=== PATIENT | male | born 1955 | race Caucasian/White ===

== ENCOUNTER 2022-03-08 10:31 | Outpatient (CLI) | payer OTHER, SELFPAY ==
--- OUTSIDE RECORDS SUMMARY | 2022-03-08 08:15 | XMS_ITS | Encounter Summary ---
:1955 Author Organization [facility] Address [address] [place] [id number] Care Team Providers Name Role Phone Unavailable Primary Care Provider Unavailable Reason for Visit Reason Comments Antibiotics Encounter Details Date Type Department Care Team Description 12/30/2021 Clinical Communication Division of Colon and Mathew Handley, Antibiotics Rectal Surgery in .[place], [place] [address] [facility] [address] [place] [id number] [phone] Social History Tobacco Use Types Packs/Day Years Used Date Smoking Tobacco: Every Day Cigarettes 0.3 10 Cigars Smokeless Tobacco: Never Alcohol Use Standard Drinks/Week Comments Yes 8 (1 standard drink = 0.6 oz pure alcoho l) Sex Assigned at Date Recorded Not on file documented as of this encounter Miscellaneous Notes Telephone Encounter - Criselda Burks, RGodwinN. - 12/30/2021 8:50 AM CDT 66 yr old male recently hospitalized for diverticulitis with abscess. He underwent CT aspiration (12/22/2021) of of a loosely organized pericolonic fluid pocket. Cultures/susceptibilities were pending at the time of discharge. He discharged to home on 12/23/2021 on a course of Augmentin. Dr Handley had reviewed the finalized culture information and if the patient was not improved on the current antibiotic (Augmentin), then the antibiotic was to be changed to Bactrim. When we contacted the patient on 12/28 he felt that he was improved and feeling well so the Augmentin was continued. The patient is calling today to report that his pain is better than when hospitalized but he feels that he is not improving as expected. He denies fever. He has some abdominal discomfort he gets up at night to the bathroom. Although the pain is overall less, he is asking about the antibiotic change wediscussed ASSESSMENT PLAN Bactrim was prescribed for 10 days. He is to call tomorrow, before the weekend, to update his status. Over the weekend, if he develops fever, increasing pain, or other worrisome symptoms, then he go for evaluation in the local ER/urgent care for repeat CT imaging to assess for worsening diverticulitis. Disposition/Recommendation: self-care is appropriate at this time, patient encouraged to call back with questions and recommended continue engagement in self-management activities. Information/Education: patient/caller able to teach back. Caller agreeable to plan of care: yes. The following references were used: nursing clinical judgement. Dr Handley is in agreement with this plan. Telephone Encounter - Lyric Schreiber - 12/30/2021 8:05 AM CDT - Communication preference (portal or call): Phone Summary of Call: Patient was told to call in about antibiotics. He is not doing much better and thinks that he needs to be on the antibiotics. [phone] documented in this encounter Plan of Treatment Not on filedocumented as of this encounter Visit Diagnoses Not on filedocumented in this encounter
--- OUTSIDE RECORDS SUMMARY | 2022-03-08 08:15 | XMS_ITS | Clinical Summary ---
:1955 Author Organization [facility] Address [address] [place] [address] Care Team Providers Name Role Phone Unavailable Primary Care Provider Unavailable Source Comments Patient records contain information from all sites at [facility]. For routine questions regarding patient records, call [phone] during business hours, M-F 8:00 AM - 5:00 PM Central Time. Record requests for emergency care only can be directed to [phone] at any time.[facility] Allergies No known active allergies Medications Medication Sig Dispensed Refills Start Date End Date Status lisinopriL Take 1 tablet by 0 09/13/2021 A ctive (PRINIVIL,ZESTRIL) mouth daily. 20 mg tablet aspirin [address] Take 81 mg by mouth 0 04/25/2011 Active tablet daily. clopidogreL Take 75 mg by mouth 0 09/13/2021 Active (PLAVIX) 75 mg daily. tablet ibuprofen Take 400 mg by mouth 0 Active (ADVIL,MOTRIN) 200 every 6 (six) hours mg tablet as needed for pain. UNABLE TO FIND Take 1 each by mouth 0 Active at bedtime as needed (sleep). Med Name: Sleep aid (patient uncertain of active ingredient) atenoloL (TENORMIN) Take 1 tablet (25 mg 0 2 Active 25 mg tablet total) by mouth daily. Please follow up with your PCP. Your heart rate was in the mid 40's-50's during hospitalization and was held for a heart rate <50. Determine with PCP if atenolol should be resumed, discontinued, or dose adjusted. acetaminophen Take 2 tablets (1,000 0 12/23/2021 Active (TYLENOL) 500 mg mg total) by mouth tablet every 6 (six) hours as needed for pain. oxyCODONE Take 1 tablet (5 mg 6 tablet 0 12/23/2021 Active (ROXICODONE) 5 mg total) by mouth every immediate release 4 (four) hours as tabletIndications: needed for moderate Acute Pain pain or score 4-6 of 10 (Take if pain is not relieved with Tylenol. Try to wean off over the next 3 days) Indication: Acute Pain. sulfamethoxazole-tr Take 1 tablet by 20 tablet 0 12/30/2021 Active imethoprim (BACTRIM mouth 2 (two) times a DS) 800-160 mg per day. tablet Active Problems Problem Noted Date Diverticulitis With Abscess 12/21/2021 Hypertensive Heart Disease Without Heart Failure 12/21 Hyperlipidemia 12/21/2021 Other Cerebral Infarction Due To Occlusion Or Stenosis Of Small Artery 12/21/2021 Overview: Formatting of this note might be differe nt from the original. 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 12/30/2021 Clinical Colon and Rectal Mary Handley Antibioti cs Communication Ochoa Ochoa M.D. 12/28/2021 Clinical Colon and Rectal Mary Handley Communication Surgery Jeri Ochoa 12/21/2021 - Hospital Encounter Mary Handley Diverti culitis With 12/23/2021 Jeri Ochoa Abscess (Primar y Dx) from Last 3 Months Immunizations Name Administration Dates Next Due Influenza Split 04/12/2011 Social History Tobacco Use Types Packs/Day Years Used Date Smoking Tobacco: Every Day Cigarettes 0.3 10 Cigars Smokeless Tobacco: Never Alcohol Use Standard Drinks/Week Comments Yes 8 (1 standard drink = 0.6 oz pure alcoho l) Sex Assigned at Date Recorded Not on file Last Filed Vital Signs Vital Sign Reading Time Taken Comments Blood Pressure 176/91 12/23/2021 2:40 PM CDT Pulse 50 12/23/2021 2:40 PM CDT Temperature 36.6 ??C (97.9 ??F) 12/23/2021 2:40 PM CDT Respiratory Rate 15 12/23/2021 2:40 PM CDT Oxygen Saturation 95% 12/23/2021 2:40 PM CDT Inhaled Oxygen Concentration - - Weight 68.2 kg (150 lb 5.7 oz) 12/21/2021 9:15 PM CDT Height 165 cm (5' 4.96) 12/22/2021 11:50 AM CDT Body Mass Index 25.05 12/21/2021 9:15 PM CDT Plan of Treatment Health Maintenance Due Date Last Done Comments CT Colonography 1955 Cologuard 1955 FIT 1955 HIV Screening 1955 Hepatitis C Screening 1955 Tobacco Cessation counseling 1955 Pneumococcal vaccine (65+ years) 1962 (1 - PCV) Lipid (Cholesterol) Screening 07/18/2012 07/18/2011 Colonoscopy 07/14/2013 07/14/2003 (Performed elsewhere), 06/04/2003 Colorectal Cancer Screening 07/14/2013 Depression Screening (Annual 06/12/2021 PHQ-2) COVID-19 Vaccine (4 - Booster for 07/19/2021 05/24/2021, , Pfizer series) 09/26/2020 Influenza Vaccine (#1) 2022 03/30/2021, 04/27/2020, 04/27/2020, Additional history exists Office Visit for Blood Pressure 03/23/2022 12/21/2021 Check / Re-check Creatinine Level 12/21/2022 12/21/2021, 05/25/2018, 09/14/2011, Additional history exists Potassium Level 12/21/2022 12/21/2021, 05/25/2018, 09/14/2011, Additional history exists Sodium Level 12/21/2022 12/21/2021, 05/25/2018, 09/14/2011, Additional history exists Fasting Glucose for Diabetes 12/21/2024 12/21/2021, 018, Screening 08/13/2011, Additional history exists DTaP,Tdap,and Td Vaccines (3 - Td 02/10/2030 02/11/2020, or Tdap) Zoster Vaccines Completed 08/31/2021, 04/14/2021 Abdominal Aortic Aneurysm (AAA) Completed 12/21/2021, 12/10 Screen Fall Risk Screen (Annual) Completed 12/22/2021 Medical Devices Implanted Type Area Implementation Manager Device Shelf Model / Identifier Expiration Serial / Date Lot Band-Annuloplasty Flex-25mm X 63mm - Winter [id number] Cardiac Valve Other/Legacy - Medtronic Implanted: Qty: 1 on 08/10/2011 Prosthesis See Implant Description Description: Device Implementation Manager - Proxama Body Location - Other. Mitral. Device Status Text - [id number]. Procedures Procedure Name Priority Date/Time Associated Comments Diagnosis CT ABSCESS OR RAD - Routine 12/22/2021 3:19 Results fo r this HEMATOMA OR CYST (most inpatients PM CDT procedu re are in ASPIRATION and all the results outpatients) section. BACTERIAL CULTURE, Timed 12/22/2021 2:42 Result s for this ANAEROBIC + SUSC PM CDT procedure a re in the results section. FUNGAL SMEAR Timed 12/22/2021 2:42 Results for this PM CDT procedure are i n the results section. FUNGAL CULTURE, Timed 12/22/2021 2:42 Results f or this ROUTINE PM CDT procedure are i n the results section. GRAM STAIN Timed 12/22/2021 2:42 Results for this PM CDT procedure are i n the results section. BACTERIAL CULTURE, Timed 12/22/2021 2:42 Result s for this AEROBIC + SUSC PM CDT procedure are in the results section. ADULT OXYGEN Routine 12/22/2021 2:40 THERAPY PM CDT CBC WITH Routine 12/21/2021 11:37 Results for this DIFFERENTIAL, B PM CDT procedure ar e in the results section. BASIC METABOLIC Routine 12/21/2021 11:37 Results for this PANEL, S/P PM CDT procedure are i n the results section. OUTSIDE CT BODY Routine 12/21/2021 1:35 Results f or this PM CDT procedure are i n the results section. from Last [address] Abscess or Hematoma or Cyst Aspiration (12/22/2021 3:19 PM CDT) Anatomical Region Laterality Modality Abdominal RST LOS, Vascular N/A Computed Rlof ography, Computed Interventional ARZ LOS, Procedural, Andi graphy Procedure FLA LOS Specimen (Source) Anatomical Collection Method Collection Time Re ceived Time Location / / Volume Laterality 12/22/2021 3:27 PM CDT Impressions 12/22/2021 3:[address]-guided aspiration of a loosely organized pericolonic fluid pocket. NR Narrative 12/22/2021 3:31 PM CDT EXAM: CT ABSCESS OR HEMATOMA OR CYST ASPIRATION PRE-PROCEDURE: Patient seen, evaluated, history reviewed, and approved for sedation. Airway, heart, and lung exam satisfactory for sedation. Discussed risks, benefits, alternatives for procedure, and/or sedation. The roles and responsib ilities of care team members, residents, and fellows were discussed. Patient understands informati on and questions answered. Informed consent obtained from the patient. Immediately prior to starti ng the procedure, in the presence of the assisting personnel, a procedural pause was conduc vasu to verify correct patient identity and verification of procedure to be performed, and as applic able, correct side and site, correct patient position, availability of implants, special equipm ent, or special requirements, and all image and specimen identification data. INTRAPROCEDURE: Moderate sedation was ad ministered by sedation nurse under my supervision. The patient was continuously monitored with real time oxygen saturation, heart rate, ECG rhythm strip and blood pressure throughout administra tion of the sedation and performance of the procedure. The total intra-procedural sedation time was : 15 minutes. TECHNIQUE: Sterile;1% lidocaine for loca l anesthesia and CT Guidance. Supine position. Lateral approach. Initial attempt to place a 10 [place] ReSolve Mini drain into the loosely organized pericolonic fluid was unsuccessful due t o the small size of the collection. Therefore, a 17-gauge introducer was used to aspirate 3 mL of fluid, which was sent for analysis. This was discussed after the procedure with Criselda Burns APRN ([id number]). ?? TARGET LOCATION: Small amount of loosely organized pericolonic fluid as seen on CT abdomen/pelvis 12/21/2021 (series 2, image 87). NEEDLE SIZE: 17 gauge. VOLUME ASPIRATED: 3 mL. FLUID DESCRIPTION: Thick, opaque, brown. COMPLICATION: None. ? BLOOD LOSS: None. PATIENT INSTRUCTIONS: Patient may be dis missed from the radiology department when dismissal criteria met. POST-PROCEDURE DIAGNOSIS: Diverticulitis . Procedure Note Stevie Barrios M.D. - 12/22/2021Forma tting of this note might be different from the original. EXAM: CT ABSCESS OR HEMATOMA OR CYST ASP IRATION PRE-PROCEDURE: Patient seen, evaluated, history reviewed, and approved for sedation. Airway, heart, and lung exam satisfactory for sedation. Discussed risks, benefits, alternatives for procedure, and/or sedation. The roles and responsib ilities of care team members, residents, and fellows were discussed. Patient understands informati on and questions answered. Informed consent obtained from the patient. Immediately prior to starti ng the procedure, in the presence of the assisting personnel, a procedural pause was conduc vasu to verify correct patient identity and verification of procedure to be performed, and as applic able, correct side and site, correct patient position, availability of implants, special equipm ent, or special requirements, and all image and specimen identification data. INTRAPROCEDURE: Moderate sedation was ad ministered by sedation nurse under my supervision. The patient was continuously monitored with real time oxygen saturation, heart rate, ECG rhythm strip and blood pressure throughout administra tion of the sedation and performance of the procedure. The total intra-procedural sedation time was : 15 minutes. TECHNIQUE: Sterile;1% lidocaine for loca l anesthesia and CT Guidance. Supine position. Lateral approach. Initial attempt to place a 10 [place] ReSolve Mini drain into the loosely organized pericolonic fluid was unsuccessful due t o the small size of the collection. Therefore, a 17-gauge introducer was used to aspirate 3 mL of fluid, which was sent for analysis. This was discussed after the procedure with Criselda Burns APRN ([id number]). TARGET LOCATION: Small amount of loosely organized pericolonic fluid as seen on CT abdomen/pelvis 12/21/2021 (series 2, image 87). NEEDLE SIZE: 17 gauge. VOLUME ASPIRATED: 3 mL. FLUID DESCRIPTION: Thick, opaque, brown. COMPLICATION: None. BLOOD LOSS: None. PATIENT INSTRUCTIONS: Patient may be dis missed from the radiology department when dismissal criteria met. POST-PROCEDURE DIAGNOSIS: Diverticulitis . IMPRESSION: CT-guided aspiration of a loosely organi zed pericolonic fluid pocket. NR Shoaib Colmenares APRNNZaria., D.N.P. IMG CT PROCEDURES (ABNORMAL) Bacterial Culture, Aerobic + Susc (12/22/2021 2:42 PM CDT) [facility] Method Time Signature Bacterial ESCHERICHIA COLI 12/25/2021 DTL Culture, 4+ 2:45 PM CDT Aerobic + (A) Susc Comment: Semi-Urgent Result. Bacterial Culture, Aerobic STREPTOCOCCUS INTERMEDIUS 12/25/2021 2:45 PM CDT DTL + Susc 4+ (A) Comment: Susceptibilities not performed per laboratory criteria. Semi-Urgent This is a semi-urgent result [facility] - ([place] Specimen Anatomical Collection Method Collection Time Receive d Time (Source) Location / / Volume Laterality Fluid (Abdomen) 12/22/2021 2:42 PM 2021 6:20 CDT PM CDT Comment: Specimen Source Site: Fluid Organism Antibiotic Method Susceptibility Escherichia coli Ampicillin SUSCEPTIBILITY, >16 mcg/mL: Res istant OSVALDO (MCG/ML) Escherichia coli Ampicillin + Sulbactam SUSCEPTIBILITY, 16/8 mcg /mL: OSVALDO (MCG/ML) Intermediate Escherichia coli Meropenem SUSCEPTIBILITY, <=0.12 mcg/mL: OSVALDO (MCG/ML) Susceptible Escherichia coli Ertapenem SUSCEPTIBILITY, <=0.25 mcg/mL: OSVALDO (MCG/ML) Susceptible Escherichia coli Piperacillin + Tazobactam SUSCEPTIBILITY, <=8/4 mcg/mL: OSVALDO (MCG/ML) Susceptible Escherichia coli Ciprofloxacin SUSCEPTIBILITY, >2 mcg/mL: Resi stant OSVALDO (MCG/ML) Escherichia coli Levofloxacin SUSCEPTIBILITY, >4 mcg/mL: Resi stant OSVALDO (MCG/ML) Escherichia coli Cefazolin SUSCEPTIBILITY, 4 mcg/mL: Inter mediate OSVALDO (MCG/ML) Escherichia coli Ceftriaxone SUSCEPTIBILITY, <=1 mcg/mL: Idania ceptible OSVALDO (MCG/ML) Escherichia coli Ceftazidime SUSCEPTIBILITY, <=4 mcg/mL: Idania ceptible OSVALDO (MCG/ML) Escherichia coli Cefepime SUSCEPTIBILITY, <=2 mcg/mL: Idania ceptible OSVALDO (MCG/ML) Escherichia coli Cefdinir SUSCEPTIBILITY, <=1 mcg/mL: Idania ceptible OSVALDO (MCG/ML) Escherichia coli Amikacin SUSCEPTIBILITY, <=8 mcg/mL: Idania ceptible OSVALDO (MCG/ML) Escherichia coli Gentamicin SUSCEPTIBILITY, >8 mcg/mL: Resi stant OSVALDO (MCG/ML) Escherichia coli Tobramycin SUSCEPTIBILITY, >8 mcg/mL: Resi stant OSVALDO (MCG/ML) Escherichia coli Aztreonam SUSCEPTIBILITY, <=4 mcg/mL: Idania ceptible OSVALDO (MCG/ML) Escherichia coli Trimethoprim + SUSCEPTIBILITY, <=0.5/9.5 mcg/m L: Sulfamethoxazole OSVALDO (MCG/ML) Susceptible Alyse Luciano APRN, Gerard.N.P., D.N.P. LAB MICROBIOLOGY - GENERAL ORDERABLES Performing Organization Address City/[facility] Phon e Number [facility] - [id number] [place] [address] Fungal Smear (12/22/2021 2:42 PM CDT) P athologist Signature Fungal Smear Negative. 12/23/2021 DTL 8:49 AM CDT Specimen Anatomical Collection Method Collection Time Receive d Time (Source) Location / / Volume Laterality Fluid (Abdomen) 12/22/2021 2:42 PM 2021 6:20 CDT PM CDT Comment: Specimen Source Site: Fluid Shoaib Colmenares APRNN.P., D.N.P. LAB MICROBIOLOGY - GENERAL ORDERABLES Performing Organization Address City/[facility] Phon e Number [facility] - [address] (ABNORMAL) Gram Stain (12/22/2021 2:42 PM CDT) Analysis Performed At Patho logist Time Signature Gram Stain White blood 12/22/2021 DTL cells, Many. 10:36 PM CDT (A) Gram Stain GRAM POSITIVE COCCI 12/22/2021 DTL Many. 10:36 PM CDT (A) Comment: Semi-Urgent Result. Semi-Urgent This is a semi-urgent result [facility] - ([place] Specimen Anatomical Collection Method Collection Time Receive d Time (Source) Location / / Volume Laterality Fluid (Abdomen) 12/22/2021 2:42 PM 2021 6:20 CDT PM CDT Comment: Specimen Source Site: Fluid Gerard Colmenares APRN.N.P., D.N.P. LAB MICROBIOLOGY - GENERAL ORDERABLES Performing Organization Address City/[facility] Phon e Number [facility] - [address] [place] [address] Fungal Culture, Routine (12/22/2021 2:42 PM CDT) [facility] Method Time Signature Fungal No growth 01/16/2022 DTL Culture, after 24 1:02 AM CDT Routine days of incubation. Specimen Anatomical Collection Method Collection Time Receive d Time (Source) Location / / Volume Laterality Fluid (Abdomen) 12/22/2021 2:42 PM 2021 6:20 CDT PM CDT Comment: Specimen Source Site: Fluid Shoaib Colmenares APRNN.P., D.N.P. LAB MICROBIOLOGY - GENERAL ORDERABLES Performing Organization Address City/[facility]/ZIP Code Phon e Number [facility] - [address] Bacterial Culture, Anaerobic + Susc (12/22/2021 2:42 PM CDT) [facility] Method Time Signature Bacterial No growth 12/29/2021 DTL Culture, after 7 7:22 AM CDT Anaerobic + days of Susc incubation. Specimen Anatomical Collection Method Collection Time Receive d Time (Source) Location / / Volume Laterality Fluid (Abdomen) 12/22/2021 2:42 PM 2021 6:20 CDT PM CDT Comment: Specimen Source Site: Fluid Gerard Colmenares APRN.N.P., D.N.P. LAB MICROBIOLOGY - GENERAL ORDERABLES Performing Organization Address City/State/ZIP Code Phon e Number [facility] - [address] [place], [place] [address] [facility] [place] [place] [address] [facility] 200 [facility] (ABNORMAL) CBC with Differential, Blood (12/21/2021 11:37 PM CDT) [facility] Method Time Signature Hemoglobin 12.2 (L) 13.2 - 12/22/2021 DTL 16.6 g/dL 1:05 AM CDT Hematocrit 35.7 (L) 38.3 - 12/22/2021 DTL 48.6 % 1:05 AM CDT Erythrocytes 3.67 (L) 4.35 - 12/22/2021 DTL 5.65 1:05 AM CDT x10(12)/L MCV 97.3 78.2 - 12/22/2021 DTL 97.9 fL 1:05 AM CDT RBC Distrib Width 11.7 (L) 11.8 - 12/22/2021 DTL 14.5 % 1:05 AM CDT Platelet Count 246 135 - 317 12/22/2021 DTL x10(9)/L 1:05 AM CDT Leukocytes 10.2 (H) 3.4 - 9.6 12/22/2021 DTL x10(9)/L 1:05 AM CDT Neutrophils 7.62 (H) 1.56 - 12/22/2021 DTL 6.45 1:05 AM CDT x10(9)/L Lymphocytes 1.64 0.95 - 12/22/2021 DTL 3.07 1:05 AM CDT x10(9)/L Monocytes 0.83 (H) 0.26 - 12/22/2021 DTL 0.81 1:05 AM CDT x10(9)/L Eosinophils 0.09 0.03 - 12/22/2021 DTL 0.48 1:05 AM CDT x10(9)/L Basophils <0.03 0.01 - 12/22/2021 DTL 0.08 1:05 AM CDT x10(9)/L Specimen Anatomical Collection Method Collection Time Receive d Time (Source) Location / / Volume Laterality Blood (Blood, 12/21/2021 11:37 12/22/2021 Venous) PM CDT 12:59 AM CDT Shoaib Colmenares APRNNGodwinP., D.N.P. LAB BLOOD ADD-ON Performing Organization Address City/State/ZIP Code Phon e Number [facility] - [address] [place], [place] [address] [facility] [place] [place] [address] [facility] 200 [facility] (ABNORMAL) Basic Metabolic Panel (12/21/2021 11:37 PM CDT) P athologist Signature Potassium, S 3.9 3.6 - 5.2 12/22/2021 DTL mmol/L 1:25 AM CDT Sodium, S 135 135 - 145 12/22/2021 DTL mmol/L 1:25 AM CDT Chloride, S 101 98 - 107 12/22/2021 DTL mmol/L 1:25 AM CDT Bicarbonate, S 20 (L) 22 - 29 12/22/2021 DTL mmol/L 1:25 AM CDT Anion Gap 14 7 - 15 12/22/2021 DTL 1:25 AM CDT BUN (Blood Urea 14 8 - 24 12/22/2021 DTL Nitrogen), S mg/dL 1:25 AM CDT Creatinine 1.03 0.74 - 12/22/2021 DTL 1.35 mg/dL 1:25 AM CDT eGFR-Non 76 >=60 12/22/2021 DTL Black/ mL/min/BSA 1:25 AM CDT Vietnamese Comment: ----ADDITIONAL INFORMATION---- Estimated GFR calculated using the 2009 CKD_EPI creatinine equation. eGFR-Black/ 88 >=60 mL/min/BSA 2021 1:25 AM CDT DTL Comment: ----ADDITIONAL INFORMATION---- Estimated GFR calculated using the 2009 CKD_EPI creatinine equation. Calcium, Total, S 8.4 (L) 8.8 - 10.2 mg/dL 12/22/2021 1:25 AM CDT DTL Glucose, S 79 70 - 140 mg/dL 12/22/2021 1:25 AM CDT D TL Specimen Anatomical Collection Method Collection Time Receive d Time (Source) Location / / Volume Laterality Blood (Blood, 12/21/2021 11:37 12/22/2021 1:09 Venous) PM CDT AM CDT Alyse Luciano APRN, C.N.P., D.N.P. LAB BLOOD ADD-ON Performing Organization Address City/State/ZIP Code Phon e Number [facility] - [address] [place], [place] [address] [facility] [place] [place] [address] [facility] [address] ABDOMEN PELVIS W-Outside CT Body (12/21/2021 1:35 PM CDT) Specimen (Source) Anatomical Collection Method Collection Time Re ceived Time Location / / Volume Laterality 12/21/2021 1:31 PM CDT Narrative [facility] - 12/21/2021 5:19 PM CDT This order has been created and auto-finalized to support the import of outside images. If available, original i nterpretation can be found on the Media Tab in Chart Review, in Document V iewer, or as an image in QREADS. If a re-interpretation or overread is re quired please follow defined workflow. ?? Provider Not In System IMG CT PROCEDURES Performing Organization Address City/State/ZIP Code Phon e Number [facility] IIMS NA from Last 3 Months Insurance Payer Benefit Plan / Subscriber ID Effective Phone Address T ype Group Dates [facility] [id number] 2010-Pr OCC CLAIMS I ndemnity ADMINISTRATION es[employer] [place] [address] [place] [address]
--- OUTSIDE RECORDS SUMMARY | 2022-03-08 08:15 | XMS_ITS | Encounter Summary ---
:[address] [facility] Address [address] [place] [address] Care Team Providers Name Role Phone Unavailable Primary Care Provider Unavailable Reason for Visit Reason Comments Update on antibiotics Encounter Details Date Type Department Care Team Description 12/31/2021 Clinical Communication Division of Colon Hafsa Handley Update on and Rectal Surgery Jeri Ochoa antibiotics in [place], [address] [place] [address] [address] [facility] [address] [place], [place] [phone] (Work) [phone] Social History Tobacco Use Types Packs/Day Years Used Date Smoking Tobacco: Every Day Cigarettes 0.3 10 Cigars Smokeless Tobacco: Never Alcohol Use Standard Drinks/Week Comments Yes 8 (1 standard drink = 0.6 oz pure alcoho l) Sex Assigned at Date Recorded Not on file documented as of this encounter Miscellaneous Notes Telephone Encounter - Lyric Schreiber - 12/31/2021 10:45 AM CDT - Communication preference (portal or call): Phone - if necessary Summary of Call: Patient started new antibiotic on . He is doing better on his antibiotics -so he will stay the course. [facility] in [place]. [phone] if you need to talk with him. documented in this encounter Plan of Treatment Not on filedocumented as of this encounter Visit Diagnoses Not on filedocumented in this encounter
--- OUTSIDE RECORDS SUMMARY | 2022-03-08 08:15 | XMS_ITS | Encounter Summary ---
:1955 Author Organization [facility] Address [address] [place] [address] Care Team Providers Name Role Phone Unavailable Primary Care Provider Unavailable Encounter Details Date Type Department Care Team Description 12/28/2021 Clinical Communication Division of Colon and Mathew Handley, Rectal Surgery in .[place], [place] [address] [facility] [address] [place] [phone] Social History Tobacco Use Types Packs/Day Years Used Date Smoking Tobacco: Every Day Cigarettes 0.3 10 Cigars Smokeless Tobacco: Never Alcohol Use Standard Drinks/Week Comments Yes 8 (1 standard drink = 0.6 oz pure alcoho l) Sex Assigned at Date Recorded Not on file documented as of this encounter Miscellaneous Notes Telephone Encounter - Criselda Burks RGodwinN. - 12/28/2021 9:16 AM CDT 66 yr old male recently hospitalized for diverticulitis with abscess. He underwent CT aspiration (12/22/2021) of of a loosely organized pericolonic fluid pocket. Cultures/susceptibilities were pending at the time of discharge. He discharged to home on 12/23/2021 on a course of Augmentin. Dr Handley has reviewed the finalized culture information and has asked me to contact the patient to update his status. If he is not improved, the antibiotic can be changed to Bactrim. If he is improvedand feeling well, he can finish the course of Augmentin. Mr Mulligan states that he is feeling improved and feels he is on the right track with regard to his current management. He states he has some soreness over the aspiration site but in general he is feeling much better. I have asked him to call us on 12/31/2021 to update his status. He will call earlier if he isconcerned about any symptoms. If he is not feeling remarkably improved, we will consider changing the antibiotic to Bactrim. He has the phone number to call Dr Handley office. documented in this encounter Plan of Treatment Not on filedocumented as of this encounter Visit Diagnoses Not on filedocumented in this encounter
--- OUTSIDE RECORDS SUMMARY | 2022-03-08 08:15 | XMS_ITS | Encounter Summary ---
:1955 Author Organization [facility] Address [address] [place] [address] Care Team Providers Name Role Phone Unavailable Primary Care Provider Unavailable Encounter Details Date Type Department Care Team Description 12/30/2021 Orders Only Division of Colon and Criselda Burks , Rectal Surgery in [place], [place] [address] [place] [phone] Social History Tobacco Use Types Packs/Day Years Used Date Smoking Tobacco: Every Day Cigarettes 0.3 10 Cigars Smokeless Tobacco: Never Alcohol Use Standard Drinks/Week Comments Yes 8 (1 standard drink = 0.6 oz pure alcoho l) Sex Assigned at Date Recorded Not on file documented as of this encounter Plan of Treatment Not on filedocumented as of this encounter Visit Diagnoses Not on filedocumented in this encounter
--- OUTSIDE RECORDS SUMMARY | 2022-03-08 08:15 | XMS_ITS | Clinical Summary ---
:1955 Author Organization [facility] [place] [address] Care Team Providers Name Role Phone Clinic, [facility] Primary Care Provider [phone] Allergies No known active allergies Medications Medication Sig Dispensed Refills Start Date End Date Status aspirin enteric coated Take 1 tablet by 0 04/25/2011 Active 81 mg tablet mouth once daily with a meal. lisinopriL (PRINIVIL; Take 1 Tablet (20 30 Tablet 0 09/13/2021 Active ZESTRIL) 20 mg mg) by mouth once tabletIndications: daily. Essential hypertension atenoloL (TENORMIN) 25 Take 1 Tablet (25 30 Tablet 0 2 Active mg tabletIndications: mg) by mouth once Essential hypertension daily. clopidogreL (PLAVIX) 75 Take 1 Tablet (75 90 Tablet 1 09/14/19 22 Active mg tabletIndications: mg) by mouth once Lt facial numbness, daily. Vertebral artery stenosis, left trimethoprim-sulfametho Take 1 tablet by 20 Tablet 0 2 Active xazole, 160-800 mg, mouth 2 (two) (BACTRIM DS, SEPTRA DS) times a day. tab Active Problems Problem Noted Date Encounter for immunization 12/21/2021 Hyperlipidemia 12/21/2021 Lacunar infarction 12/21/2021 Overview: Sep 01, 2020 Entered By: BAUDILIO RENE Comment: 2019 Other specified postprocedural states 12/21/2021 Vertebral artery stenosis 12/21/2021 Personal history of colonic polyps 10/19/2015 HTN (hypertension) 04/25/2011 Resolved Problems Problem Noted Date Resolved Date Mitral valve disorders 08/18/2011 09/24/2011 Encounters Date Type Specialty Care Team Description 12/21/2021 Emergency Osman Burns Diverticulit is of large MD Ja intestine with abscess, unspecified ble eding status (Primary Dx) 12/21/2021 Hospital Encounter Alma Lezama Lef t lower quadrant WHEEL AND [employer]INION INSPECTOR abdominal pain 12/21/2021 Office Visit Alma Lezama Abdominal Pain WHEEL AND PINION INSPECTOR 12/21/2021 Travel from Last 3 Months Immunizations Name Administration Dates Next Due Amb Influenza, Inact (Intradermal)(age 18-64 Yrs)(Flu 2014 Clinic Only) Influenza Virus, Unspecified 04/12/2011 Tdap 03/07/2008 Family History Medical History Relation Name Comments Dementia Mother Hypertension Mother Relation Name Status Comments Father (Age 79) old age Mother Alive good health Social History Tobacco Use Types Packs/Day Years Used Date Current Some Day Smoker Cigars Quit : 02/23/2011 Smokeless Tobacco: Never Used Tobacco Cessation: Ready to Quit: Yes; C ounseling Given: Yes Alcohol Use Standard Drinks/Week Comments Yes 12 (1 standard drink = 0.6 oz pure alcoh ol) social Alcohol Habits Answer Date Recorded How often do you have a drink containing alcohol? Not asked How many drinks containing alcohol do you have on a typical Not asked day when you are drinking? How often do you have six or more drinks on one occasion? No t asked Comment: social 10/05/2009 Sex Assigned at Date Recorded Not on file Obstetrics History Last Filed Vital Signs Vital Sign Reading Time Taken Comments Blood Pressure 156/103 12/21/2021 6:00 PM CDT Pulse 62 12/21/2021 6:00 PM CDT Temperature 36.8 ??C (98.3 ??F) 12/21/2021 4:07 PM CDT Respiratory Rate 16 12/21/2021 6:00 PM CDT Oxygen Saturation 95% 12/21/2021 6:00 PM CDT Inhaled Oxygen Concentration - - Weight 68 kg (150 lb) 12/21/2021 4:07 PM CDT Height 165.1 cm (5' 5) 12/21/2021 4:07 PM CDT Body Mass Index 24.96 12/21/2021 4:07 PM CDT Plan of Treatment Health Maintenance Due Date Last Done Comments Hepatitis C screening for age 0611[birth year]28/1974 18-79 Zoster (shingles) series for age 0611/28/2006 50+ (1 of 2) Tetanus booster 03/07/2018 03/07/2008 Lipids for age 45-75 03/17/2019 03/17/2014, 12/05/2011, 10/11/2011, Additional history exists Colonoscopy through age 75 10/18/2020 10/19/2015, 6, 05/15/2003 BMI (ht and wt on same day) for 01/27/2021 01/28/2020, 09/2018, age 18+ 02/26/2019, Additional history exists Depression screening for age 12+ 01/27/2021 01/28/2020, 09/2018, 01/08/2019, Additional history exists COVID-19 vaccine series (2 - 06/21/2021 05/24/2021 Moderna series) Pneumococcal series for age 65+ (1 2021 - PCV) Influenza for age 65+ 02/10/2022 04/12/2011 Tdap Completed 03/07/2008 AAA screening age 55-77 Completed 12/21/2021 Procedures Procedure Name Priority Date/Time Associated Comments Diagnosis COVID 19 STAT 12/21/2021 4:17 PM Results f or this CDT procedure are i n the results section. COVID 19 COLLECTION STAT 12/21/2021 4:17 PM Re sults for this CDT procedure are i n the results section. BLOOD CULTURE STAT 12/21/2021 4:12 PM Results for this CDT procedure are i n the results section. BLOOD CULTURE STAT 12/21/2021 4:05 PM Results for this CDT procedure are i n the results section. CT ABDOMEN PELVIS W STAT 12/21/2021 1:35 PM Left lower quad rant Results for this CDT abdominal pain procedure are in the results section. CBC WITH AUTO STAT 12/21/2021 12:57 Left lower quadrant Res ults for this DIFFERENTIAL PM CDT abdominal pain procedure are in the results section. C-REACTIVE PROTEIN STAT 12/21/2021 12:57 Left lower quadran t Results for this PM CDT abdominal pain procedure are in the results section. CBC WITH AUTO STAT 12/21/2021 12:57 Left lower quadrant Res ults for this DIFFERENTIAL PM CDT abdominal pain procedure are in the results section. COMP METABOLIC PANEL STAT 12/21/2021 12:57 Left lower quadr ant Results for this PM CDT abdominal pain procedure are in the results section. URINALYSIS STAT 12/21/2021 12:43 Left lower quadrant Resu lts for this MICROSCOPIC PM CDT abdominal pain procedure are in the results section. UA W/ SEDIMENT EXAM STAT 12/21/2021 12:43 Left lower quadra nt Results for this REFLEXED PER CRITERIA PM CDT abdominal pain proc edure are in the results section. from Last 3 Months Results COVID 19 (12/21/2021 4:17 PM CDT) [facility] Method Time Signature COVID 19 Not detected Not detected 12/21/2021 [facility] 4:46 PM CDT [facility] Specimen Anatomical Location / Collection Method Collection Pro e Received Time (Source) Laterality / Volume Other SPECIMEN FROM Non-Blood / 12/21/2021 4:17 12/21/2021 4:24 NASOPHARYNGEAL Unknown PM CDT PM CDT STRUCTURE / Unknown Narrative [facility] - 4:46 PM CDT This test has been authorized by FDA und er an Emergency Use Authorization (EUA). This test is only authorized for the duration of time the declaration that circumstances exist justifying the authorization of th e emergency use of in vitro diagnostic tests for detection of SARS-CoV-2 virus and/or diagnosis of COVID-19 infection under section 564(b)(1) of the Act, 21 U.S.C. 360bbb-3(b) (1), unless the authorization is terminated or revoked sooner. Osman Burns MD MICROBIOLOGY Performing Organization Address City/State/ZIP Code Phon e Number [facility] [address] [place] [address] COVID 19 COLLECTION (12/21/2021 4:17 PM CDT) Patholo gist Method Time Signature TESTING [facility] 12/21/2021 [place] [facility] 4:[address] [facility] Comment: Specimen submitted to [facility] for testing. Specimen Anatomical Location / Collection Method Collection Pro e Received Time (Source) Laterality / Volume Other SPECIMEN FROM Non-Blood / 12/21/2021 4:17 12/21/2021 4:24 NASOPHARYNGEAL Unknown PM CDT PM CDT STRUCTURE / Unknown Osman Burns MD SEND OUTS Performing Organization Address City/[facility]/ZIP [facility] Phon e Number [facility] [address] [place] [address] BLOOD CULTURE (12/21/2021 4:12 PM CDT)Only the most recent of2 resultswithin the time period is included. athologist Signature CULTURE No growth 12/26/2021 [place] to date. 10:[address] [facility] Specimen Anatomical Collection Method Collection Time Receive d Time (Source) Location / / Volume Laterality Blood BLOOD SPECIMEN / Butterfly / 12/21/2021 4:12 PM 12/21 4:16 Unknown Unknown CDT PM CDT Osman Burns MD MICROBIOLOGY Performing Organization Address [facility] Phon e Number [facility] [address] [place] [address] CT ABDOMEN PELVIS W (12/21/2021 1:35 PM CDT) Anatomical Region Laterality Modality Abdomen, Pelvis, AORTA, LIVER, SPLEEN Co mputed Tomography Specimen (Source) Anatomical Collection Method Collection Time Re ceived Time Location / / Volume Laterality 12/21/2021 2:40 PM CDT Addenda Addendum by Fausto Arias MD on 12/21/2021 2:52 PM CDT Indication: Left lower quadrant abdominal pain Technique: Volumetric multidetector CT images of abdomen and pelvis were obtained after the administration of intravenous contrast. 100 cc Visipaque 320 low osmolar intrave nous contrast Comparison: None available. Findings: The lung bases are clear. The liver is mildly enlarged with minima l hepatic steatosis. The portal vein is patent. The gallbladder is unremarkable without evidence of radiopaque calculus. There is no significant common biliary d uctal dilatation or abrupt cut off. The spleen is normal in enhancement and size. There is mild thickening of the gastric antrum commensurate with chronic gastritis changes. There is mild mucosal hyperemia. The pancreas is normal in enhancement wi thout significant atrophy. The adrenal glands are unremarkable. The kidneys demonstrate preserved cortic omedullary differentiation without evidence of obstructive uropathy. There is marked sigmoid diverticulosis w ith extensive focal thickening and pericolonic inflammation of the mid sigm oid colon. There is demonstration of a rim enhancing fluid collection andrew g the anti mesenteric surface with additional thickening and secondary infl ammation of an adjacent small bowel loop. Fluid collection measures 3. 7 centimeters in greatest dimension. The appendix is unremarkable. There is no significant mesenteric, retr operitoneal, or pelvic sidewall lymph nodes. The aorta is nonaneurysmal. ??There is n o significant atherosclerotic disease appreciated. There is mild thickening of the bladder which is non distended. There is no free fluid or free air. There is a small fat containing umbilica l hernia. Lumbar vertebral body heights are grossl y maintained with [id number] multilevel degenerative disc disease. Th ere is moderate facet arthrosis. Impression: Marked sigmoid diverticulosis with focal thickening and pericolonic inflammation of the mid sigmoid colon ca ncer with diverticulitis with demonstration of a contained abscess pepper ng the anti mesenteric border measuring 3.7 centimeters. There is seco ndary focal inflammatory change of an adjacent loop of small bowel. No evidence of intra-abdominal free air or free fluid. Please note that all CT scans at this [facility] use dose modulation, iterative reconstruction, and/or weight- based dosing when appropriate to reduce radiation dose to as low as reaso nably achievable. Dictated by Fausto rAias MD @ 2 2:40:43 PM ----- ADDENDUM ----- The impression of the report should stat e that there is focal segmental thickening of the mid sigmoid colon cons istent with diverticulitis with a contained abscess along the anti mesente kavin border measuring 3.7 centimeters. No definite evidence of colon cancer is appreciated. Findings were discussed with Alma christianson at 2:50 p.m. ?? December 21, 2021 Dictated by Fausto Arias MD @ Dec 21 2 022 ??2:50PM (Electronically Signed) Narrative 12/21/2021 2:40 PM CDT For Patients: ??As a result of the Century Cures Act, medical imaging exams and procedure report s are released immediately into your [facility] medical record. ??You may view this report before your referring provider. ??If you have questions, please contact your health care provider. Indication: Left lower quadrant abdominal pain Technique: Volumetric multidetector CT images of th e abdomen and pelvis were obtained after the administration of intravenous contrast. 100 cc Visipaque 320 low osmolar intrave nous contrast Comparison: None available. Findings: The lung bases are clear. The liver is mildly enlarged with minima l hepatic steatosis. The portal vein is patent. The gallbladder is unremarkable without evidence of radiopaque calculus. There is no significant common biliary d uctal dilatation or abrupt cut off. The spleen is normal in enhancement and size. There is mild thickening of the gastric antrum commensurate with chronic gastritis changes. There is mild mucosal hyperemia. The pancreas is normal in enhancement wi thout significant atrophy. The adrenal glands are unremarkable. The kidneys demonstrate preserved cortic omedullary differentiation without evidence of obstructive uropathy. There is marked sigmoid diverticulosis w ith extensive focal thickening and pericolonic inflammation of the mid sigmoid colon. There is demonstration of a rim enhancing fluid collection along the anti me senteric surface with additional thicken ing and secondary inflammation of an adjacent small bowel loop. Fluid collection measures 3.7 centimeters in greatest dimension. The appendix is unremarkable. There is no significant mesenteric, retr operitoneal, or pelvic sidewall lymph nodes. The aorta is nonaneurysmal. ??There is n o significant atherosclerotic disease appreciated. There is mild thickening of the bladder which is non distended. There is no free fluid or free air. There is a small fat containing umbilica l hernia. Lumbar vertebral body heights are grossl y maintained with [id number] multilevel degenerative disc disease. There is moderate facet arthrosis. Impression: Marked sigmoid diverticulosis with focal thickening and pericolonic inflammation of the mid sigmoid colon cancer with diverticulitis with demonstration of a contained abscess along the anti mesenteric b order measuring 3.7 centimeters. There i s secondary focal inflammatory change of an adjacent loop of small bowel. No evidence of intra-abdominal free air or free fluid. Please note that all CT scans at this fa cility use dose modulation, iterative reconstruction, and/or weight-based dosing when appropriate to reduce radiation dose to as low as reasonably achievable. Dictated by Fausto Arias MD @ 2:40:43 PM (Electronically Signed) Procedure Note Fausto Arias MD - 12/21/2021Fo rmatting of this note might be different from the original. For Patients: As a result of the ntury Cures Act, medical imaging exams and procedure reports are released immediately into your electronic medical record. You may view this report before your referring provider. If you have questions, please contact [facility] care provider. Indication: Left lower quadrant abdominal pain Technique: Volumetric multidetector CT images of th e abdomen and pelvis were obtained after the administration of intravenous contrast. 100 cc Visipaque 320 low osmolar intrave nous contrast Comparison: None available. Findings: The lung bases are clear. The liver is mildly enlarged with minima l hepatic steatosis. The portal vein is patent. The gallbladder is unremarkable without evidence of radiopaque calculus. There is no significant common biliary d uctal dilatation or abrupt cut off. The spleen is normal in enhancement and size. There is mild thickening of the gastric antrum commensurate with chronic gastritis changes. There is mild mucosal hyperemia. The pancreas is normal in enhancement wi thout significant atrophy. The adrenal glands are unremarkable. The kidneys demonstrate preserved cortic omedullary differentiation without evidence of obstructive uropathy. There is marked sigmoid diverticulosis w ith extensive focal thickening and pericolonic inflammation of the mid sigmoid colon. There is demonstration of a rim enhancing fluid collection along the anti mesenteric surface with additional thickening and secondary infl ammation of an adjacent small bowel loop. Fluid collection measures 3.7 centimeters in greatest dimension. The appendix is unremarkable. There is no significant mesenteric, retr operitoneal, or pelvic sidewall lymph nodes. The aorta is nonaneurysmal. There is no significant atherosclerotic disease appreciated. There is mild thickening of the bladder which is non distended. There is no free fluid or free air. There is a small fat containing umbilica l hernia. Lumbar vertebral body heights are grossl y maintained with [id number] multilevel degenerative disc disease. There is moderate facet arthrosis. Impression: Marked sigmoid diverticulosis with focal thickening and pericolonic inflammation of the mid sigmoid colon cancer with diverticulitis with demonstration of a contained abscess along the anti mesenteric border measuring 3.7 centimeters. There is seco ndary focal inflammatory change of an adjacent loop of small bowel. No evidence of intra-abdominal free air or free fluid. Please note that all CT scans at this [facility] use dose modulation, iterative reconstruction, and/or weight-based dosing when appropriate to reduce radiation dose to as low as reasonably achievable. Dictated by Fausto Arias MD @ 2:40:43 PM (Electronically Signed) Alma Lezama WHEEL AND PINION INSPECTOR CT (ABNORMAL) CBC WITH AUTO DIFFERENTIAL (12/21/2021 12:57 PM CDT) [facility] Method Time Signature WHITE BLOOD 10.5 4.5 - 12/21/2021 [place] COUNT 11.0 1:10 PM [facility] thou/cu LABORATORY mm RED BLOOD COUNT 4.17 (L) 4.30 - 12/21/2021 [place] 5.90 1:10 PM [facility] mil/cu mm LABORATORY HEMOGLOBIN 14.0 13.5 - 12/21/2021 [place] 17.5 g/dL 1:10 PM [facility] LABORATORY HEMATOCRIT 40.4 37.0 - 12/21/2021 [place] 53.0 % 1:10 PM T [facility]ORATORY MCV 97 80 - 100 12/21/2021 [place] fL 1:10 PM [facility] LABORATORY MCH 33.6 26.0 - 12/21/2021 [place] 34.0 pg 1:10 PM [facility] LAB[facility]ATORY MCHC 34.7 32.0 - 12/21/2021 [place] 36.0 g/dL 1:10 PM [facility] LABORATORY RDW 12.3 11.5 - 12/21/2021 [place] 15.5 % 1:10 PM [facility] PLATELET COUNT 292 140 - 440 12/21/2021 [place] thou/cu 1:10 PM CDT [facility] mm LABORATORY MPV 8.8 6.5 - 12/21/2021 [place] 11.0 fL 1:10 PM [facility] LABORATORY % NEUT 75.9 % 12/21/2021 [place] 1:10 PM [facility] LABORATORY % LYMPH 15.6 % 12/21/2021 [place] 1:10 PM [facility] % MONO 7.3 % 12/21/2021 [place] 1:10 PM [facility]T [facility] % EOS 1.0 % 12/21/2021 [place] 1:10 PM T [facility] LABORATORY % BASO 0.2 % 12/21/2021 [place] 1:10 PM T [facility] LABORATORY ABSOLUTE 8.0 (H) 1.7 - 7.0 12/21/2021 [place] NEUTROPHILS thou/cu 1:10 PM T [facility] mm LABORATORY ABSOLUTE 1.6 0.9 - 2.9 12/21/2021 [place] LYMPHOCYTES thou/cu 1:10 PM T [facility] mm LABORATORY ABSOLUTE 0.8 <0.9 12/21/2021 [place] MONOCYTES thou/cu 1:10 PM T [facility] mm LABORATORY ABSOLUTE 0.1 <0.5 12/21/2021 [place] EOSINOPHILS thou/cu 1:10 PM T [facility] mm LABORATORY ABSOLUTE 0.0 <0.3 12/21/2021 [place] BASOPHILS thou/cu 1:10 PM [facility] mm LABORATORY Specimen Anatomical Collection Method / Collection Time Recei calvin Time (Source) Location / Volume Laterality Blood BLOOD SPECIMEN / Venipuncture / 12/21/2021 12:57 12/21 Unknown Unknown PM CDT 12:58 PM CDT Alma Kristina Lezama WHEEL AND PINION INSPECTOR HEMATOLOGY Performing Organization Address City/[facility] Phon e Number [facility] [address] [place] [address] (ABNORMAL) C-REACTIVE PROTEIN (12/21/2021 12:57 PM CDT) [facility] gist Method Time Signature C-REACTIVE 14.15 (H) <0.50 12/21/2021 [facility] PROTEIN mg/dL 1:17 PM [facility] Specimen Anatomical Collection Method / Collection Time Recei calvin Time (Source) Location / Volume Laterality Blood BLOOD SPECIMEN / Venipuncture / 12/21/2021 12:57 12/21 Unknown Unknown PM CDT 12:58 PM CDT Alma E Lise WHEEL AND PINION INSPECTOR CHEMISTRY Performing Organization Address City/State/ZIP Code Phon e Number [facility] [address] [place] [address] (ABNORMAL) COMP METABOLIC PANEL (12/21/2021 12:57 PM CDT) [facility] Method Time Signature SODIUM 137 135 - 145 12/21/2021 [place] mmol/L 1:21 PM [facility]ORY POTASSIUM 4.3 3.5 - 5.0 12/21/2021 [place] mmol/L 1:21 PM [facility] LAB[facility]ORY CHLORIDE 104 98 - 110 12/21/2021 [place] mmol/L 1:21 PM [facility]ORY CO2,TOTAL 25 21 - 31 12/21/2021 [place] mmol/L 1:21 PM [facility] ANION GAP 8 5 - 18 12/21/2021 [place] 1:21 PM [facility] GLUCOSE 87 65 - 100 12/21/2021 [place] mg/dL 1:21 PM [facility] CALCIUM 9.5 8.5 - 10.5 12/21/2021 [place] mg/dL 1:21 PM [facility] BUN 17 8 - 25 12/21/2021 [place] mg/dL 1:21 PM [facility] CREATININE 1.05 0.72 - 12/21/2021 [place] 1.25 mg/dL 1:21 PM [facility] BUN/CREAT RATIO 16 10 - 20 12/21/2021 [place] 1:21 PM [facility] ALBUMIN 3.9 3.2 - 4.6 12/21/2021 [place] g/dL 1:21 PM [facility] PROTEIN,TOTAL 7.7 6.0 - 8.0 12/21/2021 [place] g/dL 1:21 PM [facility] GLOBULIN 3.8 (H) 2.0 - 3.7 12/21/2021 [place] g/dL 1:21 PM [facility] A/G RATIO 1.0 1.0 - 2.0 12/21/2021 [place] 1:21 PM [facility] BILIRUBIN,TOTAL 0.5 0.2 - 1.2 12/21/2021 [place] mg/dL 1:21 PM [facility] ALK PHOSPHATASE 69 50 - 136 12/21/2021 [place] IU/L 1:21 PM [facility] ALT (SGPT) 39 8 - 45 12/21/2021 [place] IU/L 1:21 PM [facility] AST (SGOT) 30 2 - 40 12/21/2021 [place] IU/L 1:21 PM [facility] eGFR 79 (L) >90 12/21/2021 [place] mL/min/1.7 1:21 PM [facility] 3m2 LABORATORY Comment: As of 2021, eGFR is calcu lated by the CKD-EPI creatinine equation without race adjustment. eGFR can be inf luenced by muscle mass, exercise, and diet. The reported eGFR is an estimation only and is only applicable if the renal function is stable. Specimen Anatomical Collection Method / Collection Time Recei calvin Time (Source) Location / Volume Laterality Blood BLOOD SPECIMEN / Venipuncture / 12/21/2021 12:57 12/21 Unknown Unknown PM CDT 12:58 PM CDT Alma Lezama WHEEL AND PINION INSPECTOR CHEMISTRY Performing Organization Address City/State/ZIP Code Phon e Number [facility] [address] [place] [address] (ABNORMAL) URINALYSIS MICROSCOPIC (12/21/2021 12:43 PM CDT) [facility] gist Method Time Signature RBC 0-2 0-2, None 12/21/2021 [place] Seen /HPF 1:03 PM [facility] WBC 0-2 0-2, 3-5, 12/21/2021 [place] None Seen 1:03 PM [facility] /HPF LABORATORY BACTERIA Many (A) None Seen, 12/21/2021 [place] Rare, Few 1:03 PM [facility] Bacteria/H LABORATORY PF EPITHELIAL Few None Seen, 12/21/2021 [place] CELLS Few 1:03 PM [facility] Epi/HPF LABORATORY Mucus Present 12/21/2021 [place] 1:03 PM [facility] Specimen Anatomical Collection Method Collection Time Receive d Time (Source) Location / / Volume Laterality Urine URINE SPECIMEN / Non-Blood / 12/21/2021 12:43 022 Unknown Unknown PM CDT 12:43 PM CDT Alma Mckeonlukasz WHEEL AND PINION INSPECTOR URINE Performing Organization Address City/State/ZIP Code Phon e Number [facility] [address] [facility] [place] [address] (ABNORMAL) UA W/ SEDIMENT EXAM REFLEXED PER CRITERIA (12/21/2021 12:43 PM CDT) [facility] Method Time Signature COLOR Ora (A) Yellow Color 12/21/2021 [place] 12:59 PM [facility] CLARITY Clear Clear [facility] SPECIFIC >=1.030 (A) 1.010, 12/21/2021 [place] GRAVITY,URINE 1.015, 12:59 PM MEDICAL 1.020, 1.025 [facility] PH,URINE 5.5 6.0, 7.0, 12/21/2021 [place] 8.0, 5.5, 12:59 PM MEDICAL 6.5, 7.5, [facility] 8.5 LABORATORY UROBILINOGEN, Normal Normal EU/dl 12/21/2021 [facility] QUALITATIVE 12:59 PM [facility] PROTEIN, Trace (A) Negative 12/21/2021 [facility] mg/dL 12:59 PM [facility] GLUCOSE, Negative Negative 12/21/2021 [facility] mg/dL 12:59 PM [facility] KETONES,URINE Trace (A) Negative 12/21/2021 [place] mg/dL 12:59 PM [facility] BILIRUBIN,URI Negative Negative 12/21/2021 [facility] NE 12:59 PM [facility] OCCULT Negative Negative 12/21/2021 [facility] BLOOD,URINE 12:59 PM [facility] NITRITE Negative Negative 12/21/2021 [facility] 12:59 PM [facility] LEUKOCYTE Negative Negative 12/21/2021 [facility] ESTERASE 12:59 PM [facility] Specimen Anatomical Collection Method Collection Time Receive d Time (Source) Location / / Volume Laterality Urine URINE SPECIMEN / Non-Blood / 12/21/2021 12:43 022 Unknown Unknown PM CDT 12:43 PM CDT Almaviridiana Lezama WHEEL AND PINION INSPECTOR URINE Performing Organization Address City/State/ZIP Code Phon e Number [facility] [address] [place] [address] from Last 3 Months Insurance Payer Benefit Plan Subscriber ID Effective Dates Phone Address Type / Group [employer] [facility] [id number] [facility] [employer] nt [address] [place] [phone] Care Teams Burr Bench Hand Relationship Specialty Start Date End Date Clinic, [facility] PCP - General 12/21/21 [address] [facility] [place] [address]
--- OUTSIDE RECORDS SUMMARY | 2022-03-08 08:16 | XMS_ITS | Encounter Summary ---
:1955 Author Organization [facility] Address [address] [place] [address] Care Team Providers Name Role Phone Unavailable Primary Care Provider Unavailable Encounter Details Date Type Department Care Team Description 01/07/2019 Orders Only Department of [facility] Clinical R esearch Exam Radiology, Jamal Acevedo M.D. (Primary Dx) [facility], in [place], [facility] [address] [place], [place] [address] [facility] [address] [place], [place] [phone] (Work) [phone] Social History Tobacco Use Types Packs/Day Years Used Date Smoking Tobacco: Unknown Sex Assigned at Date Recorded Not on file documented as of this encounter Plan of Treatment Not on filedocumented as of this encounter Visit Diagnoses Diagnosis Clinical Research Exam - Primary documented in this encounter
--- OUTSIDE RECORDS SUMMARY | 2022-03-08 08:16 | XMS_ITS | Encounter Summary ---
:1955 Author Organization [facility] Address [address] [place] [address] Care Team Providers Name Role Phone Unavailable Primary Care Provider Unavailable Encounter Details Date Type Department Care Team Description 08/09/2011 Hospital Encounter HX [facility] M.D. [address] [address], [address] [place] [address] (Wo rk) Social History Tobacco Use Types Packs/Day Years Used Date Smoking Tobacco: Never Assessed Sex Assigned at Date Recorded Not on file documented as of this encounter Medications at Time of Discharge Medication Sig Dispensed Refills Start Date End Date aspirin [address] tablet Take 81 mg by mouth 0 daily. documented as of this encounter Plan of Treatment Not on filedocumented as of this encounter Visit Diagnoses Not on filedocumented in this encounter
--- OUTSIDE RECORDS SUMMARY | 2022-03-08 08:16 | XMS_ITS | Encounter Summary ---
:1955 Author Organization [facility] rs Address [address] [place] [address] Support Name Relationship Address Phone ANGELINE DANIELLE Unavailable [address] [place] [address] ANGELINE DANIELLE Unavailable [address] [place] [address] MARGY HASSAN Unavailable [address] [facility] [phone] [place] [address] Insurance Providers: All historical and current Section Date Range: From patient's date of to the date document was created.This section includes the names of all active insurance providers for the patient. Insurance Type of Plan Start of End of Group Member Insurance Policy P atient's Provider Coverage Name Policy Policy Number ID Provider's Yoo's Relationship Coverage Coverage Telephone Name to Policy Number Yoo [facility] PREFERRED APOGE Dec 24, [id number] NAATZ,EUG PATIENT PROVIDER E 2009 4 [phone] ANTWON ORGANIZAT ENTER ION (PPO) PRISE S, PRIME PRESCRIPT BS Jun 12, [place] [id number] NAATZ,EUG P ATIENT THERAPEUTI ION N 2017 [facility] [id number] ANTWON CS [facility] PRIME PRESCRIPT RX Sep 24, [id number] NAATZ,EUG PATIENT THERAPEUTI ION PLAN 2010 [id number] ANTWON CS Selected Encounter This section includes the information on record at NH for the Encounter. Date/Time Encounter Type Encounter Description Reason Provider Source May 24, 2021 12:00 Outpatient Encounter EVENT (HISTORICAL) AM IHE Encounter Template Text not used by NH Plan of Treatment: Future Appointments (+ 6 months) and Future Tests (+/- 45 days) The Plan of Treatment section includes future care activities for the patient from all [place] treatmentfacilities. This section includes future appointments and future orders which are active, pending orscheduled.Future Appointments This section includes appointments that were scheduled to occur 6 months from the date of the Encounter, up to a maximum of 20 appointments. The data comes from all [place] treatment facilities. Appointment Date/Time Appointment Type Appointment Facili ty Name Aug 31, 2021 01:00 PM AMBULATORY - MEDICINE [facility] Immunizations: All administered on the encounter date This section contains immunizations associated to the Encounter. Immunization Series Date Issued Reaction Comments COVID-19 (MODERNA), MRNA, LNP-S, PF, 100 3 May 24, 2021 MCG/0.5ML DOSE OR 50 MCG/0.25ML DOSE
--- OUTSIDE RECORDS SUMMARY | 2022-03-08 08:16 | XMS_ITS | Encounter Summary ---
:1955 Author Organization [facility] of [facility] rs Address [address] [place] [address] Support Name Relationship Address Phone ANGELINE DANIELLE Unavailable [address] [place] [address] ANGELINE DANIELLE Unavailable [address] [place] [address] MARGY HASSAN Unavailable [address] [place] [address] Insurance Providers: All historical and current Section Date Range: From patient's date of to the date document was created.This section includes the names of all active insurance providers for the patient. Insurance Type of Plan Start of End of Group Member Insurance Policy P atient's Provider Coverage Name Policy Policy Number ID Provider's Yoo's Relationship Coverage Coverage Telephone Name to Policy Number Yoo [facility] PREFERRED APOGE Dec 24, [id number] NAATZ,EUG PATIENT PROVIDER E 2009 4 [phone] ANTWON ORGANIZAT ENTER ION (PPO) PRISE S, PRIME PRESCRIPT BS Jun 12, [place] [id number] NAATZ,EUG P ATIENT THERAPEUTI ION N 2017 [facility] [id number] ANTWON CS [facility] PRIME PRESCRIPT RX Sep 24, [id number] NAATZ,EUG PATIENT THERAPEUTI ION PLAN 2009 [id number] ANTWON CS Selected Encounter This section includes the information on record at [place] for the Encounter. Date/Time Encounter Type Encounter Description Reason Provider Source Dec 20, 2021 08:04 Outpatient Encounter PRIMARY CARE/MEDICINE AM IHE Encounter Template Text not used by [place] Plan of Treatment: Future Appointments (+ 6 months) and Future Tests (+/- 45 days) The Plan of Treatment section includes future care activities for the patient from all [facility]. This section includes future appointments and future orders which are active, pending orscheduled.Future Appointments This section includes appointments that were scheduled to occur 6 months from the date of the Encounter, up to a maximum of 20 appointments. The data comes from all [facility]. Appointment Date/Time Appointment Type Appointment Facili ty Name Dec 22, 2021 03:32 PM AMBULATORY - NONE [facility] Dec 23, 2021 11:09 AM AMBULATORY [facility] Dec 28, 2021 01:00 PM AMBULATORY - MEDICINE [facility] Mar 07, 2022 10:00 AM AMBULATORY - [facility] Mar 14, 2022 01:00 PM AMBULATORY - MEDICINE [facility] Active, Pending, and Scheduled Orders This section includes a listing of several types of active, pending, and scheduled orders, including clinic medications orders, diagnostic test orders, procedure orders and consult orders; where the start date of the order is 45 days before the date of the Encounter or 45 days after the date of the Encounter. The data comes from all [facility]. Test Date/Time Test Type Test Details Facility Name Dec 27, 2021 12:22 PM Consult Order COMMUNITY CARE-COLONOSCOPY [facility]NOSTIC Cons Medical Record Administrator's Choice Encounter Notes: All associated encounter notes This section contains the clinical notes associated to the Encounter. Date/Time Encounter Note(s) Provider Source Dec 20, 2021 08:04 AM REPORT OF CONTACT: YOUSUF BECERRA LOCAL TITLE: PATIENT CONTACT NOTE STANDARD TITLE: REPORT OF CONTACT DATE OF NOTE: DEC 20, 2021@08:04 ENTRY DATE: DEC 20, 2021@08:04:57 AUTHOR: YOUSUF BECERRA EXP COSIGNER: URGENCY: STATUS: COMPLETED PATIENT CONTACT NOTE Has ADDENDA Patient contact Name of [place]: FRANCINE MULLIGAN Name/Relationship of Contact if other than Veter an: Date & Time of Contact: Dec@08:05 Type of Contact: Telephone Reason for Contact: Mr. Mulligan stated he has had a pain on the left s alex of his belly wm /jeovany/ JOHANNA LANDA MSA [facility]INC Signed: 12/20/2021 08:06 Receipt Acknowledged By: 12/20/2021 15:08 /jeovany/ Nancy Johnson RN Nurse [facility] 12/20/2021 ADDENDUM STATUS: COMPLETED training facilitator note Length of call with : 5-10 minutes Triage per: Telephone Triage Protocols for Nurses, Edition 6 by Jocelyne King Problem: C/O abdominal pain Duration/Onset: A couple weeks ago Associated Symptoms: [place] stated he started to have pain in his ab domen around the area of his belly button a couple weeks ago. The pain has be en constant and he rated the pain a 5 out of 10 currently. He stated the ar ea is tender to touch and that his urine flow has weakened and he is havin g difficulty passing stool for a couple days. Has the practitioner evaluated this problem befo re? No Possible reasons the patient identified this pro blem is occurring: Unknown Additional History: Active problems - Computerized Problem List is t he source for the followin. Essential hypertension 2. Vertebral artery stenosis 3. Hyperlipidaemia 4. Lacunar infarction - 2019 5. H/O: surgery - abdominal wall hernia repair with mesh - mitral valve posterior annuloplasty band surg vicki about 9 years ago Treatments the has tried: OTC ibuprofen; moderately helpful. What is the patient goal for the call? Requesting advice on next steps. Recommendation based on full assessment: As jael has not had this issue evaluated prev iously and his PCP is currently booked out several weeks, senior technical writer advis ed to seek care at local for evaluation. Evaluation: agrees with plan. Additional Instructions to [place]: Ornamental Plasterer Helper provided location of nearest [place] ([facility] in [place], [place]) and advised to br ing along ID. Phone number can be reached if necessary : [phone] Patient calling with symptoms has been instructe d to call if symptoms worsen or seek emergency care if symptoms become sever/ life threatening. /jeovany/ Nancy Johnson RN Nurse [facility] Signed: 12/20/2021 15:14 12/21/2021 ADDENDUM STATUS: COMPLETED Ornamental Plasterer Helper received call from wilda paris stating that he went to Urgent Care today, was told they found an abscess, and want to ship him up to [place] right away. Ornamental Plasterer Helper advised to co ntact the Centralized Call Center ([phone]) to report the and [facility] admission. [place] verb alized understanding and agreement to plan. /jeovany/ Nancy Johnson, RN Nurse [facility] Signed: 12/21/2021 16:01
--- OUTSIDE RECORDS SUMMARY | 2022-03-08 08:16 | XMS_ITS | Continuity of Care Document ---
:1955 Author Organization [facility] Care Team Providers Name Role Phone [facility] Unavailable Unavailable Problems Combined list of problems from Department of Defense and Veterans [facility] facilities. It does not include entries that were removed or entered in error. Problem Status Onset Problem Type Date of Comments Source Date Resolution Essential Active Condition DYANA C hypertension ANY CBOC H/O: surgery Active Condition Sep 01, 2020 L YLE C Entered By: BAUDILIO CROW CBFRENCH Comment: abdominal wall hernia repair with mesh Sep 01, 2020 Entered By: BAUDILIO RENE Comment: mitral valve posterior annuloplasty band surgery about 9 years ago Hyperlipidaemia Active Condition DYANA C ANY CBOC Lacunar infarction Active Condition Sep 01, 2020 DYANA C Entered By: BAUDILIO CROW CBOC Comment: 2019 Vertebral artery Active Condition LYL E C stenosis ANY CBOC Diagnosis: Active Diagnosis DYANA C ICD-10-CM Z98.890 PE ARSON Other specified CBOC postprocedural stateswith Provider Comments: H/O: surgery ([facility] [id number]) Diagnosis: Active Diagnosis DYANA C ICD-10-CM Z23 [place] N Encounter for CBOC immunizationwith Provider Comments: Encounter for any immunization Diagnosis: Active Diagnosis DYANA C ICD-10-CM Z23 [place] N Encounter for CBOC immunizationwith Provider Comments: Encounter for Immunization Medications Combined list of outpatient medications from Department of Defense and Veterans Affairs facilities. Medications provided include 1) outpatient medications from the last 15 months, and 2) patient-reported medications. Medication Details Route Status Patient Prescription Prescription Last Ordering Order Source Instructions Expires Number Dispense Provider Date Date ASPIRIN TAKE ONE ORALLY ACTIVE ANJU 08/31/ LY LE C 81MG TAB,EC TABLET BAUDILIO 2020 ANURAG N BY MOUTH CBOC EVERY DAY ATENOLOL TAKE ONE ORALLY ACTIVE 01/25/2023 [id number] PECHOL T,E 01/24/ DYANA C 25MG TAB TABLET 2 MIL J 2021 AGARWAL BY MOUTH CBOC EVERY DAY ATENOLOL TAKE ONE ORALLY 09/02/2021 [id number] ANAM UGISHA 09/03/ DYANA C 25MG TAB TABLET 2 ,BAUDILIO2020 AGARWAL BY MOUTH CBOC EVERY DAY CLOPIDOGREL TAKE ONE ORALLY ACTIVE 01/25/2023 [id number] P ECHOLT,E 01/27/ DYANA C BISULFATE TABLET 2 MIL J 2021 AGARWAL 75MG TAB BY MOUTH CBOC EVERY DAY CLOPIDOGREL TAKE ONE ORALLY 09/08/2021 [id number] KAMUGISHA 09/08/ DYANA C BISULFATE TABLET 2 ,BAUDILIO2020 AGARWAL 75MG TAB BY MOUTH CBOC EVERY DAY LISINOPRIL TAKE ORALLY ACTIVE 01/25/2023 [id number] PECHOLT ,E 01/24/ DYANA C 40MG TAB ONE-HALF 2 MIL J 2021 AGARWAL TABLET CBOC BY MOUTH EVERY DAY LISINOPRIL TAKE ORALLY 09/02/2021 [id number] KAMUGI SHA 09/07/ DYANA C 40MG TAB ONE-HALF 2 ,BAUDILIO2020 AGARWAL TABLET CBOC BY MOUTH EVERY DAY Immunizations Combined list of available immunizations from the Department of Defense and Veterans Affairs facilities. Immunization Series Date Administered Site Reaction Lot CVX Drug St at Comments Source Given By Number Code Saw Maker ZOSTER 2 complet DYANA C RECOMBINANT 2021 ed PE ARSON CBOC COVID-19 3 complet [place] (MODERNA), 2020 ed MEGA S VA MRNA, LNP-S, H CS PF, 100 MCG/0.5ML DOSE OR 50 MCG/0.25ML DOSE ZOSTER 1 complet DYANA C RECOMBINANT 2020 ed PE ARSON CBOC INFLUENZA, complet Partne r:C [place] INJECTABLE, 2020 ed CN2.Admi n OLIS VA QUADRIVALENT, istere d HCS PRESERVATIVE by:-V [facility] [phone]). NDC:[phone].Ad dress:[address] ULT.MN.55 [id number] Dosage: ML 0.5 COVID-19 2 complet PFR; LY LE C (PFIZER), 2020 ed [id number]; PE ARSON MRNA, LNP-S, 02 CBOC PF, 30 1 MCG/0.3 ML DOSE COVID-19 1 complet PFR; LY LE C (PFIZER), 2020 ed [id number]; PE ARSON MRNA, LNP-S, 02 CBOC PF, 30 1 MCG/0.3 ML DOSE INFLUENZA, complet Partne r:C [place] INJECTABLE, 2019 ed CN2.Admi n [place] QUADRIVALENT, istere d HCS PRESERVATIVE by:-V [facility] [id number].([phone]). ND:[phone].Ad dress:[address] ULT.MN.55 [id number] Dosage: ML 0.5 INFLUENZA, complet [place] UNSPECIFIED 2019 ed OL IS MO FORMULATION HC S TDAP complet [place] 2020 ed OLIS [facility] Results Combined list of recent chemistry, hematology and other laboratory results from Department of Defense and Veterans Affairs, ranging from 15 months to all on record, depending upon the facility. Order Results Value Reference Date Interpretation Specimen Commen ts Source Name Range OCCULT HEMOGLOBIN Negative 09/16 Specimen Typ e: FECES DYANA C BLOOD FIT .GASTROINT No comment entered. ANY X1 SCREEN ESTINAL.LO Ordering P rovider: BAUDILIO RENE WER Report Released Date/Time: Sep 01, 2020 02:11 PM [PRESENCE] Reporting La b: [facility] IN STOOL [address] [facility] [address] BY Performing Lab: [facility] IMMUNOASSA [address] [facility] [address] Y --1ST SPECIMEN CBC LEUKOCYTES 5.86 4.0 - 11.0 09/08 Specimen T ype: BLOOD DYANA C [#/VOLUME] No comment en oneal. ANY IN BLOOD Ordering Provi amy: BAUDILIO RENE BY Report Released Date/Time: Sep 01, 2020 02:11 PM AUTOMATED Reporting Lab : [facility] COUNT [address] [facility] [address] Performing Lab: [facility] [address] [facility] [address] CBC ERYTHROCYT 4.64 4.6 - 6.2 09/08 Specimen Ty pe: BLOOD DYANA C ES /2020 No comment enter ed. AGARWAL [#/VOLUME] Ordering Pro vider: BAUDILIO RENE IN BLOOD Report Release d Date/Time: Sep 01, 2020 02:11 PM BY Reporting Lab: [facility] AUTOMATED [facility] [address] COUNT Performing Lab: [facility] [address] [facility] [address] CBC HEMOGLOBIN 15.3 13.5 - 09/08 Specimen Type : BLOOD DYANA C [MASS/VOLU 17.9 No comment en tered. AGARWAL ME] IN Ordering Provid er: BAUDILIO RENE BLOOD Report Released Date/Time: Sep 01, 2020 02:11 PM Reporting Lab: [facility] [place] [address] Performing Lab: [facility] [place] [address] CBC HEMATOCRIT 46.6 41 - 54 09/08 Specimen Type : BLOOD DYANA C [VOLUME /2020 No comment enter ed. AGARWAL FRACTION] Ordering Prov ider: BAUDILIO RENE OF BLOOD Report Release d Date/Time: Sep 01, 2020 02:11 PM BY Reporting Lab: [facility] AUTOMATED [facility] [address] COUNT Performing Lab: [facility] [place] [address] CBC MCV 100.4 80 - 100 09/08 H Specimen Type: BLOOD DYANA C [ENTITIC /2020 No comment cassius AGARWAL VOLUME] BY Ordering Pro vider: BAUDILIO RENE AUTOMATED Report Releas ed Date/Time: Sep 01, 2020 02:11 PM COUNT Reporting Lab: [facility] [address] [facility] [address] Performing Lab: [facility] [address] [facility] [address] CBC MCH 33.0 27 - 33 09/08 Specimen Type: B LOOD DYANA C [ENTITIC /2020 No comment cassius AGARWAL MASS] BY Ordering Provi amy: BAUDILIO RENE AUTOMATED Report Releas ed Date/Time: Sep 01, 2020 02:11 PM COUNT Reporting Lab: [facility] [place] [address] Performing Lab: [facility] HCS [place] [address] CBC MCHC 32.8 32.0 - 09/08 Specimen Type: B LOOD DYANA C [MASS/VOLU 37.5 /2020 No comment en oneal. ANY ME] BY Ordering Provid er: BAUDILIO RENE AUTOMATED Report Releas ed Date/Time: Sep 01, 2020 02:11 PM COUNT Reporting Lab: [facility] [address] [place] [facility] [address] Performing Lab: [facility] [place] [address] CBC PLATELETS 204 150 - 400 09/08 Specimen Typ e: BLOOD DYANA C [#/VOLUME] /2020 No comment en tered. AGARWAL IN BLOOD Ordering Provi amy: BAUDILIO RENE BY Report Released Date/Time: Sep 01, 2020 02:11 PM AUTOMATED Reporting Lab : [facility] COUNT [address] [place] [facility] [address] Performing Lab: [facility] [place] [address] CBC PLATELET 9.6 7.4 - 10.4 09/08 Specimen Typ e: BLOOD DYANA C MEAN /2020 No comment enter ed. ANY VOLUME Ordering Provid er: BAUDILIO RENE [ENTITIC Report Release d Date/Time: Sep 01, 2020 02:11 PM VOLUME] IN Reporting La b: [facility] BLOOD BY [address] [facility] [address] AUTOMATED Performing La b: [facility] COUNT [address] [facility] [address] CBC ERYTHROCYT 12.2 11.5 - 09/08 Specimen Type : BLOOD DYANA C E 14.5 /2020 No comment enter ed. ANY DISTRIBUTI Ordering Pro vider: BAUDILIO RENE ON WIDTH Report Release d Date/Time: Sep 01, 2020 02:11 PM [RATIO] BY Reporting La b: [facility] AUTOMATED [address] [facility] [address] COUNT Performing Lab: [facility] [address] [facility] [address] COMPREHEN CREATININE 1.1 0.7 - 1.2 09/08 Specimen Type: PLASMA DYANA C SIVE [MASS/VOLU /2020 No comment en tered. AGARWAL METABOLIC ME] IN Ordering Prov ider: BAUDILIO RENE CBOC PANEL+MG SERUM OR Report Releas ed Date/Time: Sep 01, 2020 02:11 PM PLASMA Reporting Lab: [facility] [place] [address] Performing Lab: [facility] [address] [facility] [address] COMPREHEN UREA 13 8 - 26 09/08 Specimen Type: PLASMA DYANA C SIVE NITROGEN /2020 No comment cassius AGARWAL METABOLIC [MASS/VOLU Ordering P rovider: NATASHA RENEA CBOC PANEL+MG ME] IN Report Release d Date/Time: Sep 01, 2020 02:11 PM SERUM OR Reporting Lab: [facility] PLASMA [address] [facility] [address] Performing Lab: [facility] [address] [facility] [address] COMPREHEN GLUCOSE 89 70 - 105 09/08 Specimen Type : PLASMA DYANA C SIVE [MASS/VOLU /2020 No comment en tered. AGARWAL METABOLIC ME] IN Ordering Prov ider: BAUDILIO RENE CBOC PANEL+MG SERUM OR Report Releas ed Date/Time: Sep 01, 2020 02:11 PM PLASMA Reporting Lab: [facility] [address] [facility] [address] Performing Lab: [facility] [address] [facility] [address] COMPREHEN SODIUM 138 136 - 145 09/08 Specimen Typ e: PLASMA DYANA C SIVE [MOLES/VOL No comment en tered. AGARWAL METABOLIC UME] IN Ordering Prov ider: KAMTERESAANATASHAA CBOC PANEL+MG SERUM OR Report Releas ed Date/Time: Sep 01, 2020 02:11 PM PLASMA Reporting Lab: [facility] [address] [facility] [address] Performing Lab: [facility] [address] [facility] [address] COMPREHEN POTASSIUM 4.3 3.5 - 5.1 09/08 Specimen T ype: PLASMA DYANA C SIVE [MOLES/VOL No comment en tered. AGARWAL METABOLIC UME] IN Ordering Prov ider: KAMTERESAA,BAUDILIO CBOC PANEL+MG SERUM OR Report Releas ed Date/Time: Sep 01, 2020 02:11 PM PLASMA Reporting Lab: [facility] [address] [facility] [address] Performing Lab: [facility] [address] [facility] [address] COMPREHEN CHLORIDE 104 98 - 107 09/08 Specimen Typ e: PLASMA DYANA C SIVE [MOLES/VOL /2020 No comment en tered. ANY METABOLIC UME] IN Ordering Prov ider: BAUDILIO RENE CBOC PANEL+MG SERUM OR Report Releas ed Date/Time: Sep 01, 2020 02:11 PM PLASMA Reporting Lab: [facility] [address] [facility] [address] Performing Lab: [facility] [address] [facility] [address] COMPREHEN CARBON 27 22 - 29 09/08 Specimen Type: PLASMA DYANA C SIVE DIOXIDE, /2020 No comment ente red. ANY METABOLIC TOTAL Ordering Prov ider: BAUDILIO RENE CBOC PANEL+MG [MOLES/VOL Report Rele ased Date/Time: Sep 01, 2020 02:11 PM UME] IN Reporting Lab: [facility] SERUM OR [address] [facility] [facility] [address] PLASMA Performing Lab: [facility] [address] [facility] [address] COMPREHEN CALCIUM 9.0 8.4 - 10.2 09/08 Specimen Ty pe: PLASMA DYANA C SIVE [MASS/VOLU /2020 No comment en tered. ANY METABOLIC ME] IN Ordering Prov ider: BAUDILIO RENE CBOC PANEL+MG SERUM OR Report Releas ed Date/Time: Sep 01, 2020 02:11 PM PLASMA Reporting Lab: [facility] [address] [facility] [address] Performing Lab: [facility] [address] [facility] [address] COMPREHEN PROTEIN 7.4 6.0 - 8.3 09/08 Specimen Typ e: PLASMA DYANA C SIVE [MASS/VOLU /2020 No comment en tered. ANY METABOLIC ME] IN Ordering Prov ider: BAUDILIO RENE CBOC PANEL+MG SERUM OR Report Releas ed Date/Time: Sep 01, 2020 02:11 PM PLASMA Reporting Lab: [facility] [address] [facility] [address] Performing Lab: [facility] [address] [facility] [address] COMPREHEN ALBUMIN 4.3 3.5 - 5.2 09/08 Specimen Typ e: PLASMA DYANA C SIVE [MASS/VOLU /2020 No comment en teredin. ANY METABOLIC ME] IN Ordering Prov ider: BAUDILIO RENE CBOC PANEL+MG SERUM OR Report Releas ed Date/Time: Sep 01, 2020 02:11 PM PLASMA Reporting Lab: [facility] [address] [facility] [address] Performing Lab: [facility] [address] [facility] [address] COMPREHEN BILIRUBIN. 0.7 0.2 - 1.2 09/08 Specimen Type: PLASMA DYANA C SIVE TOTAL /2020 No comment enter ed. ANY METABOLIC [MASS/VOLU Ordering P rovider: BAUDILIO RENE CBOC PANEL+MG ME] IN Report Release d Date/Time: Sep 01, 2020 02:11 PM SERUM OR Reporting Lab: [facility] PLASMA [address] [facility] [address] Performing Lab: [facility] [address] [facility] [address] COMPREHEN MAGNESIUM 2.2 1.6 - 2.6 09/08 Specimen T ype: PLASMA DYANA C SIVE [MASS/VOLU /2020 No comment en tered. AGARWAL METABOLIC ME] IN Ordering Prov ider: BAUDILIO RENE CBOC PANEL+MG SERUM OR Report Releas ed Date/Time: Sep 01, 2020 02:11 PM PLASMA Reporting Lab: [facility] [address] [facility] [address] Performing Lab: [facility] [address] [facility] [address] COMPREHEN ANION GAP 7 5 - 15 09/08 Specimen Typ e: PLASMA DYANA C SIVE IN SERUM /2020 No comment ente red. ANY METABOLIC OR PLASMA Ordering Pr ovider: BAUDILIO RENE CBOC PANEL+MG Report Release d Date/Time: Sep 01, 2020 02:11 PM Reporting Lab: [facility] [address] [facility] [address] Performing Lab: [facility] [address] [facility] [address] COMPREHEN ALKALINE 57 40 - 150 09/08 Specimen Typ e: PLASMA DYANA C SIVE PHOSPHATAS /2020 No comment en tered. ANY METABOLIC E Ordering Prov ider: BAUDILIO RENE CBOC PANEL+MG [ENZYMATIC Report Rele ased Date/Time: Sep 01, 2020 02:11 PM ACTIVITY/V Reporting La b: [facility] OLUME] IN ONE [facility] [address] [facility] [address] SERUM OR Performing Lab : [facility] PLASMA [address] [facility] [address] COMPREHEN ALANINE 18 <55 - 55 09/08 Specimen Type : PLASMA DYANA C SIVE AMINOTRANS /2020 No comment en tered. ANY METABOLIC FERASE Ordering Prov ider: BAUDILIO RENE CBOC PANEL+MG [ENZYMATIC Report Rele ased Date/Time: Sep 01, 2020 02:11 PM ACTIVITY/V Reporting La b: [facility] OLUME] IN [facility] [address] SERUM OR Performing Lab : [facility] PLASMA [address] [facility] [address] COMPREHEN ASPARTATE 19 5 - 34 09/08 Specimen Typ e: PLASMA DYANA C SIVE AMINOTRANS /2020 No comment en tered. ANY METABOLIC FERASE Ordering Prov ider: BAUDILIO RENE CBOC PANEL+MG [ENZYMATIC Report Rele ased Date/Time: Sep 01, 2020 02:11 PM ACTIVITY/V Reporting La b: [facility] OLUME] IN [facility] [address] SERUM OR Performing Lab : [facility] PLASMA [address] [facility] [address] COMPREHEN GLOMERULA 68 60 09/08 Specimen Ty pe: PLASMA DYANA C SIVE R No comment enter ed. ANY METABOLIC FILTRATION Ordering P rovider: BAUDILIO RENE CBOC PANEL+MG RATE/1.73 Report Relea sed Date/Time: Sep 01, 2020 02:11 PM SQ Reporting Lab: [facility] M.PREDICTE [facility] [address] D [VOLUME Performing La b: [facility] RATE/AREA] [facility] [address] IN SERUM, PLASMA OR BLOOD BY CREATININE -BASED FORMULA (CKD-EPI) HEMOGLOBI HEMOGLOBIN 5.4 4.0 - 6.0 09/08 Specimen Type: BLOOD DYANA C N A1C A1C/HEMOGL /2020 No comment en tered. ANY OBIN.TOTAL Ordering Pro vider: BAUDILIO RENE CBFRENCH IN BLOOD Report Release d Date/Time: Sep 01, 2020 02:11 PM Reporting Lab: [facility] [place] [address] Performing Lab: [facility] [address] [facility] [address] LIPID CHOLESTERO 198 <199 - 199 09/08 Specimen T ype: PLASMA DYANA C PANEL,FAS L /2020 No comment ent ered. ANY TING [MASS/VOLU Ordering Pro vider: BAUDILIO RENE CBFRENCH ME] IN Report Released Date/Time: Sep 01, 2020 02:11 PM SERUM OR Reporting Lab: [facility] PLASMA [address] [facility] [address] Performing Lab: [facility] [address] [facility] [address] LIPID TRIGLYCERI 112 <149 - 149 09/08 Specimen T ype: PLASMA DYANA C PANEL,FAS DE /2020 No comment ent ered. ANY CORREAG [MASS/VOLU Ordering Pro vider: KAMBAUDILIO ESCALANTE CBFRENCH ME] IN Report Released Date/Time: Sep 01, 2020 02:11 PM SERUM OR Reporting Lab: [facility] PLASMA [address] [facility] [address] Performing Lab: [facility] [address] [facility] [address] LIPID CHOLESTERO 42 40 09/08 Specimen Type : PLASMA DYANA C PANEL,FAS L IN HDL /2020 No comment en tered. ANY TING [MASS/VOLU Ordering Pro vider: BAUDILIO RENE CBFRENCH ME] IN Report Released Date/Time: Sep 01, 2020 02:11 PM SERUM OR Reporting Lab: [facility] PLASMA [address] [facility] [address] Performing Lab: [facility] [address] [facility] [address] LIPID CHOLESTERO 134 <99 - 99 09/08 H Specimen Typ e: PLASMA DYANA C PANEL,FAS L IN LDL /2020 No comment en tered. ANY TING [MASS/VOLU Ordering Pro vider: KAMBAUDILIO ESCALANTE CBFRENCH ME] IN Report Released Date/Time: Sep 01, 2020 02:11 PM SERUM OR Reporting Lab: [facility] PLASMA BY [address] [facility] [address] CALCULATIO Performing L ab: [facility] [place] [address] LIPID CHOLESTERO 22 <29 - 29 09/08 Specimen Typ e: PLASMA DYANA C PANEL,FAS L IN VLDL No comment e ntered. ANY TING [MASS/VOLU Ordering Pro vider: BAUDILIO RENE ME] IN Report Released Date/Time: Sep 01, 2020 02:11 PM SERUM OR Reporting Lab: [facility] PLASMA BY [address] [facility] [address] CALCULATIO Performing L ab: [facility] [place] [address] LIPID CHOLESTERO 156 <129 - 129 09/08 H Specimen T ype: PLASMA DYANA C PANEL,FAS L NON HDL /2020 No comment e ntered. ANY TING [MASS/VOLU Ordering Pro vider: BAUDILIO RENE SD] IN Report Released Date/Time: Sep 01, 2020 02:11 PM SERUM OR Reporting Lab: [facility] PLASMA [place] [address] Performing Lab: [facility] [place] [address] PSA PROSTATE 3.58 <3.99 - 09/08 Specimen Type: SERUM DYANA C SPECIFIC 3. No comment dilciae red. AGARWAL AG Ordering Provid er: BAUDILIO RENE [MASS/VOLU Report Relea sed Date/Time: Sep 01, 2020 02:11 PM ME] IN Reporting Lab: [facility] SERUM OR [address] [facility] [address] PLASMA Performing Lab: [facility] [address] [facility] [address] Vital Signs Combined list of inpatient and outpatient Vital Signs from Department of Defense and Veterans Affairs, ranging from 12 months to all on record, depending upon the facility. Vital Sign Value Date Comments Source SYSTOLIC BLOOD PRESSURE 126 08/31/2021 13:14:28 DYANA FLORES DIASTOLIC BLOOD PRESSURE 80 08/31/2021 13:14:28 DYANA FLORES PULSE OXIMETRY 98% 08/31/2021 13:14:28 DYANA C [facility] WEIGHT 158 08/31/2021 13:14:28 [facility] BMI 26kg/m2 08/31/2021 13:14:28 [facility] PAIN 0 08/31/2021 13:14:28 [facility] HEIGHT 65.25 08/31/2021 13:14:28 [facility] TEMPERATURE 97.8 08/31/2021 13:14:28 [facility] PULSE 60 08/31/2021 13:14:28 [facility] RESPIRATION 20 08/31/2021 13:14:28 [facility]NA [facility] Encounters Combined list of: 1) Encounters from Department of Veterans Affairs facilities going back up to the last 18 months. 2) Encounters from the Department of Defense facilities going back up to 280 months. Location Location Encounter Encounter Reason Attending ADM [place] Stat us Disposition Source Details Type Number For Provider Date Date Visit Outpatient 09/07 [facility] Encounter [id number] [facility] ADM 60001-3 Diagnos JOSHUA,OWEN 09/26 LY LE C SARSCOV2 [id number] is: FLORENTINO PEARSO N 30MCG/0.3M 14 ICD-10- CBOC L 1ST CM Z23 Encount er for immuniz ation<b r/>with Provide r Comment s: Encount er for Immuniz ation ADM 96309-2 Diagnos RYLAN,Qian 10/17 LY LE C SARSCOV2 [id number] is: WICHO K PEAR SON 30MCG/0.3M 22 ICD-10- CBOC L 2ND CM Z23 Encount er for immuniz ation<b r/>with Provide r Comment s: Encount er for Immuniz ation IMMUNIZATI 89172-661 Diagnos BERTRAM SILVEIRA 04/14 [facility] C ON ADMIN [id number] is: JOSEPHINE PEARSO N 55 ICD-10- CBOC CM Z23 Encount er for immuniz ation<b r/>with Provide r Comment s: Encount er for any immuniz ation Outpatient 28539-3.61 05/24 [place] Encounter [id number] /2020 [facility] OFFICE O/P 49975-5.61 Diagnos CORNEL,R 08/31 DYANA Gee EST LOW [id number] is: CALIN A /2021 MIAH SON 20-29 MIN 33 ICD-10- II CBOC CM Z98.890 Other specifi ed postpro cedural states< br/>wit h Provide r Comment s: H/O: surgery (SCT [id number]) Outpatient 99598-8.61 07/ [place] Encounter [id number] /2021 [facility] Outpatient 67494-2.61 SA JASMEET 12/22 [place] Encounter [id number] RA R /2021 [facility] Outpatient 62966-7.67 SALVADOR SHANNON 12/23 [place] Encounter [id number] JEFF Ochoa RN /2021 [facility] Outpatient 07825-7.61 KELLY ARNOLD 12/23 [place] Encounter [id number] ISTEN L /2021 [facility] Outpatient 52487-1.61 07 [place] Encounter [id number] /2021 [facility] Outpatient 46939-6.61 01/10 [place] Encounter [id number] /2021 [facility] Outpatient 99810-5.61 08 [place] Encounter [id number] /2021 [facility] Social History Combined list of available smoking, tobacco, and other social history [facility] Social History Type Response Date Comment Source Tobacco smoking VA-TOBACCO FORMER USER 08/31/2021 [facility] status NHIS History of tobacco MO-TOBACCO QUIT 5 TO < 08/31/2021 [facility] use 15 YRS History of tobacco VA-TOBACCO FORMER USER 09/01/2020 [facility] use Plan of Care List of future care activities from Department of [facility] Affairs facilities. Additional future care activities may be listed in the Assessment and Plan section. Date/Time Care Activity Care Activity Detail Facility 03/07/2022 AMBULATORY - NONE AMBULATORY - NONE [facility]
--- OUTSIDE RECORDS SUMMARY | 2022-03-08 08:16 | XMS_ITS | Encounter Summary ---
:1955 Author Organization [facility] Address [address] [place] [address] Care Team Providers Name Role Phone Unavailable Primary Care Provider Unavailable Reason for Visit MRI/CAT/PET Scan (Routine) - Canceled Specialty Diagnoses / Procedures Referred By Contact Refer red To Contact Radiology Diagnoses Clinical Research Exam Grayson Javier M.D. [facility] Procedures CT Cardiac Angiogram Structure Morphology with IV Contrast VT CTA HRT CORONARY W CNTRST HC CTA HRT CORONARY W CNTRST [address] [place] [phone] Referral ID Status Reason Start Date Expiration Date Visits V isits Requested Authorized [id number] Canceled 11/20/2018 11/20/2019 1 1 Encounter Details Date Type Department Care Team Description 12/31/2018 Hospital Encounter Department of Darren Javier (Patient: Radiology, Jamal Acevedo M.D. Request) [facility], in [address] [place] [address] [place] [id number] [place], [place] [phone] (Work) [phone] Social History Tobacco Use Types Packs/Day Years [...]
--- OUTSIDE RECORDS SUMMARY | 2022-03-08 08:16 | XMS_ITS | Encounter Summary ---
:1955 Author Organization [facility] Address [address] [place] [address] Care Team Providers Name Role Phone Unavailable Primary Care Provider Unavailable Encounter Details Date Type Department Care Team Description 07/18/2011 Hospital Encounter HX RST [facility] EXERCISE LAB Qian Bourne M.D. 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 CV STRESS PROCEDURES Performing Organization Address City/State/ZIP Code Phon e Number HX BALLINGER CONVERSION documented in this encounter Visit Diagnoses Not on filedocumented in this encounter
--- OUTSIDE RECORDS SUMMARY | 2022-03-08 08:16 | XMS_ITS | Encounter Summary ---
:1955 Author Organization [facility] Address [address] [place] [address] Care Team Providers Name Role Phone Unavailable Primary Care Provider Unavailable Reason for Visit Reason Comments Numbness Encounter Details Date Type Department Care Team Description 05/25/2018 Emergency [facility] ED Weakness General (Primary Dx ); [address] [place] [address] Social History Tobacco Use Types Packs/Day Years [...] encounter Procedures Procedure Name Priority Date/Time Associated Comments Diagnosis CT HEAD NECK RAD - Semiurgent 05/25/2018 11:40 Numbness Results for this ANGIOGRAM WITH IV (Fast; most ED AM [employer] TR[employer] MECH[employer]IC procedur e are in CONTRAST patients; some the results inpatients) section. CT HEAD WITHOUT RAD - Semiurgent 05/25/2018 9:19 Weakness General R esults for this IV CONTRAST (Fast; most ED AM [employer] TR[employer] MECH[employer]IC procedure are in patients; some the results inpatients) section. documented in this encounter Results CT Head Neck Angiogram with IV Contrast (05/25/2018 11:40 AM DIESEL TRUCK MECHANIC) Anatomical Region Laterality Modality Head and Neck, Neuroradiology RST LOS, Neuroradiology N/A Computed Tomography ARZ LOS, Neuroradiology FLA LOS Specimen (Source) Anatomical Collection Method Collection Time Re ceived Time Location / / Volume Laterality 05/25/2018 11:53 AM [employer] TR[employer] MECH[employer]IC Impressions 05/25/2018 12:01 PM [employer] TR[employer] MECH[employer]IC IMPRESSION: 1. 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 2. No evidence of hemodynamically signif icant stenosis or dissection of the right carotid artery or left carotid art vicki. Narrative 05/25/2018 12:01 PM [employer] TR[employer] MECHANIC EXAM: CT HEAD NECK ANGIOGRAM WITH IV CONTRAST 3D/MIPS: 3D Post-Processing performed on a dependent workstation. COMPARISON: Unenhanced CT of the head FINDINGS: Right carotid system: Mild noncalcified plaque at the right carotid bulb. No evidence of hemodynamically significant stenosis. Negative for dissection. Left carotid system: Mild calcified and noncalcified plaque at the left carotid bulb without evidence of hemodynamically significant stenosis. Negative for dissection. Vertebral arteries: Probable high-grade stenosis at the origin of the left vertebral artery (series 10, image 39 an d series 6, image 172). Patent right vertebral artery. The right vertebral ar edouard is dominant. The basilar artery is patent. Aortic arch: Standard configuration of t he aortic arch. Intracranial: origin of the right posterior cerebral artery. No evidence of intracranial aneurysm. No evidence of high-grade stenosis or occlusion of the proximal branches of the [place] s. Nonvascular findings: No acute findings. Measurement of a carotid stenosis, if pr esent, is based on length parameters that compare the residual internal carot id luminal diameter with that of the normal distal ICA in accordance with [facility] [place] Symptomatic Carotid Endarterectomy Trial (NASCET). Procedure Note Lucian Anderson M.D. - 05/25/2018For matting of this note might be different from the original. EXAM: CT HEAD NECK ANGIOGRAM WITH IV CON TRAST 3D/MIPS: 3D Post-Processing performed on a dependent workstation. COMPARISON: Unenhanced CT of the head FINDINGS: Right carotid system: Mild noncalcified plaque at the right carotid bulb. No evidence of hemodynamically significant stenosis. Negative for dissection. Left carotid system: Mild calcified and noncalcified plaque at the left carotid bulb without evidence of hemodynamically significant stenosis. Negative for dissection. Vertebral arteries: Probable high-grade stenosis at the origin of the left vertebral artery (series 10, image 39 an d series 6, image 172). Patent right vertebral artery. The right vertebral ar edouard is dominant. The basilar artery is patent. Aortic arch: Standard configuration of t he aortic arch. Intracranial: origin of the right posterior cerebral artery. No evidence of intracranial aneurysm. No evidence of high-grade stenosis or occlusion of the proximal branches of the [place] s. Nonvascular findings: No acute findings. Measurement of a carotid stenosis, if pr esent, is based on length parameters that compare the residual internal carot id luminal diameter with that of the normal distal ICA in accordance with [facility] [place] Symptomatic Carotid Endarterectomy Trial (NASCET). IMPRESSION: 1. 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 2. No evidence of hemodynamically signif icant stenosis or dissection of the right carotid artery or left carotid art vicki. Fan Cutler M.D. 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 Narrative 05/25/2018 9:31 AM DIESEL TRUCK MECHANIC EXAM: CT HEAD WITHOUT IV CONTRAST COMPARISON: None FINDINGS: Age-indeterminate lacunar infa rcts bilateral anterior limb internal capsule. ??Mild generalized atrophy. ??N o acute intracranial hemorrhage, mass, midline shift or hydrocephalus. ??Scatte red vascular calcifications. ??Visible paranasal sinuses and orbits are unremar kable. Semi-urgent result reported to FAN CUTLER on 05/25/2018 9:31 AM. Procedure Note Jasper Yo M.D. - 05/25/2018Formatti ng of this note might be different from the original. EXAM: CT HEAD WITHOUT IV CONTRAST COMPARISON: None FINDINGS: Age-indeterminate lacunar infa rcts bilateral anterior limb internal capsule. Mild generalized atrophy. No ac monica intracranial hemorrhage, mass, midline shift or hydrocephalus. Scattere d vascular calcifications. Visible paranasal sinuses and orbits are unremar kable. Semi-urgent result reported to FAN CUTLER on 05/25/2018 9:31 AM. 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 Fan Cutler M.D. IMG CT PROCEDURES documented in this encounter Visit Diagnoses Diagnosis Weakness General - Primary Numbness documented in this encounter Administered Medications Inactive Administered Medications - up to 3 most recent administrations Medication Order MAR Action Action Date Dose Rate Site iohexol 350 mg iodine/mL Given 05/25/2018 11:09 AM 100 mL Right Antecubital solution 100 mL [employer]CH[employer]IC (OMNIPAQUE) 100 mL, intravenous, Once in imaging, contrast, Starting on Mon05/25/18 at 1143, For 1 dose NaCl 0.9 % bolus 90 mL New Bag 05/25/2018 11:09 AM [employer]EL TR[employer] MECHANIC 90 mL Righ t Antecubital 90 mL, intravenous, Once, On Mon05/25/18 at 1200, For 1 dose sodium chloride 0.9 % Given 05/25/2018 11:09 AM D[employer]EL TR[employer] MECHANIC 10 mL Right Antecubital injection 10 mL 10 mL, intravenous, As needed, line care, Starting on Mon05/25/18 at 1143 documented in this encounter Active and Recently Administered Medications Times are shown in [employer]CH[employer]IC. Scheduled Medication Order 05/23/2018 05/24/2018 05/25/2018 NaCl 0.9 % bolus 90 mL (COMPLETED) 1109 (New Bag - Provider: Bryan JacobsTGodwin(R)) 90 mL, intravenous, Once, Mon05/25/18 at 1200, For 1 dose PRN Medication Order 05/23/2018 05/24/2018 05/25/2018 iohexol 350 mg iodine/mL solution 100 mL (OMNIPAQUE) (COMPLETED) 1109 (Given - Provider: Bryan JacobsTGodwin(R)) 100 mL, intravenous, Once in imaging, co ntrast, Starting Mon05/25/18 at 1143, For 1 dose sodium chloride 0.9 % injection 10 mL (CANCELED) 1109 (Given - Provider: Bryan JacobsTGodwin(R)) 10 mL, intravenous, As needed, line care, Starting Mon05/25/18 at 1143 documented in this encounter
--- OUTSIDE RECORDS SUMMARY | 2022-03-08 08:16 | XMS_ITS | Encounter Summary ---
:1955 Author Organization [facility] Address [address] [place] [address] Care Team Providers Name Role Phone Unavailable Primary Care Provider Unavailable Encounter Details Date Type Department Care Team Description 09/14/2011 Hospital Encounter HX NO MAPPING Social History Tobacco Use Types Packs/Day Years [...]
--- OUTSIDE RECORDS SUMMARY | 2022-03-08 08:16 | XMS_ITS | Encounter Summary ---
:1955 Author Organization [facility] Address [address] [place] [address] Care Team Providers Name Role Phone Unavailable Primary Care Provider Unavailable Encounter Details Date Type Department Care Team Description 01/02/2019 Orders Only Department of Osei Perez, Clinical R esearch Exam Radiology, Koloa Jeri (Primary Dx) [facility], in [address] [place] [address] [place] [phone] [place], [place] [phone] (Work) [phone] Social History Tobacco Use Types Packs/Day Years Used Date Smoking Tobacco: Unknown Sex Assigned at Date Recorded Not on file documented as of this encounter Plan of Treatment Not on filedocumented as of this encounter Visit Diagnoses Diagnosis Clinical Research Exam - Primary documented in this encounter
--- OUTSIDE RECORDS SUMMARY | 2022-03-08 08:16 | XMS_ITS | Encounter Summary ---
:1955 Author Organization [facility] Address [address] [place] [address] Care Team Providers Name Role Phone Unavailable Primary Care Provider Unavailable Encounter Details Date Type Department Care Team Description 08/10/2011 - 08/13/2011 Hospital Encounter HX RST BERTRAM ABDI 5C Social History Tobacco Use Types Packs/Day Years Used Date Smoking Tobacco: Never Assessed Sex Assigned at Date Recorded Not on file documented as of this encounter Last Filed Vital Signs Vital Sign Reading Time Taken Comments Blood Pressure 131/76 08/13/2011 10:30 NIBP - Value fr om AM TETRYL WRINGER OPERATOR [employer]. Pulse 72 08/11/2011 7:45 AM Value from Ch [employer]. TETRYL WRINGER OPERATOR Temperature - - Respiratory Rate 16 08/13/2011 5:00 AM Value from C [employer]. TETRYL WRINGER OPERATOR Oxygen Saturation - - Inhaled Oxygen - - Concentration Weight 69.5 kg (153 lb 3.5 08/13/2011 5:00 AM Value fro m [employer]. oz) TETRYL WRINGER OPERATOR Height 163.8 cm (5' 4.49) 08/10/2011 7:30 AM TETRYL WRINGER OPERATOR Body Mass Index 25.9 08/10/2011 9:06 AM TETRYL WRINGER OPERATOR documented in this encounter Medications at Time of Discharge Medication Sig Dispensed Refills Start Date End Date aspirin [address] tablet Take 81 mg by mouth 0 daily. documented as of this encounter Plan of Treatment Not on filedocumented as of this encounter Procedures Procedure Name Priority Date/Time Associated Comments Diagnosis DX CHEST AP OR PA AND Routine 08/13/2011 8:41 AM Results for this LATERAL 2 VIEWS TETRYL WRINGER OPERATOR procedure ar e in the results section. ELECTROLYTE (CHEM 4) Routine 08/13/2011 4:49 AM R esults for this PANEL, S/P TETRYL WRINGER OPERATOR procedure are i n the results section. PROTHROMBIN TIME (PT), Routine 08/13/2011 4:49 AM Results for this P TETRYL WRINGER OPERATOR procedure are i n the results section. CBC WITHOUT Routine 08/13/2011 4:49 AM Results f or this DIFFERENTIAL, B TETRYL WRINGER OPERATOR procedure ar e in the results section. MAGNESIUM, S Routine 08/13/2011 4:49 AM Results f or this TETRYL WRINGER OPERATOR procedure are i n the results section. ELECTROLYTE (CHEM 4) Routine 08/12/2011 5:19 AM R esults for this PANEL, S/P TETRYL WRINGER OPERATOR procedure are i n the results section. PROTHROMBIN TIME (PT), Routine 08/12/2011 5:19 AM Results for this P TETRYL WRINGER OPERATOR procedure are i n the results section. CBC WITHOUT Routine 08/12/2011 5:19 AM Results f or this DIFFERENTIAL, B TETRYL WRINGER OPERATOR procedure ar e in the results section. DX CHEST AP OR PA AND Routine 08/11/2011 5:46 PM Results for this LATERAL 2 VIEWS TETRYL WRINGER OPERATOR procedure ar e in the results section. ABG W/COOX Routine 08/11/2011 5:54 AM Results f or this TETRYL WRINGER OPERATOR procedure are i n the results section. ELECTROLYTE (CHEM 4) Routine 08/11/2011 4:11 AM R esults for this PANEL, S/P TETRYL WRINGER OPERATOR procedure are i n the results section. ACTIVATED PARTIAL Routine 08/11/2011 4:11 AM Resu lts for this THROMBOPLASTIN TIME TETRYL WRINGER OPERATOR procedur e are in (APTT), P the results section. PROTHROMBIN TIME (PT), Routine 08/11/2011 4:11 AM Results for this P TETRYL WRINGER OPERATOR procedure are i n the results section. CBC WITHOUT Routine 08/11/2011 4:11 AM Results f or this DIFFERENTIAL, B TETRYL WRINGER OPERATOR procedure ar e in the results section. MAGNESIUM, S Routine 08/11/2011 4:11 AM Results f or this TETRYL WRINGER OPERATOR procedure are i n the results section. ABG W/COOX Routine 08/10/2011 6:52 PM Results f or this TETRYL WRINGER OPERATOR procedure are i n the results section. POTASSIUM, B Routine 08/10/2011 6:52 PM Results f or this TETRYL WRINGER OPERATOR procedure are i n the results section. ELECTROLYTE (CHEM 4) Routine 08/10/2011 3:26 PM R esults for this PANEL, S/P TETRYL WRINGER OPERATOR procedure are i n the results section. ABG W/COOX Routine 08/10/2011 3:26 PM Results f or this TETRYL WRINGER OPERATOR procedure are i n the results section. GLUCOSE POCT, B Routine 08/10/2011 3:26 PM Result s for this TETRYL WRINGER OPERATOR procedure are i n the results section. THROMBOELASTOGRAPH, Routine 08/10/2011 3:26 PM Re sults for this KAOLIN, B TETRYL WRINGER OPERATOR procedure are i n the results section. ACTIVATED PARTIAL Routine 08/10/2011 3:26 PM Resu lts for this THROMBOPLASTIN TIME TETRYL WRINGER OPERATOR procedur e are in (APTT), P the results section. PROTHROMBIN TIME (PT), Routine 08/10/2011 3:26 PM Results for this P TETRYL WRINGER OPERATOR procedure are i n the results section. FIBRINOGEN, P Routine 08/10/2011 3:26 PM Results for this TETRYL WRINGER OPERATOR procedure are i n the results section. CBC WITHOUT Routine 08/10/2011 3:26 PM Results f or this DIFFERENTIAL, B TETRYL WRINGER OPERATOR procedure ar e in the results section. MAGNESIUM, S Routine 08/10/2011 3:26 PM Results f or this TETRYL WRINGER OPERATOR procedure are i n the results section. CALCIUM, IONIZED, S/B Routine 08/10/2011 3:26 PM Results for this TETRYL WRINGER OPERATOR procedure are i n the results section. ACT, POCT, B Routine 08/10/2011 3:25 PM Results f or this TETRYL WRINGER OPERATOR procedure are i n the results section. DX CHEST 1 VIEW Routine 08/10/2011 2:56 PM Result s for this TETRYL WRINGER OPERATOR procedure are i n the results section. HEMOGLOBIN (HGB), POCT, Routine 08/10/2011 2:12 PM Results for this B TETRYL WRINGER OPERATOR procedure are i n the results section. ACTIVATED CLOTTING Routine 08/10/2011 2:11 PM Res ults for this TIME, B TETRYL WRINGER OPERATOR procedure are i n the results section. HXGENERAL PATHOLOGY Routine 08/10/2011 1:35 PM Re sults for this REPORT TETRYL WRINGER OPERATOR procedure are i n the results section. ABG W/COOX Routine 08/10/2011 1:32 PM Results f or this TETRYL WRINGER OPERATOR procedure are i n the results section. POTASSIUM, B Routine 08/10/2011 1:32 PM Results f or this TETRYL WRINGER OPERATOR procedure are i n the results section. GLUCOSE, WHOLE BLOOD Routine 08/10/2011 1:32 PM R esults for this TETRYL WRINGER OPERATOR procedure are i n the results section. THROMBOELASTOGRAPH, Routine 08/10/2011 1:32 PM Re sults for this KAOLIN, B TETRYL WRINGER OPERATOR procedure are i n the results section. SODIUM, S/P Routine 08/10/2011 1:32 PM Results f or this TETRYL WRINGER OPERATOR procedure are i n the results section. CALCIUM, IONIZED, S/B Routine 08/10/2011 1:32 PM Results for this TETRYL WRINGER OPERATOR procedure are i n the results section. HEMOGLOBIN (HGB), POCT, Routine 08/10/2011 1:22 PM Results for this B TETRYL WRINGER OPERATOR procedure are i n the results section. ACTIVATED CLOTTING Routine 08/10/2011 1:21 PM Res ults for this TIME, B TETRYL WRINGER OPERATOR procedure are i n the results section. HEMOGLOBIN (HGB), POCT, Routine 08/10/2011 1:03 PM Results for this B TETRYL WRINGER OPERATOR procedure are i n the results section. GLUCOSE POCT, B Routine 08/10/2011 1:03 PM Result s for this TETRYL WRINGER OPERATOR procedure are i n the results section. ACTIVATED CLOTTING Routine 08/10/2011 1:01 PM Res ults for this TIME, B TETRYL WRINGER OPERATOR procedure are i n the results section. ACTIVATED CLOTTING Routine 08/10/2011 12:24 Resul ts for this TIME, B PM TETRYL WRINGER OPERATOR procedure are i n the results section. ACTIVATED CLOTTING Routine 08/10/2011 12:07 Resul ts for this TIME, B PM TETRYL WRINGER OPERATOR procedure are i n the results section. ABG W/COOX Routine 08/10/2011 11:59 Results for this AM TETRYL WRINGER OPERATOR procedure are i n the results section. POTASSIUM, B Routine 08/10/2011 11:59 Results for this AM TETRYL WRINGER OPERATOR procedure are i n the results section. GLUCOSE, WHOLE BLOOD Routine 08/10/2011 11:59 Res ults for this AM TETRYL WRINGER OPERATOR procedure are i n the results section. SODIUM, S/P Routine 08/10/2011 11:59 Results for this AM TETRYL WRINGER OPERATOR procedure are i n the results section. CALCIUM, IONIZED, S/B Routine 08/10/2011 11:59 Re sults for this AM TETRYL WRINGER OPERATOR procedure are i n the results section. HEMOGLOBIN (HGB), POCT, Routine 08/10/2011 11:52 Results for this B AM TETRYL WRINGER OPERATOR procedure are i n the results section. ACTIVATED CLOTTING Routine 08/10/2011 11:50 Resul ts for this TIME, B AM TETRYL WRINGER OPERATOR procedure are i n the results section. ACTIVATED CLOTTING Routine 08/10/2011 11:35 Resul ts for this TIME, B AM TETRYL WRINGER OPERATOR procedure are i n the results section. HXINTRA-OP AUTO TX Routine 08/10/2011 11:34 Resul ts for this AM TETRYL WRINGER OPERATOR procedure are i n the results section. ACTIVATED CLOTTING Routine 08/10/2011 11:21 Resul ts for this TIME, B AM TETRYL WRINGER OPERATOR procedure are i n the results section. ABG W/COOX Routine 08/10/2011 9:58 AM Results f or this TETRYL WRINGER OPERATOR procedure are i n the results section. POTASSIUM, B Routine 08/10/2011 9:58 AM Results f or this TETRYL WRINGER OPERATOR procedure are i n the results section. GLUCOSE, WHOLE BLOOD Routine 08/10/2011 9:58 AM R esults for this TETRYL WRINGER OPERATOR procedure are i n the results section. SODIUM, S/P Routine 08/10/2011 9:58 AM Results f or this TETRYL WRINGER OPERATOR procedure are i n the results section. CALCIUM, IONIZED, S/B Routine 08/10/2011 9:58 AM Results for this TETRYL WRINGER OPERATOR procedure are i n the results section. HEMOGLOBIN (HGB), POCT, Routine 08/10/2011 9:55 AM Results for this B TETRYL WRINGER OPERATOR procedure are i n the results section. ACTIVATED CLOTTING Routine 08/10/2011 9:55 AM Res ults for this TIME, B TETRYL WRINGER OPERATOR procedure are i n the results section. documented in this encounter Results DX Chest AP or PA and Lateral 2 Views (08/13/2011 8:41 AM TETRYL WRINGER OPERATOR) Anatomical Region Laterality Modality Chest N/A Radiographic Imaging Specimen (Source) Anatomical Collection Method Collection Time Re ceived Time Location / / Volume Laterality 08/13/2011 8:41 AM TETRYL WRINGER OPERATOR Narrative 08/13/2011 9:11 AM TETRYL WRINGER OPERATOR 13-Aug-2011 08:41:00 ??Exam: Chest-- 2 Views Indications: dismissal ORIGINAL REPORT - 13-Aug-2011 09:11:00 Chest; 2 views: Since 08-11-2011, the left subclavian cath eter has been removed. Slight increase in the right pleural effusion. Otherwise no change. Linear atelectasis left base. Mitral annuloplasty. Electronically signed by: ?? Bryan Mandujano MD ??[id number] 13-Aug-2011 0 9:11 Procedure Note Mandeep Mandujano M.D. - 09/09/2017Form atting of this note might be different from the original. 13-Aug-2011 08:41:00 Exam: Chest-- 2 Vie ws Indications: dismissal ORIGINAL REPORT - 13-Aug-2011 09:11:00 Chest; 2 views: Since 08-11-2011, the left subclavian cath eter has been removed. Slight increase in the right pleural effusion. Otherwise no change. Linear atelectasis left base. Mitral annuloplasty. Electronically signed by: Bryan Mandujano MD [id number] 13-Aug-2011 09: 11 Иван Morris M.D. IMG DIAGNOSTIC IMAGING PROCE DURES (ABNORMAL) CBC without Differential (08/13/2011 4:49 AM TETRYL WRINGER OPERATOR) Patholo gist Method Time Signature Hemoglobin 10.1 (L) 13.5 - [facility] 17.5 G/DL LAB[facility]ATORIES - [facility] Hematocrit 30.4 (L) 38.8 - [facility] 50.0 % LABORATORIES - [facility] RBC Distrib 12.5 11.8 - [facility] Width 15.6 % [facility] - [facility] Platelet Count 162 150 - 450 [facility] X10(9)/L LABORATORIES [facility] Leukocytes 7.9 3.5 - [facility] 10.5 LABORATORIES - X10(9)/L [facility] Erythrocytes 3.20 (L) 4.32 - [facility] 5.72 LABORATORIES - X10(12)/L [facility] MCV 95.0 81.2 - [facility] 95.1 FL LAB[facility]ATORIES - [facility] Specimen Anatomical Collection Method Collection Time Receive d Time (Source) Location / / Volume Laterality 08/13/2011 4:49 AM 2 4:49 TETRYL WRINGER OPERATOR AM TETRYL WRINGER OPERATOR Иван Morris M.D. LAB BLOOD ADD-ON Performing Organization Address City/State/ZIP Code Phon e Number [facility] LAB[facility]ATORIES - [address] [place], [place] [address] [facility] Electrolyte (Chem 4) Panel (08/13/2011 4:49 AM TETRYL WRINGER OPERATOR) Analysis Performed At Patho logist Time Signature Sodium, S 137 135 - 145 [facility] MMOL/L [facility]IES - [facility] Potassium, S 4.0 3.6 - 5.2 [facility] MMOL/L [facility]IES - [facility] Creatinine 0.9 0.8 - 1.3 [facility] MG/DL LAB[facility]ATORIES - [facility] eGFR >60 >60 [facility] Non-Black/Afric ML/MIN/BSA LABORATORIES - an [place] [facility] Anion Gap 7 7 - 15 [facility] - [facility] Glucose, S 94 70 - 140 [facility] MG/DL [facility] - [facility] Chloride, S 101 100 - 108 [facility] MMOL/L [facility] - [facility] HX Bicarbonate, 29 22 - 29 [facility] P/S MMOL/L [facility]IES - [facility] eGFR-Black/Afri >60 >60 [facility] can [place] ML/MIN/BSA [facility]ATORIES - [facility] BUN (Blood Urea 14 8 - 24 [facility] Nitrogen), S MG/DL [facility] - [facility] Specimen Anatomical Collection Method Collection Time Receive d Time (Source) Location / / Volume Laterality 08/13/2011 4:49 AM 2 4:49 TETRYL WRINGER OPERATOR AM TETRYL WRINGER OPERATOR Иван Morris M.D. LAB BLOOD ADD-ON Performing Organization Address City/State/ZIP Code Phon e Number [facility] LAB[facility]ATORIES - [address] [place] [address] [facility] (ABNORMAL) PT (Prothrombin Time) with INR (08/13/2011 4:49 AM TETRYL WRINGER OPERATOR) Patholo gist Method Time Signature Prothrombin 17.0 (H) 9.5 - [facility] Time, P 13.8 SEC LAB[facility]IES - [facility] INR 1.5 0.8 - 1.2 [facility]ATORIES - [facility] Specimen Anatomical Collection Method Collection Time Receive d Time (Source) Location / / Volume Laterality 08/13/2011 4:49 AM 2 4:49 TETRYL WRINGER OPERATOR AM TETRYL WRINGER OPERATOR Иван Morris M.D. LAB BLOOD ADD-ON Performing Organization Address City/State/ZIP Code Phon e Number [facility]ATORIES - [address] [place], [place] [address] [facility] Magnesium (08/13/2011 4:49 AM TETRYL WRINGER OPERATOR) P athologist Signature Magnesium, S 2.1 1.7 - 2.3 [facility] MG/DL LAB[facility]IES - [facility] Specimen Anatomical Collection Method Collection Time Receive d Time (Source) Location / / Volume Laterality 08/13/2011 4:49 AM 2 4:49 TETRYL WRINGER OPERATOR AM TETRYL WRINGER OPERATOR Иван Morris M.D. LAB BLOOD ADD-ON Performing Organization Address City/State/ZIP Code Phon e Number [facility] LABORATORIES - [address] [place], [place] [address] [facility] (ABNORMAL) PT (Prothrombin Time) with INR (08/12/2011 5:19 AM TETRYL WRINGER OPERATOR) [facility] Method Time Signature Prothrombin 14.0 (H) 9.5 - [facility] Time, P 13.8 SEC LAB[facility]IES - [facility] INR 1.2 0.8 - 1.2 [facility] LABORATORIES - [facility] Specimen Anatomical Collection Method Collection Time Receive d Time (Source) Location / / Volume Laterality 08/12/2011 5:19 AM 2 5:19 TETRYL WRINGER OPERATOR AM TETRYL WRINGER OPERATOR Иван Morris M.D. LAB BLOOD ADD-ON Performing Organization Address City/[facility] Code Phon e Number [facility] LABORATORIES - [address] [place] [address] [facility] Electrolyte (Chem 4) Panel (08/12/2011 5:19 AM TETRYL WRINGER OPERATOR) Analysis Performed At [facility] Time Signature Sodium, S 136 135 - 145 [facility] MMOL/L LABORATORIES [facility] Potassium, S 4.1 3.6 - 5.2 [facility] MMOL/L [facility]IES - [facility] Creatinine 0.9 0.8 - 1.3 [facility] MG/DL LAB[facility]ATORIES - [facility] eGFR >60 >60 [facility] Non-Black/Afric ML/MIN/BSA LABORATORIES - an [place] [facility] eGFR-Black/Afri >60 >60 [facility] can [place] ML/MIN/BSA LABORATORIES - [facility] BUN (Blood Urea 15 8 - 24 [facility] Nitrogen), S MG/DL LAB[facility]ATORIES - [facility] Anion Gap 8 7 - 15 [facility] Glucose, S 98 70 - 140 [facility] MG/DL [facility]IES - [facility] Chloride, S 101 100 - 108 [facility] MMOL/L [facility]IES - [facility] HX Bicarbonate, 27 22 - 29 [facility] P/S MMOL/L [facility]IES - [facility] Specimen Anatomical Collection Method Collection Time Receive d Time (Source) Location / / Volume Laterality 08/12/2011 5:19 AM 2 5:19 TETRYL WRINGER OPERATOR AM TETRYL WRINGER OPERATOR Иван Morris M.D. LAB BLOOD ADD-ON Performing Organization Address City/[facility] Phon e Number [facility] LABORATORIES - [address] [place], [place] [address] [facility] (ABNORMAL) CBC without Differential (08/12/2011 5:19 AM TETRYL WRINGER OPERATOR) [facility] Method Time Signature Hemoglobin 10.2 (L) 13.5 - [facility] 17.5 G/DL LAB[facility]ATORIES - [facility] Hematocrit 31.0 (L) 38.8 - [facility] 50.0 % LAB[facility]ATORIES - [facility] RBC Distrib 12.6 11.8 - [facility] Width 15.6 % [facility]ATORIES - [facility] Platelet Count 150 150 - 450 [facility] X10(9)/L LAB[facility]ATORIES - [facility] Erythrocytes 3.26 (L) 4.32 - [facility] 5.72 LABORATORIES - X10(12)/L [facility] MCV 95.1 81.2 - [facility] 95.1 FL LABORATORIES - [facility] Leukocytes 11.1 (H) 3.5 - [facility] 10.5 LABORATORIES - X10(9)/L [facility] Specimen Anatomical Collection Method Collection Time Receive d Time (Source) Location / / Volume Laterality 08/12/2011 5:19 AM 2 5:19 TETRYL WRINGER OPERATOR AM TETRYL WRINGER OPERATOR Иван Morris M.D. LAB BLOOD ADD-ON Performing Organization Address City/State/ZIP Code Phon e Number [facility]ATORIES - [address] [place] [address] [facility] DX Chest AP or PA and Lateral 2 Views (08/11/2011 5:46 PM TETRYL WRINGER OPERATOR) Anatomical Region Laterality Modality Chest N/A Radiographic Imaging Specimen (Source) Anatomical Collection Method Collection Time Re ceived Time Location / / Volume Laterality 08/11/2011 5:46 PM TETRYL WRINGER OPERATOR Narrative 08/11/2011 7:23 PM TETRYL WRINGER OPERATOR 11-Aug-2011 17:46:00 ??Exam: Chest-- 2 Views Indications: s/p chest tube removal, r/o pneumothorax ORIGINAL REPORT - 11-Aug-2011 19:00:00 Chest; 2 views: Since 08-10-2011, the right chest tube keith s been removed. No definite pneumothorax is identified. 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 Mitral valve annuloplasty. Atelectasis or infilt rate in the lung bases medially, unchang ed. Small right pleural effusion. Electronically signed by: ?? Sidney Yo MD [phone] [id number] 11-Aug-2011 19:00 I have reviewed the films/images and agr ee with the above interpretation. Electronically signed by: ?? Stella Espino MD [id number] 11-Aug-2011 19:23 Procedure Note Rivera Espino M.D. - 09/09/2017For matting of this note might be different from the original. 11-Aug-2011 17:46:00 Exam: Chest-- 2 Vie ws Indications: s/p chest tube removal, r/o pneumothorax ORIGINAL REPORT - 11-Aug-2011 19:00:00 Chest; 2 views: Since 08-10-2011, the right chest tube keith s been removed. No definite pneumothorax is identified. 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 Mitral valve annuloplasty. Atelectasis or infiltrate in the lung bases medially, unchanged. Small ri ght pleural effusion. Electronically signed by: Sidney Yo MD [phone] 11-Aug-2011 19:00 I have reviewed the films/images and agr ee with the above interpretation. Electronically signed by: Stella Espino MD [id number] 11-Aug-2011 19:23 Иван Morris M.D. IMG DIAGNOSTIC IMAGING PROCE DURES (ABNORMAL) Blood Gas with Coox, Arterial (08/11/2011 5:54 AM TETRYL WRINGER OPERATOR) Patholo gist Method Time Signature Device [facility] pO2 103 (H) 80 - 100 [facility] MM HG [facility] pCO2 44 35 - 45 [facility] MM HG [facility] pH 7.35 7.35 - [facility] 7.45 PH [facility] Hb 10.2 (L) 13.5 - [facility] 17.5 G/DL [facility] O2Hb 96.0 94.0 - [facility] 98.0 % [facility] CtO2 13.9 (L) 21.0 - [facility] 23.0 VOL [facility] Arterial Art Line [facility] Sample Site [facility] O2 Flow 2.0 L/MIN [facility] Base Excess -1 -2 - 2 [facility] MMOL/L [facility] HCO3 24 22 - 26 [facility] MMOL/L [facility] COHb 1.3 <3.0 % [facility] MetHb 1.0 <1.6 % [facility] Specimen Anatomical Collection Method Collection Time Receive d Time (Source) Location / / Volume Laterality 08/11/2011 5:54 AM 2 5:54 TETRYL WRINGER OPERATOR AM TETRYL WRINGER OPERATOR Zahra Ayon P.A.-C. LAB BLOOD NON ADD-ON Performing Organization Address City/[facility]/ZIP Code Phon e Number [facility] LABORATORIES - [address] [place] [address] [facility] (ABNORMAL) APTT (Activated Partial Thromboplastin Time) (08/11/2011 4:11 AM TETRYL WRINGER OPERATOR) P athologist Signature APTT, P 26 (L) 28 - 38 SEC [facility] Specimen Anatomical Collection Method Collection Time Receive d Time (Source) Location / / Volume Laterality 08/11/2011 4:11 AM 2 4:11 TETRYL WRINGER OPERATOR AM TETRYL WRINGER OPERATOR Bassam Lisa M.D. LAB BLOOD ADD-ON Performing Organization Address [facility] Phon e Number [facility] LAB[facility]IES - [address] [place] [address] [facility] (ABNORMAL) CBC without Differential (08/11/2011 4:11 AM TETRYL WRINGER OPERATOR) Patholo gist Method Time Signature Hemoglobin 10.4 (L) 13.5 - [facility] 17.5 G/DL [facility] Hematocrit 32.0 (L) 38.8 - [facility] 50.0 % [facility] Erythrocytes 3.36 (L) 4.32 - [facility] 5.72 LABORATORIES - X10(12)/L [facility] MCV 95.2 (H) 81.2 - [facility] 95.1 FL [facility] RBC Distrib 12.5 11.8 - [facility] Width 15.6 % [facility] Platelet Count 177 150 - 450 [facility] X10(9)/L [facility] Leukocytes 14.4 (H) 3.5 - [facility] 10.5 LABORATORIES - X10(9)/L [facility] Specimen Anatomical Collection Method Collection Time Receive d Time (Source) Location / / Volume Laterality 08/11/2011 4:11 AM 2 4:11 TETRYL WRINGER OPERATOR AM TETRYL WRINGER OPERATOR Bassam Lisa M.D. LAB BLOOD ADD-ON Performing Organization Address City/[facility]/ZIP Code Phon e Number [facility] LABORATORIES - [address] [place], [place] [address] [facility] (ABNORMAL) Magnesium (08/11/2011 4:11 AM TETRYL WRINGER OPERATOR) [facility] Signature Magnesium, S 2.7 (H) 1.7 - 2.3 [facility] MG/DL LABORATORIES [facility] Specimen Anatomical Collection Method Collection Time Receive d Time (Source) Location / / Volume Laterality 08/11/2011 4:11 AM 2 4:11 TETRYL WRINGER OPERATOR AM TETRYL WRINGER OPERATOR Bassam Lisa M.D. LAB BLOOD ADD-ON Performing Organization Address City/State/ZIP Code Phon e Number [facility] LABORATORIES - [address] [place], [place] [address] [facility] PT (Prothrombin Time) with INR (08/11/2011 4:11 AM TETRYL WRINGER OPERATOR) [facility] Method Time Signature Prothrombin 12.0 9.5 - 13.8 [facility] Time, P SEC LABORATORIES [facility] INR 1.0 0.8 - 1.2 [facility] - [facility] Specimen Anatomical Collection Method Collection Time Receive d Time (Source) Location / / Volume Laterality 08/11/2011 4:11 AM 2 4:11 TETRYL WRINGER OPERATOR AM TETRYL WRINGER OPERATOR Bassam Lisa M.D. LAB BLOOD ADD-ON Performing Organization Address City/State/ZIP Code Phon e Number [facility] LABORATORIES - [address] [place], [place] [address] [facility] (ABNORMAL) Electrolyte (Chem 4) Panel (08/11/2011 4:11 AM TETRYL WRINGER OPERATOR) [facility] Method Time Signature Sodium, S 134 (L) 135 - 145 [facility] MMOL/L LABORATORIES [facility] Potassium, S 4.6 3.6 - 5.2 [facility] MMOL/L [facility] eGFR-Black/Afri >60 >60 [facility] can [place] ML/MIN/BS LABORATORIES - [facility] BUN (Blood Urea 20 8 - 24 [facility] Nitrogen), S MG/DL [facility] Chloride, S 100 100 - 108 [facility] MMOL/L [facility] - [facility] HX Bicarbonate, 23 22 - 29 [facility] P/S MMOL/L LABORATORIES [facility] Creatinine 0.9 0.8 - 1.3 [facility] MG/DL [facility] eGFR >60 >60 [facility] Non-Black/Afric ML/MIN/BS LABORATORIES - an [place] A [facility] Anion Gap 11 7 - 15 [facility] Glucose, S 132 70 - 140 [facility] MG/DL [facility] Specimen Anatomical Collection Method Collection Time Receive d Time (Source) Location / / Volume Laterality 08/11/2011 4:11 AM 2 4:11 TETRYL WRINGER OPERATOR AM TETRYL WRINGER OPERATOR Bassam Lisa M.D. LAB BLOOD ADD-ON Performing Organization Address City/[facility] Code Phon e Number [facility] LABORATORIES - [address] [place], [place] [address] [facility] (ABNORMAL) Blood Gas with Coox, Arterial (08/10/2011 6:52 PM TETRYL WRINGER OPERATOR) [facility] Method Time Signature pO2 79 (L) 80 - 100 [facility] MM HG [facility] pCO2 43 35 - 45 [facility] MM HG [facility] O2Hb 92.8 (L) 94.0 - [facility] 98.0 % [facility] COHb 1.2 <3.0 % [facility] Arterial Art Line [facility] Sample Site [facility] O2 Flow 1.0 L/MIN [facility] Device NC [facility] Spont. 16 [facility] breaths/min [facility] pH 7.34 (L) 7.35 - [facility] 7.45 PH [facility] Base Excess -3 (L) -2 - 2 [facility] MMOL/L [facility] HCO3 22 22 - 26 [facility] MMOL/L [facility] Hb 11.8 (L) 13.5 - [facility] 17.5 G/DL [facility] MetHb 1.1 <1.6 % [facility] CtO2 15.4 (L) 21.0 - [facility] 23.0 VOL LABORATORIES - [facility] Specimen Anatomical Collection Method Collection Time Receive d Time (Source) Location / / Volume Laterality 08/10/2011 6:52 PM 2 6:52 TETRYL WRINGER OPERATOR PM TETRYL WRINGER OPERATOR Иван Morris M.D. LAB BLOOD NON ADD-ON Performing Organization Address City/State/ZIP Code Phon e Number [facility] LABORATORIES - [address] [place], [place] [address] [facility] Potassium, Blood (08/10/2011 6:52 PM TETRYL WRINGER OPERATOR) athologist Signature Potassium, B 3.8 3.6 - 5.2 [facility] MMOL/L LABORATORIES - [facility] Specimen Anatomical Collection Method Collection Time Receive d Time (Source) Location / / Volume Laterality 08/10/2011 6:52 PM 2 6:52 TETRYL WRINGER OPERATOR PM TETRYL WRINGER OPERATOR Иван Morris M.D. LAB BLOOD NON ADD-ON Performing Organization Address City/State/ZIP Code Phon e Number [facility] LABORATORIES - [address] [place], [place] [address] [facility] Glucose, POCT (08/10/2011 3:26 PM TETRYL WRINGER OPERATOR) [facility] Method Time Signature Glucose, POCT, 126 70 - 140 [facility] B MG/DL LABORATORIES - [facility] Sample Site, Artline [facility] Blood Gas, LABORATORIES - POCT [facility] Specimen Anatomical Collection Method Collection Time Receive d Time (Source) Location / / Volume Laterality 08/10/2011 3:26 PM 2 3:26 TETRYL WRINGER OPERATOR PM TETRYL WRINGER OPERATOR Historical Provider LAB POCT ORDERABLES-MANUAL Performing Organization Address City/State/ZIP Code Phon e Number [facility] LABORATORIES - [address] [place] [address] [facility] (ABNORMAL) Electrolyte (Chem 4) Panel (08/10/2011 3:26 PM TETRYL WRINGER OPERATOR) [facility] Method Time Signature Sodium, P 140 135 - 145 [facility] MMOL/L LABORATORIES - [facility] Potassium, P 3.4 (L) 3.6 - 5.2 [facility] MMOL/L LABORATORIES - [facility] Chloride, S 106 100 - 108 [facility] MMOL/L LABORATORIES - [facility] Creatinine 1.2 0.8 - 1.3 [facility] MG/DL LABORATORIES - [facility] eGFR >60 >60 [facility] Non-Black/Afric ML/MIN/BS LABORATORIES - an [place] A [facility] eGFR-Black/Afri >60 >60 [facility] can [place] ML/MIN/BS LABORATORIES - A [facility] Glucose, S 124 70 - 140 [facility] MG/DL LABORATORIES - [facility] BUN (Blood Urea 18 8 - 24 [facility] Nitrogen), S MG/DL [facility] HX Bicarbonate, 23 22 - 29 [facility] P/S MMOL/L [facility] Specimen Anatomical Collection Method Collection Time Receive d Time (Source) Location / / Volume Laterality 08/10/2011 3:26 PM 2 3:26 TETRYL WRINGER OPERATOR PM TETRYL WRINGER OPERATOR Иван Morris M.D. LAB BLOOD ADD-ON Performing Organization Address City/[facility]/ZIP Code Phon e Number [facility] LABORATORIES - [address] [place] [address] [facility] (ABNORMAL) Blood Gas with Coox, Arterial (08/10/2011 3:26 PM TETRYL WRINGER OPERATOR) [employer] Method Time Signature Device NC [facility] pO2 115 (H) 80 - 100 [facility] MM HG [facility] Base Excess -3 (L) -2 - 2 [facility] MMOL/L [facility] HCO3 22 22 - 26 [facility] MMOL/L [facility] COHb 1.1 <3.0 % [facility] MetHb 1.1 <1.6 % [facility] Arterial Art Line [facility] Sample Site [facility] O2 Flow 2.0 L/MIN [facility] pCO2 43 35 - 45 [facility] MM HG [facility] pH 7.33 (L) 7.35 - [facility] 7.45 PH [facility] Hb 12.0 (L) 13.5 - [facility] 17.5 G/DL [facility] O2Hb 96.0 94.0 - [facility] 98.0 % [facility] CtO2 16.4 (L) 21.0 - [facility] 23.0 VOL LABORATORIES - [facility] Specimen Anatomical Collection Method Collection Time Receive d Time (Source) Location / / Volume Laterality 08/10/2011 3:26 PM 2 3:26 TETRYL WRINGER OPERATOR PM TETRYL WRINGER OPERATOR Иван Morris M.D. LAB BLOOD NON ADD-ON Performing Organization Address City/State/ZIP Code Phon e Number [facility] LABORATORIES - [address] [place] [address] [facility] PT (Prothrombin Time) with INR (08/10/2011 3:26 PM TETRYL WRINGER OPERATOR) Patholo gist Method Time Signature Prothrombin 11.9 9.5 - 13.8 [facility] Time, P SEC [facility] INR 1.1 0.8 - 1.2 [facility] Specimen Anatomical Collection Method Collection Time Receive d Time (Source) Location / / Volume Laterality 08/10/2011 3:26 PM 2 3:26 TETRYL WRINGER OPERATOR PM TETRYL WRINGER OPERATOR Иван Morris M.D. LAB BLOOD ADD-ON Performing Organization Address City/[facility]/ZIP Code Phon e Number [facility] LABORATORIES - [address] [place] [address] [facility] APTT (Activated Partial Thromboplastin Time) (08/10/2011 3:26 PM TETRYL WRINGER OPERATOR) P athologist Signature APTT, P 33 28 - 38 SEC [facility] Specimen Anatomical Collection Method Collection Time Receive d Time (Source) Location / / Volume Laterality 08/10/2011 3:26 PM 2 3:26 TETRYL WRINGER OPERATOR PM TETRYL WRINGER OPERATOR Иван Morris M.D. LAB BLOOD ADD-ON Performing Organization Address City/[facility]/ZIP Code Phon e Number [facility] LABORATORIES - [address] [place] [address] [facility] (ABNORMAL) Magnesium (08/10/2011 3:26 PM TETRYL WRINGER OPERATOR) Analysis Performed At Patho logist Time Signature Magnesium, S 2.7 (H) 1.7 - 2.3 [facility] MG/DL [facility] Specimen Anatomical Collection Method Collection Time Receive d Time (Source) Location / / Volume Laterality 08/10/2011 3:26 PM 2 3:26 TETRYL WRINGER OPERATOR PM TETRYL WRINGER OPERATOR Иван Morris M.D. LAB BLOOD ADD-ON Performing Organization Address City/State/ZIP Code Phon e Number [facility] LABORATORIES - [address] [place] [address] [facility] Fibrinogen (08/10/2011 3:26 PM TETRYL WRINGER OPERATOR) P athologist Signature HX Fibrinogen, 257 200 - 375 [facility] Ltd Range (P) MG/DL [facility] Specimen Anatomical Collection Method Collection Time Receive d Time (Source) Location / / Volume Laterality 08/10/2011 3:26 PM 2 3:26 TETRYL WRINGER OPERATOR PM TETRYL WRINGER OPERATOR Иван Morris M.D. LAB BLOOD ADD-ON Performing Organization Address City/[facility]/ZIP Code Phon e Number [facility] LABORATORIES - [address] [place] [address] [facility] (ABNORMAL) CBC without Differential (08/10/2011 3:26 PM TETRYL WRINGER OPERATOR) [facility] gist Method Time Signature Erythrocytes 3.75 (L) 4.32 - [facility] 5.72 LABORATORIES - X10(12)/L [facility] MCV 96.0 (H) 81.2 - [facility] 95.1 FL LABORATORIES - [facility] Leukocytes 19.8 (H) 3.5 - [facility] 10.5 LABORATORIES - X10(9)/L [facility] Hemoglobin 11.9 (L) 13.5 - [facility] 17.5 G/DL LABORATORIES - [facility] Hematocrit 36.0 (L) 38.8 - [facility] 50.0 % LABORATORIES - [facility] RBC Distrib 12.5 11.8 - [facility] Width 15.6 % [facility] - [facility] Platelet Count 210 150 - 450 [facility] X10(9)/L LABORATORIES - [facility] Specimen Anatomical Collection Method Collection Time Receive d Time (Source) Location / / Volume Laterality 08/10/2011 3:26 PM 2 3:26 TETRYL WRINGER OPERATOR PM TETRYL WRINGER OPERATOR Иван Morris M.D. LAB BLOOD ADD-ON Performing Organization Address City/State/ZIP Code Phon e Number [facility] LABORATORIES - [address] [place] [address] [facility] Calcium, Ionized (08/10/2011 3:26 PM TETRYL WRINGER OPERATOR) athologist Signature Calcium, 4.70 4.65 - [facility] Ionized, B 5.30 MG/DL LABORATORIES - [facility] Specimen Anatomical Collection Method Collection Time Receive d Time (Source) Location / / Volume Laterality 08/10/2011 3:26 PM 2 3:26 TETRYL WRINGER OPERATOR PM TETRYL WRINGER OPERATOR Иван Morris M.D. LAB BLOOD NON ADD-ON Performing Organization Address City/State/ZIP Code Phon e Number [facility] LABORATORIES - [address] [place] [address] [facility] (ABNORMAL) Thromboelastograph, Kaolin, Blood (08/10/2011 3:26 PM TETRYL WRINGER OPERATOR) Patholo gist Method Time Signature R Time 8.4 (H) 2.9 - 6.4 [facility] MIN LABORATORIES [facility] K Time 2.8 (H) 1.0 - 1.8 [facility] MIN LABORATORIES [facility] Maximum 51.9 (L) 57.1 - 72.6 [facility] Amplitude MM LABORATORIES [facility] Ly30 2.9 0.0 - 4.8 % [facility] R + K 11.2 (H) 4.1 - 8.0 [facility] MIN LABORATORIES - [facility] Angle 53.9 (L) 64.0 - 78.1 [facility] DEGREES LABORATORIES [facility] Specimen Anatomical Collection Method Collection Time Receive d Time (Source) Location / / Volume Laterality 08/10/2011 3:26 PM 2 3:26 TETRYL WRINGER OPERATOR PM TETRYL WRINGER OPERATOR Иван Morris M.D. LAB BLOOD NON ADD-ON Performing Organization Address City/[facility]/ZIP Code Phon e Number [facility] LABORATORIES - [address] ACT (Activated Clotting Time), POCT (08/10/2011 3:25 PM TETRYL WRINGER OPERATOR) P athologist Signature Activated 123 84 - 139 [facility] Clotting Time, SEC LABORATORIES - POCT [facility] Specimen Anatomical Collection Method Collection Time Receive d Time (Source) Location / / Volume Laterality 08/10/2011 3:25 PM 2 3:25 TETRYL WRINGER OPERATOR PM TETRYL WRINGER OPERATOR Historical Provider LAB POCT ORDERABLES - DEVICE Performing Organization Address City/[facility] Phon e Number [facility] LABORATORIES - [address] DX Chest 1 View (08/10/2011 2:56 PM TETRYL WRINGER OPERATOR) Anatomical Region Laterality Modality Chest N/A Radiographic Imaging Specimen (Source) Anatomical Collection Method Collection Time Re ceived Time Location / / Volume Laterality 08/10/2011 2:56 PM TETRYL WRINGER OPERATOR Narrative 08/10/2011 3:13 PM TETRYL WRINGER OPERATOR 10-Aug-2011 14:56:00 ??Exam: Chest-Single View Indications: or 607, robotic mitral valv e ORIGINAL REPORT - 10-Aug-2011 15:13:00 Chest; 1 view: PO mitral annuloplasty. Chest negative f or PO purposes. Right chest tube. ??Central line in the SVC. Lungs almost clear. Electronically signed by: ?? Rayna Bolanos MD. ??[id number] 10-Aug-2011 15:1 3 Procedure Note Arabella Bolanos M.D. - 09/09/2017Formatti ng of this note might be different from the original. 10-Aug-2011 14:56:00 Exam: Chest-Single View Indications: or 607, robotic mitral valv e ORIGINAL REPORT - 10-Aug-2011 15:13:00 Chest; 1 view: PO mitral annuloplasty. Chest negative f or PO purposes. Right chest tube. Central line in the SVC. Lungs almost clear. Electronically signed by: Rayna Bolanos MD. [id number] 10-Aug-2011 15:13 Иван Morris M.D. IMG DIAGNOSTIC IMAGING PROCE DURES (ABNORMAL) Hemoglobin (HGB), POCT (08/10/2011 2:12 PM TETRYL WRINGER OPERATOR) [facility] Time Signature Hemoglobin, B 12.4 (L) 13.5 - [facility] 17.5 G/DL LABORATORIES - [facility] Specimen Anatomical Collection Method Collection Time Receive d Time (Source) Location / / Volume Laterality 08/10/2011 2:12 PM 2 2:12 TETRYL WRINGER OPERATOR PM TETRYL WRINGER OPERATOR Jung Vega Jr., M.D. LAB POCT ORDERABLES - DEVIC E Performing Organization Address City/[facility]/ZIP Code Phon e Number [facility] LABORATORIES - [address] [place] [address] [facility] Activated Clotting Time (08/10/2011 2:11 PM TETRYL WRINGER OPERATOR) P athologist Signature Activated 149 SEC [facility] Clotting Time, LABORATORIES - POCT [facility] Specimen Anatomical Collection Method Collection Time Receive d Time (Source) Location / / Volume Laterality 08/10/2011 2:11 PM 2 2:11 TETRYL WRINGER OPERATOR PM TETRYL WRINGER OPERATOR Jung Vega Jr., M.D. LAB BLOOD ADD-ON Performing Organization Address City/[facility]/ZIP Code Phon e Number [facility] LABORATORIES - [address] [place] [address] [facility] Hx general Pathology Report (08/10/2011 1:35 PM TETRYL WRINGER OPERATOR) Specimen Anatomical Collection Method Collection Time Receive d Time (Source) Location / / Volume Laterality 08/10/2011 1:35 PM 2 1:35 TETRYL WRINGER OPERATOR PM TETRYL WRINGER OPERATOR Narrative [facility] - 08/10/2011 1:35 PM TETRYL WRINGER OPERATOR ??08/10/2011 General Biopsy ? ([id number]) ? Requested By: Иван Morris M.D. ? ?[id number] ? SLIDE DISPOSITION: ? DIAGNOSIS: ?A. ? 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 ? 08/11/2011 18:34 Interpreted by: Fan Raygoza M.D. [phone] Report electronically signed by Fan Raygoza M.D. Transcribed by: flynn 08/11/2011 14:10:04 ? TISSUE DESCRIPTION: [id number] A1 ?A. ? Received in formalin l abeled mitral valve leaflet is a portion of mitral leaflet, measuring 1. 1 x 0.9 x 0.3 cm, showing diffuse rubbery thickening, without renard cification, vegetation, or perforation. ??Entirely submitted for m icroscopy in cassette A1. ? Part A: ??Mitral vavle leaflet ?1 MV leaflet ?? CV Path ? Procedure Note 09/02/2017 08/10/2011 General Biopsy ([id number]) Requested By: Иван Morris M.D. [phone] SLIDE DISPOSITION: DIAGNOSIS: A. 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 08/11/2011 18:34 Interpreted by: Fan Raygoza M.D. [phone] Report electronically signed by Fan Raygoza M.D. Transcribed by: flynn 08/11/2011 14:10:04 TISSUE DESCRIPTION: [id number] A1 A. Received in formalin labeled mitral valve leaflet is a portion of mitral leaflet, measuring 1. 1 x 0.9 x 0.3 cm, showing diffuse rubbery thickening, without renard cification, vegetation, or perforation. Entirely submitted for jeremiah roscopy in cassette A1. Part A: Mitral vavle leaflet 1 MV leaflet CV Path Иван Morris M.D. LAB PATHOLOGY/CYTOLOGY ORDER RIGO Performing Organization Address City/[facility] Code Phon e Number [facility] - [address] (ABNORMAL) Thromboelastograph, Kaolin, Blood (08/10/2011 1:32 PM TETRYL WRINGER OPERATOR) P athologist Signature R + K 10.1 (H) 4.1 - 8.0 [facility] MIN [facility] Comment: [place] Angle 57.7 (L) 64.0 - 78.1 [facility] Comment: [place] Maximum Amplitude 50.4 (L) 57.1 - 72.6 MM MAY [facility] Comment: [place] Ly30 7.2 (H) 0.0 - 4.8 % [facility] [place] R Time 7.5 (H) 2.9 - 6.4 MIN [facility] Comment: [place] K Time 2.6 (H) 1.0 - 1.8 MIN [facility] Comment: [place] Specimen Anatomical Collection Method Collection Time Receive d Time (Source) Location / / Volume Laterality 08/10/2011 1:32 PM 2 1:32 TETRYL WRINGER OPERATOR PM TETRYL WRINGER OPERATOR Narrative [facility] - 08/10/2011 2:30 PM TETRYL WRINGER OPERATOR [place]wn [place] Historical Provider LAB BLOOD NON ADD-ON Performing Organization Address [facility]/ZIP Code Phon e Number [facility] - [address] [place] [address] [facility] (ABNORMAL) Blood Gas with Coox, Arterial (08/10/2011 1:32 PM TETRYL WRINGER OPERATOR) athologist Signature pH 7.31 (L) 7.35 - [facility] 7.45 PH [facility] Comment: [place] Base Excess -4 (L) -2 - 2 MMOL/L [facility] Comment: [place] O2Hb 92.1 (L) 94.0 - 98.0 % [facility] Comment: [place] COHb 1.6 <3.0 % [facility] Comment: [place] pO2 83 80 - 100 MM HG [facility] Comment: [place] pCO2 45 35 - 45 MM HG [facility] Comment: [place] HCO3 22 22 - 26 MMOL/L [facility] Comment: [place] Hb 11.3 (L) 13.5 - 17.5 G/DL [facility] Comment: [place] MetHb 1.4 <1.6 % [facility] Comment: [place] CtO2 14.7 (L) 21.0 - 23.0 VOL % [facility] Comment: [place] Specimen Anatomical Collection Method Collection Time Receive d Time (Source) Location / / Volume Laterality 08/10/2011 1:32 PM 2 1:32 TETRYL WRINGER OPERATOR PM TETRYL WRINGER OPERATOR Narrative [facility] - 08/10/2011 1:37 PM TETRYL WRINGER OPERATOR [place] Historical Provider LAB BLOOD NON ADD-ON Performing Organization Address City/State/ZIP Code Phon e Number [facility] - [address] [place], [place] [address] [facility] Calcium, Ionized (08/10/2011 1:32 PM TETRYL WRINGER OPERATOR) athologist Signature Calcium, 4.66 4.65 - [facility] Ionized, B 5.30 MG/DL [facility] Comment: [place] Specimen Anatomical Collection Method Collection Time Receive d Time (Source) Location / / Volume Laterality 08/10/2011 1:32 PM 2 1:32 TETRYL WRINGER OPERATOR PM TETRYL WRINGER OPERATOR Narrative [facility] - 08/10/2011 1:37 PM TETRYL WRINGER OPERATOR [place] Historical Provider LAB BLOOD NON ADD-ON Performing Organization Address City/[facility] Phon e Number [facility] - [address] [address] [facility] (ABNORMAL) Glucose, Whole Blood (08/10/2011 1:32 PM TETRYL WRINGER OPERATOR) athologist Signature Glucose, S 168 (H) 70 - 140 [facility] MG/DL [facility] Comment: [place] Specimen Anatomical Collection Method Collection Time Receive d Time (Source) Location / / Volume Laterality 08/10/2011 1:32 PM 2 1:32 TETRYL WRINGER OPERATOR PM TETRYL WRINGER OPERATOR Narrative [facility] - 08/10/2011 1:37 PM TETRYL WRINGER OPERATOR [place] Historical Provider LAB BLOOD TROPONIN Performing Organization Address City/[facility]/ZIP [facility] Phon e Number [facility] - [address] [address] 05 [facility] Potassium, Blood (08/10/2011 1:32 PM TETRYL WRINGER OPERATOR) athologist Signature Potassium, B 4.0 3.6 - 5.2 [facility] MMOL/L [facility] Comment: [place] Specimen Anatomical Collection Method Collection Time Receive d Time (Source) Location / / Volume Laterality 08/10/2011 1:32 PM 2 1:32 TETRYL WRINGER OPERATOR PM TETRYL WRINGER OPERATOR Narrative [facility] - 08/10/2011 1:37 PM TETRYL WRINGER OPERATOR [place] Historical Provider LAB BLOOD NON ADD-ON Performing Organization Address City/[facility]/ZIP Code Phon e Number [facility] LABORATORIES - [address] [address] 05 [facility] Sodium (08/10/2011 1:32 PM TETRYL WRINGER OPERATOR) athologist Signature Sodium, B 136 135 - 145 [facility] MMOL/L [facility] Comment: [place] Specimen Anatomical Collection Method Collection Time Receive d Time (Source) Location / / Volume Laterality 08/10/2011 1:32 PM 2 1:32 TETRYL WRINGER OPERATOR PM TETRYL WRINGER OPERATOR Narrative [facility] - 08/10/2011 1:37 PM TETRYL WRINGER OPERATOR [place] Historical Provider LAB BLOOD ADD-ON Performing Organization Address City/[facility]/ZIP [facility] Phon e Number [facility] LABORATORIES - [address] [address] 05 [facility] (ABNORMAL) Hemoglobin (HGB), POCT (08/10/2011 1:22 PM TETRYL WRINGER OPERATOR) [facility] Method Time Signature Hemoglobin, B 11.0 (L) 13.5 - [facility] 17.5 G/DL LABORATORIES - [facility] Specimen Anatomical Collection Method Collection Time Receive d Time (Source) Location / / Volume Laterality 08/10/2011 1:22 PM 2 1:22 TETRYL WRINGER OPERATOR PM TETRYL WRINGER OPERATOR Jung Vega Jr., M.D. LAB POCT ORDERABLES - DEVIC E Performing Organization Address [facility] Phon e Number [facility] LABORATORIES - [address] [address] 05 [facility] Activated Clotting Time (08/10/2011 1:21 PM TETRYL WRINGER OPERATOR) P athologist Signature Activated 158 SEC [facility] Clotting Time, LABORATORIES - POCT [facility] Specimen Anatomical Collection Method Collection Time Receive d Time (Source) Location / / Volume Laterality 08/10/2011 1:21 PM 2 1:21 TETRYL WRINGER OPERATOR PM TETRYL WRINGER OPERATOR Jung Vega Jr., M.D. LAB BLOOD ADD-ON Performing Organization Address City/[facility]/ZIP Code Phon e Number [facility] LAB[facility]ATORIES - [address] [address] 05 [facility] (ABNORMAL) Hemoglobin (HGB), POCT (08/10/2011 1:03 PM TETRYL WRINGER OPERATOR) [facility] Method Time Signature Hemoglobin, B 11.3 (L) 13.5 - [facility] 17.5 G/DL LAB[facility]ATORIES - [facility] Specimen Anatomical Collection Method Collection Time Receive d Time (Source) Location / / Volume Laterality 08/10/2011 1:03 PM 2 1:03 TETRYL WRINGER OPERATOR PM TETRYL WRINGER OPERATOR Jung Vega Jr., M.D. LAB POCT ORDERABLES - DEVIC E Performing Organization Address City/[facility] Phon e Number [facility]ATORIES - [address] [address] 05 [facility] (ABNORMAL) Glucose, POCT (08/10/2011 1:03 PM TETRYL WRINGER OPERATOR) Patholo gist Method Time Signature Glucose, POCT, 227 (H) 70 - 140 [facility] B MG/DL [facility]ATORIES - [facility] Specimen Anatomical Collection Method Collection Time Receive d Time (Source) Location / / Volume Laterality 08/10/2011 1:03 PM 2 1:03 TETRYL WRINGER OPERATOR PM TETRYL WRINGER OPERATOR Historical Provider LAB POCT ORDERABLES-MANUAL Performing Organization Address City/[facility]/ZIP Code Phon e Number [facility] LABORATORIES - [address] [address] 05 [facility] Activated Clotting Time (08/10/2011 1:01 PM TETRYL WRINGER OPERATOR) P athologist Signature Activated 591 SEC [facility] Clotting Time, LABORATORIES - POCT [facility] Specimen Anatomical Collection Method Collection Time Receive d Time (Source) Location / / Volume Laterality 08/10/2011 1:01 PM 2 1:01 TETRYL WRINGER OPERATOR PM TETRYL WRINGER OPERATOR Jung Vega Jr., M.D. LAB BLOOD ADD-ON Performing Organization Address City/[facility] Code Phon e Number [facility] LABORATORIES - [address] [address] 05 [facility] Activated Clotting Time (08/10/2011 12:24 PM TETRYL WRINGER OPERATOR) P athologist Signature Activated 664 SEC [facility] Clotting Time, LABORATORIES - POCT [facility] Specimen Anatomical Collection Method Collection Time Receive d Time (Source) Location / / Volume Laterality 08/10/2011 12:24 08/10/2011 PM TETRYL WRINGER OPERATOR 12:24 PM TETRYL WRINGER OPERATOR Jung Vega Jr., M.D. LAB BLOOD ADD-ON Performing Organization Address City/State/ZIP Code Phon e Number [facility] LABORATORIES - [address] [address] 05 [facility] Activated Clotting Time (08/10/2011 12:07 PM TETRYL WRINGER OPERATOR) P athologist Signature Activated 521 SEC [facility] Clotting Time, LABORATORIES - POCT [facility] Specimen Anatomical Collection Method Collection Time Receive d Time (Source) Location / / Volume Laterality 08/10/2011 12:07 08/10/2011 PM TETRYL WRINGER OPERATOR 12:07 PM TETRYL WRINGER OPERATOR Jung Vega Jr., M.D. LAB BLOOD ADD-ON Performing Organization Address City/[facility]/ZIP Code Phon e Number [facility] - [address] [place], [place] [address] [facility] Potassium, Blood (08/10/2011 11:59 AM TETRYL WRINGER OPERATOR) athologist Signature Potassium, B 4.2 3.6 - 5.2 [facility] MMOL/L [facility] Comment: [place] Specimen Anatomical Collection Method Collection Time Receive d Time (Source) Location / / Volume Laterality 08/10/2011 11:59 08/10/2011 AM TETRYL WRINGER OPERATOR 11:59 AM TETRYL WRINGER OPERATOR Narrative [facility] - 08/10/2011 12:05 PM TETRYL WRINGER OPERATOR [place] Historical Provider LAB BLOOD NON ADD-ON Performing Organization Address City/State/ZIP Code Phon e Number [facility] - [address] [address] 05 [facility] (ABNORMAL) Blood Gas with Coox, Arterial (08/10/2011 11:59 AM TETRYL WRINGER OPERATOR) athologist Signature pO2 204 (H) 80 - 100 [facility] MM HG [facility] Comment: [place] pCO2 36 35 - 45 MM HG [facility] Comment: [place] pH 7.43 7.35 - 7.45 PH [facility] Comment: [place] Base Excess -1 -2 - 2 MMOL/L [facility] Comment: [place] HCO3 23 22 - 26 MMOL/L [facility] Comment: [place] Hb 9.4 (L) 13.5 - 17.5 G/DL [facility] Comment: [place] O2Hb 96.6 94.0 - 98.0 % [facility] Comment: [place] COHb <1.0 <3.0 % [facility] Comment: [place] MetHb <1.0 <1.6 % [facility] Comment: [place] CtO2 13.2 (L) 21.0 - 23.0 VOL % [facility] Comment: [place] Specimen Anatomical Collection Method Collection Time Receive d Time (Source) Location / / Volume Laterality 08/10/2011 11:59 08/10/2011 AM TETRYL WRINGER OPERATOR 11:59 AM TETRYL WRINGER OPERATOR Narrative [facility] - 08/10/2011 12:05 PM TETRYL WRINGER OPERATOR [place] Historical Provider LAB BLOOD NON ADD-ON Performing Organization Address City/[facility]/ZIP Code Phon e Number [facility] LABORATORIES - [address] [address] 05 [facility] (ABNORMAL) Calcium, Ionized (08/10/2011 11:59 AM TETRYL WRINGER OPERATOR) Patholo gist Method Time Signature Calcium, 3.78 (L) 4.65 - [facility] Ionized, B 5.30 LABORATORIES - MG/DL [facility] Comment: [place] Specimen Anatomical Collection Method Collection Time Receive d Time (Source) Location / / Volume Laterality 08/10/2011 11:59 08/10/2011 AM TETRYL WRINGER OPERATOR 11:59 AM TETRYL WRINGER OPERATOR Narrative [facility] - 08/10/2011 12:05 PM TETRYL WRINGER OPERATOR [place] Historical Provider LAB BLOOD NON ADD-ON Performing Organization Address City/[facility]/ZIP Code Phon e Number [facility] LABORATORIES - [address] [address] 05 [facility] (ABNORMAL) Sodium (08/10/2011 11:59 AM TETRYL WRINGER OPERATOR) P athologist Signature Sodium, B 129 (L) 135 - 145 [facility] MMOL/L [facility] Comment: [place] Specimen Anatomical Collection Method Collection Time Receive d Time (Source) Location / / Volume Laterality 08/10/2011 11:59 08/10/2011 AM TETRYL WRINGER OPERATOR 11:59 AM TETRYL WRINGER OPERATOR Narrative [facility] - 08/10/2011 12:05 PM TETRYL WRINGER OPERATOR [place] Historical Provider LAB BLOOD ADD-ON Performing Organization Address City/[facility]/ZIP [facility] Phon e Number [facility] LABORATORIES - [address] [address] 05 [facility] Glucose, Whole Blood (08/10/2011 11:59 AM TETRYL WRINGER OPERATOR) P athologist Signature Glucose, S 119 70 - 140 [facility] MG/DL [facility] Comment: [place] Specimen Anatomical Collection Method Collection Time Receive d Time (Source) Location / / Volume Laterality 08/10/2011 11:59 08/10/2011 AM TETRYL WRINGER OPERATOR 11:59 AM TETRYL WRINGER OPERATOR Narrative [facility] - 08/10/2011 12:05 PM TETRYL WRINGER OPERATOR [place] Historical Provider LAB BLOOD TROPONIN Performing Organization Address City/[facility]/ZIP Code Phon e Number [facility] LABORATORIES - [address] [address] 05 [facility] (ABNORMAL) Hemoglobin (HGB), POCT (08/10/2011 11:52 AM TETRYL WRINGER OPERATOR) [facility] Signature Hemoglobin, B 9.5 (L) 13.5 - [facility] 17.5 G/DL LAB[facility]ATORIES - [facility] Specimen Anatomical Collection Method Collection Time Receive d Time (Source) Location / / Volume Laterality 08/10/2011 11:52 08/10/2011 AM TETRYL WRINGER OPERATOR 11:52 AM TETRYL WRINGER OPERATOR Jung Vega Jr., M.D. LAB POCT ORDERABLES - DEVIC E Performing Organization Address City/[facility]/ZIP Code Phon e Number [facility] LABORATORIES - [address] [address] 05 [facility] Activated Clotting Time (08/10/2011 11:50 AM TETRYL WRINGER OPERATOR) P athologist Signature Activated 564 SEC [facility] Clotting Time, LABORATORIES - POCT [facility] Specimen Anatomical Collection Method Collection Time Receive d Time (Source) Location / / Volume Laterality 08/10/2011 11:50 08/10/2011 AM TETRYL WRINGER OPERATOR 11:50 AM TETRYL WRINGER OPERATOR Jung Vega Jr., M.D. LAB BLOOD ADD-ON Performing Organization Address City/[facility]/ZIP Code Phon e Number [facility] LABORATORIES - [address] [address] 05 [facility] Activated Clotting Time (08/10/2011 11:35 AM TETRYL WRINGER OPERATOR) P athologist Signature Activated 394 SEC [facility] Clotting Time, LABORATORIES - POCT [facility] Specimen Anatomical Collection Method Collection Time Receive d Time (Source) Location / / Volume Laterality 08/10/2011 11:35 08/10/2011 AM TETRYL WRINGER OPERATOR 11:35 AM TETRYL WRINGER OPERATOR Jung Vega Jr., M.D. LAB BLOOD ADD-ON Performing Organization Address City/[facility]/ZIP Code Phon e Number [facility] LABORATORIES - [address] [address] 05 [facility] HX intra-Op Auto Tx (08/10/2011 11:34 AM TETRYL WRINGER OPERATOR) Analysis Performed At Patho logist Time Signature HXRBC # UNITS 0.96 [facility] TRANSFUSED LABORATORIES [facility] HXRBC UNIT INFO RBC [facility] Comment: Component Type Intraoperative Salvaged R BC Unit Number =[id number] Issue Date/Time [id number] Specimen (Source) Anatomical Collection Method Collection Time Re ceived Time Location / / Volume Laterality 08/10/2011 11:34 AM TETRYL WRINGER OPERATOR Historical Provider LAB HISTORICAL ORDERS Performing Organization Address [facility] Phon e Number [facility] LABORATORIES - [address] [address] 05 [facility] Activated Clotting Time (08/10/2011 11:21 AM TETRYL WRINGER OPERATOR) athologist Signature Activated 396 SEC [facility] Clotting Time, LABORATORIES - POCT [facility] Specimen Anatomical Collection Method Collection Time Receive d Time (Source) Location / / Volume Laterality 08/10/2011 11:21 08/10/2011 AM TETRYL WRINGER OPERATOR 11:21 AM TETRYL WRINGER OPERATOR Jung Vega Jr., M.D. LAB BLOOD ADD-ON Performing Organization Address City/[facility] Phon e Number [facility] LABORATORIES - [address] [address] 05 [facility] Glucose, Whole Blood (08/10/2011 9:58 AM TETRYL WRINGER OPERATOR) athologist Signature Glucose, S 138 70 - 140 [facility] MG/DL [facility] Comment: [place] Specimen Anatomical Collection Method Collection Time Receive d Time (Source) Location / / Volume Laterality 08/10/2011 9:58 AM 2 9:58 TETRYL WRINGER OPERATOR AM TETRYL WRINGER OPERATOR Narrative [facility] - 08/10/2011 10:02 AM TETRYL WRINGER OPERATOR [place] Historical Provider LAB BLOOD TROPONIN Performing Organization Address City/[facility] Phon e Number [facility] LABORATORIES - [address] [address] 05 [facility] Sodium (08/10/2011 9:58 AM TETRYL WRINGER OPERATOR) athologist Signature Sodium, B 138 135 - 145 [facility] MMOL/L [facility] Comment: [place] Specimen Anatomical Collection Method Collection Time Receive d Time (Source) Location / / Volume Laterality 08/10/2011 9:58 AM 2 9:58 TETRYL WRINGER OPERATOR AM TETRYL WRINGER OPERATOR Narrative [facility] - 08/10/2011 10:01 AM TETRYL WRINGER OPERATOR [place] Historical Provider LAB BLOOD ADD-ON Performing Organization Address City/[facility] Code Phon e Number [facility] - [address] (ABNORMAL) Blood Gas with Coox, Arterial (08/10/2011 9:58 AM TETRYL WRINGER OPERATOR) athologist Signature pO2 373 (H) 80 - 100 [facility] MM HG [facility] Comment: [place] pCO2 38 35 - 45 MM HG [facility] Comment: [place] HCO3 22 22 - 26 MMOL/L [facility] Comment: [place] Hb 13.0 (L) 13.5 - 17.5 G/DL [facility] Comment: [place] MetHb 1.4 <1.6 % [facility] Comment: [place] CtO2 18.7 (L) 21.0 - 23.0 VOL % [facility] Comment: [place] pH 7.38 7.35 - 7.45 PH [facility] Comment: [place] Base Excess -3 (L) -2 - 2 MMOL/L [facility] Comment: [place] O2Hb 97.2 94.0 - 98.0 % [facility] Comment: [place] COHb 1.2 <3.0 % [facility] Comment: [place] Specimen Anatomical Collection Method Collection Time Receive d Time (Source) Location / / Volume Laterality 08/10/2011 9:58 AM 2 9:58 TETRYL WRINGER OPERATOR AM TETRYL WRINGER OPERATOR Narrative [facility] - 08/10/2011 10:02 AM TETRYL WRINGER OPERATOR [place] Historical Provider LAB BLOOD NON ADD-ON Performing Organization Address City/[facility] Code Phon e Number [facility] - [address] [address] 05 [facility] Calcium, Ionized (08/10/2011 9:58 AM TETRYL WRINGER OPERATOR) P athologist Signature Calcium, 4.81 4.65 - [facility] Ionized, B 5.30 MG/DL [facility] Comment: [place] Specimen Anatomical Collection Method Collection Time Receive d Time (Source) Location / / Volume Laterality 08/10/2011 9:58 AM 2 9:58 TETRYL WRINGER OPERATOR AM TETRYL WRINGER OPERATOR Narrative [facility] - 08/10/2011 10:02 AM TETRYL WRINGER OPERATOR [place] Historical Provider LAB BLOOD NON ADD-ON Performing Organization Address City/[facility] Phon e Number [facility] LABORATORIES - [address] [address] 05 [facility] Potassium, Blood (08/10/2011 9:58 AM TETRYL WRINGER OPERATOR) P athologist Signature Potassium, B 4.0 3.6 - 5.2 [facility] MMOL/L [facility] Comment: [place] Specimen Anatomical Collection Method Collection Time Receive d Time (Source) Location / / Volume Laterality 08/10/2011 9:58 AM 2 9:58 TETRYL WRINGER OPERATOR AM TETRYL WRINGER OPERATOR Narrative [facility] - 08/10/2011 10:02 AM TETRYL WRINGER OPERATOR [place] Historical Provider LAB BLOOD NON ADD-ON Performing Organization Address City/[facility] Code Phon e Number [facility] LABORATORIES - [address] [address] 05 [facility] (ABNORMAL) Hemoglobin (HGB), POCT (08/10/2011 9:55 AM TETRYL WRINGER OPERATOR) Patholo gist Method Time Signature Hemoglobin, B 13.1 (L) 13.5 - [facility] 17.5 G/DL [facility] Specimen Anatomical Collection Method Collection Time Receive d Time (Source) Location / / Volume Laterality 08/10/2011 9:55 AM 2 9:55 TETRYL WRINGER OPERATOR AM TETRYL WRINGER OPERATOR Jung Vega Jr., M.D. LAB POCT ORDERABLES - DEVIC E Performing Organization Address City/[facility] Phon e Number [facility] LABORATORIES - [address] [address] 05 [facility] Activated Clotting Time (08/10/2011 9:55 AM TETRYL WRINGER OPERATOR) P athologist Signature Activated 162 SEC [facility] Clotting Time, LABORATORIES - POCT [facility] Specimen Anatomical Collection Method Collection Time Receive d Time (Source) Location / / Volume Laterality 08/10/2011 9:55 AM 2 9:55 TETRYL WRINGER OPERATOR AM TETRYL WRINGER OPERATOR Иван Morris M.D. LAB BLOOD ADD-ON Performing Organization Address City/State/ZIP Code Phon e Number [facility] LABORATORIES - [address] [place] [address] [facility] documented in this encounter Visit Diagnoses Not on filedocumented in this encounter
--- OUTSIDE RECORDS SUMMARY | 2022-03-08 08:16 | XMS_ITS | Encounter Summary ---
:[address] [facility] Address [address] [place] [address] Care Team Providers Name Role Phone Unavailable Primary Care Provider Unavailable Encounter Details Date Type Department Care Team Description 09/14/2011 Hospital Encounter HX [facility] Jose Harris, PRACTICE P.A.-C. Social History Tobacco Use Types Packs/Day Years [...]
--- OUTSIDE RECORDS SUMMARY | 2022-03-08 08:16 | XMS_ITS | Encounter Summary ---
:1955 Author Organization [facility] Address [address] [place] [address] Care Team Providers Name Role Phone Unavailable Primary Care Provider Unavailable Encounter Details Date Type Department Care Team Description 05/23/2003 Hospital Encounter HX [facility] Wilton Pandey M.D. Social History Tobacco Use Types Packs/Day Years Used Date Smoking Tobacco: Never Assessed Sex Assigned at Date Recorded Not on file documented as of this encounter Plan of Treatment Not on filedocumented as of this encounter Visit Diagnoses Not on filedocumented in this encounter
--- OUTSIDE RECORDS SUMMARY | 2022-03-08 08:16 | XMS_ITS | Encounter Summary ---
:1955 Author Organization [facility] Address [address] [place] [address] Care Team Providers Name Role Phone Unavailable Primary Care Provider Unavailable Encounter Details Date Type Department Care Team Description 06/04/2003 Hospital Encounter HX [facility] Hillary Salazar M.D. [address] [place] [address] (Wo rk) Social History Tobacco Use Types Packs/Day Years Used Date Smoking Tobacco: Never Assessed Sex Assigned at Date Recorded Not on file documented as of this encounter Plan of Treatment Not on filedocumented as of this encounter Visit Diagnoses Not on filedocumented in this encounter
--- OUTSIDE RECORDS SUMMARY | 2022-03-08 08:16 | XMS_ITS | Encounter Summary ---
:1955 Author Organization [facility] Address [address] [place] [address] Care Team Providers Name Role Phone Unavailable Primary Care Provider Unavailable Encounter Details Date Type Department Care Team Description 07/18/2011 Hospital Encounter HX NO MAPPING Social History [...]
--- OUTSIDE RECORDS SUMMARY | 2022-03-08 08:16 | XMS_ITS | Encounter Summary ---
:1955 Author Organization [facility] Address [address] [place] [address] Care Team Providers Name Role Phone Unavailable Primary Care Provider Unavailable Encounter Details Date Type Department Care Team Description 07/19/2011 Hospital Encounter HX [facility] Edwin Conti PRACTICE M.D., D.Tip. Social History Tobacco Use Types Packs/Day Years [...]
--- OUTSIDE RECORDS SUMMARY | 2022-03-08 08:16 | XMS_ITS | Encounter Summary ---
:[address] [facility] Address [address] [place] [address] Care Team Providers Name Role Phone Unavailable Primary Care Provider Unavailable Encounter Details Date Type Department Care Team Description 04/08/2003 Hospital Encounter HX [facility] SURGERY Wilton Pandey M.D. Social History Tobacco Use Types Packs/Day Years Used Date Smoking Tobacco: Never Assessed Sex Assigned at Date Recorded Not on file documented as of this encounter Plan of Treatment Not on filedocumented as of this encounter Visit Diagnoses Not on filedocumented in this encounter
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
--- OUTSIDE RECORDS SUMMARY | 2022-03-08 08:16 | XMS_ITS | Encounter Summary ---
:1955 Author Organization [facility] Address [address] [place] [id number] Care Team Providers Name Role Phone Unavailable Primary Care Provider Unavailable Reason for Referral Outpatient (Routine) - Pending Review Specialty Diagnoses / Procedures Referred By Contact Refer red To Contact Colon and Rectal Diagnoses Diverticulitis With Abscess Criselda Burns, [facility] JL, Gerard.N.P., D.N.P., M.S.N. [address] [place] [phone] Referral ID Status Reason Start Date Expiration Date Visits V isits Requested Authorized [id number] Pending 12/23/2021 12/23/2022 1 1 Review Reason for Visit Auth/Cert Specialty Diagnoses / Procedures Referred By Contact Refer red To Contact Diagnoses Diverticulitis With Abscess DIVERTICULUM ABSCESS Procedures na Referral ID Status Reason Start Date Expiration Date Visits Requ ested Visits Authorized [id number] 1 1 Encounter Details Date Type Department Care Team Description 12/21/2021 - Hospital Encounter [facility] Mary Handley Diverti culitis With 12/23/2021 Don Chung M.D. Abscess (Primary Dx) [facility], [address] [facility], [facility] [address] Floor [phone] [address] [facility] (Work) [place], [place] [phone] (Fax) [phone] Social History Tobacco Use Types Packs/Day Years [...] Mass Index 25.05 12/21/2021 9:15 PM CDT documented in this encounter Discharge Summaries Criselda Burns APRN, C.N.P., D.N.P., M.S.N. - 12/23/2021 1:41 PM CDT DISCHARGE SUMMARY BRIEF OVERVIEW Hospital: [facility] Discharge Provider: Mary Handley M.D. Primary Team: RST Colon and Rectal Surgery - Ender No primary care provider on file. Primary Care Provider Phone Number: None Primary Care Provider Fax Number: None Other Providers: None Admission Date: 12/21/2021 Discharge Date: 12/23/21 PRINCIPAL DIAGNOSIS Diverticulitis With Abscess SECONDARY DIAGNOSES Principal Problem: Diverticulitis With Abscess Active Problems: Hypertensive Heart Disease Without Heart Failure Hyperlipidemia Repair Mitral Valve Status Post Resolved Problems: * No resolved hospital problems. * DISCHARGE DISPOSITION Home or Self Care [1] ACTIVE ISSUES REQUIRING FOLLOW UP The diverticulitis clinic will reach out to you to set up an appointment for follow up Please complete your antibiotic regimen in its entirety The fungal cultures from your aspiration fluid were pending at the time of discharge. You will be notified of these results if your antibiotics need to be changed OUTPATIENT FOLLOW UP For appointment details refer to your Patient Appointment Guide. TEST RESULTS PENDING AT DISCHARGE Pending Labs Order Current Status Bacterial Culture, Anaerobic + Susc In process Fungal Culture, Routine In process Bacterial Culture, Aerobic + Susc Preliminary result DETAILS OF HOSPITAL STAY REASON FOR ADMISSION Diverticulitis With Abscess HOSPITAL COURSE The patient was admitted to the hospital after presenting to the Emergency Department. CT of the abdomen was completed and demonstrated diverticulitis with abscess. The patient was made nothing by mouth and started on intravenous fluids and antibiotics. 3 cc of pericolonic fluid was aspirated from abdominal abscess and a drain ended up not needing to be placed. The patient's pain improved and diet was advanced. Prior to dismissal, the patient was transitioned to oral antibiotics. Aden Mulligan was admitted for diverticulitis. He was noted to be complicated diverticulitis. Thisis his first attack of diverticulitis. Date of last colonoscopy: 10/2015 You will be seen in the diverticulitis clinic in 6-8 weeks by a nurse practitioner. You will be notified of this appointment after leaving the hospital. If for any reason you need to reschedule or cancel this appointment you may do so by calling [phone]. Follow up will include a laboratory evaluation, possible CT scan (if indicated), and colonoscopy based on your last colonoscopy date. You may or may not need surgery. Your nurse practitioner will evaluate you in 6-8 weeks and decided if you need to meet with a surgeon. ADDITIONAL DIAGNOSES/COMPLICATIONS/CHRONIC CONDITIONS ADDRESSED DURING HOSPITALIZATION: Not Applicable CONSULTS ORDERED DURING THIS ADMISSION IP CONSULT TO DIETITIAN CONDITION AT DISCHARGE stable Discharge instructions were provided to the patient and caregiver(s). documented in this encounter Discharge Instructions AttachmentsThe following attachments cannot be sent through Care Everywhere. Oxycodone, Rapid Release (By mouth) (Armenian)Amoxicillin/Clavulanate Potassium (By mouth) (Armenian)Acetaminophen (By mouth) (Armenian)documented in this encounter Medications at Time of Discharge Medication Sig Dispensed Refills Start Date End Date acetaminophen Take 2 tablets (1,000 0 12/23/2021 (TYLENOL) 500 mg mg total) by mouth tablet every 6 (six) hours as needed for pain. aspirin [address] Take 81 mg by mouth 0 04/25/2011 tablet daily. atenoloL (TENORMIN) 25 Take 1 tablet (25 mg 0 mg tablet total) by mouth daily. Please follow up with your PCP. Your heart rate was in the mid 40's-50's during hospitalization and was held for a heart rate <50. Determine with PCP if atenolol should be resumed, discontinued, or dose adjusted. clopidogreL (PLAVIX) Take 75 mg by mouth 0 2021 75 mg tablet daily. ibuprofen Take 400 mg by mouth 0 (ADVIL,MOTRIN) 200 mg every 6 (six) hours as tablet needed for pain. lisinopriL Take 1 tablet by mouth 0 09/13/2021 (PRINIVIL,ZESTRIL) 20 daily. mg tablet oxyCODONE (ROXICODONE) Take 1 tablet (5 mg 6 tablet 0 12/10 5 mg immediate release total) by mouth every 4 tabletIndications: (four) hours as needed Acute Pain for moderate pain or score 4-6 of 10 (Take if pain is not relieved with Tylenol. Try to wean off over the next 3 days) Indication: Acute Pain. UNABLE TO FIND Take 1 each by mouth at 0 bedtime as needed (sleep). Med Name: Sleep aid (patient uncertain of active ingredient) amoxicillin-pot Take 1 tablet by mouth 25 tablet 0 12/24/19 22 01/05/2022 clavulanate every 12 (twelve) hours (AUGMENTIN) 875-125 mg for 25 doses per tabletIndications: Indications: Intra-abdominal Intra-abdominal infection, community infection, community acquired acquired. documented as of this encounter Progress Notes Criselda Burns APRN, C.N.P., D.N.P., M.S.N. - 12/23/2021 10:33 AM CDT SUBJECTIVE Patient is Hospital Day 2 with diverticulitis with abscess. Patient tolerating clear liquid diet andon IV fluids. Patient had CT guided aspiration of fluid from abscess yesterday and no drain was placed. Cultures were sent. Continues on IV ceftriaxone/flagyl. Urine output is adequate. Patient is passing flatus and stool. Pain is controlled on oral medications but notes continues left lower quadrant abdominal pain that is tender with palpation. Patient noted an increase in pain this morning around 0200 but was relived after oral narcotics. Ambulating with nursing staff. OBJECTIVE Ins and Outs - 290 cc oral intake yesterday - 590 cc urine output yesterday and already 1,500 cc urine output since midnight - 1 bowel movement yesterday and 1 this morning. Vitals: Temperature: [36.6 ??C-36.7 ??C] 36.6 ??C Heart Rate: [42-48] 48 Resp Rate: [12-37] 16 Blood Pressure: (118-168)/(62-99) 152/77 SpO2: [94 %-98 %] 94 % Pulse Rate: [43-50] 46 Vitals signs reviewed. Stable and afebrile. Patient is bradycardic with heart rate high 40's-60's. Patient is asymptomatic and will continue to monitor. Hold parameters were placed on home atenolol. Patient reports he has had a lower heart rate Physical Exam: ?? General Appearance: alert and oriented and no acute distress. Resting comfortably in bed ?? Abdomen: Soft, Tender to palpation in the left lower quadrant, not peritonitic. Abscess aspiration site on LLQ covered Labs Lab Results Component Value Date WBC 10.2 (H) 12/21/2021 Labs reviewed. No labs in the last 24 hours. ASSESSMENT / PLAN #1 Diverticulitis With Abscess - Continue IV ceftriaxone/flagyl. Resume general diet today. #2 Hypertensive Heart Disease Without Heart Failure - continue home atenolol with holding parametersin place, and lisinopril #3 Repair Mitral Valve Status Post - Plavix resumed. Heparin resumed. Continue aspirin Active Issues # Diverticulitis with Abscess - continue IV ceftriaxone and metronidazole. Advance diet today. Pending abscess cultures Comorbidities Present on Admission # See above Non-severe (moderate) Malnutrition (Per ASPEN guidelines for fat loss and po intake) The patient meets the ASPEN Criteria of malnutrition based on: ?? Average estimated Intake: Less than 75% for greater than 7 days ?? Weight Loss: Unable to Assess (Pt reported having some weight loss more recently. No weight hx toconfirm.) ?? Body Fat: Mild Loss This is in the context of Acute Illness or Injury. Malnutrition Present Upon Admission: Yes Agree with Registered Dietitian's assessment and treatment plan: Interventions: Other (currently NPO) Plan- Hospital Day 2, Diverticultis Pathway Protocol - Continues on IV ceftriaxone/flagyl. - Advance to general diet this morning and encourage small frequent meals - Abscess cultures pending - Will need to follow up in Diverticulitis clinic - Continue to monitor return of bowel function -Pain control with scheduled tylenol and PRN oral oxycodone - Anticipate discharge later today versus tomorrow pending ability to tolerate an oral diet -Encourage ambulation and deep breathing exercises DVT prophylaxis: Prophylactic heparin. Anticipated discharge date: 12/24/21??. Barrier to discharge is toleration of an oral diet Jenifer Harrison M.S., RDN, LD - 12/22/2021 11:53 AM CDT Clinical Nutrition: Initial Assessment Clinical Nutrition was requested to evaluate patient for positive nursing baseline nutrition screen with a MST score of 2 or greater SUBJECTIVE Mr. Mulligan is a 66 y.o. male admitted for Diverticulitis: Sigmoid and with abscess GI Related Hx: colonoscopy in 2016 1 polyp removed, no hx of diverticulitis Completed visit with patient today as part of face to face care. Current Nutrition (since admission): Pt currently NPO for drain placement. Per notes, will advance diet to clears after drain is placed. Pt was concerned about possibly losing weight if his diet did not advance after drain placement. Will continue to monitor for diet adv. Nutrition history: Pt reported following a regular diet at home. Pt stated he would usually eat a light breakfast, sandwich for lunch, and a well rounded dinner. Pt stated generally his appetite is good except for the week prior to admission. Pt stated the last time he ate something was monday night (12/20). Chewing/Swallowing Issues: Pt denied any issues with chewing or swallowing. OBJECTIVE Current nutrition orders: Current Diet No oral nutrition, no tube feeding starting at 12/21 2108 Pertinent Labs: reviewed Medications: reviewed Anthropometrics: Height: 165 cm Admission Weight: 68.2 kg (12/21/2021) Current Weight: 68.2 kg Adjusted Body Weight : 63 Kg BMI (Calculated): 25.1 kg/m?? Weight change since admission: 0 kg Weight Change History: Pt stated his usual weight is ~154lbs (~4lb loss, 2.5% loss, unsure of time frame). No weight hx in chart or care everywhere. Estimated Needs: Total Calorie Needs: 6202-5729 calories/day Method to Estimate Energy Needs: Herrera-Dickson (Basal to Basal + 10%) Weight Used for Equation Calculations: 68.2 kg Total Protein Needs: 68 - 82 grams/day (Method to Estimate Protein Needs (g/kg): 1 - 1.2 gm/kg) Weight Used to Calculate Protein Needs (Kg): 68.2 kg Nutrition Diagnosis: Malnutrition (undernutrition) (acute) related to diminshed intake as evidenced by pt reports of having decreased appetite for the past week, po intake meeting <75% for >/=7 days, and mild fat loss. Malnutrition Criteria: Average estimated Intake: Less than 75% for greater than 7 days Weight Loss: Unable to Assess (Pt reported having some weight loss more recently. No weight hx to confirm.) Body Fat: Mild Loss Nutritional Status: Non-severe (moderate) Malnutrition (Per ASPEN guidelines for fat loss and po intake) Malnutrition in the Context of: Acute Illness or Injury ASSESSMENT / PLAN Patient meets ASPEN/AND criteria for Non-severe (moderate) Malnutrition (Per ASPEN guidelines for fat loss and po intake) (12/22/2021 11:44 AM) See Nutrition Focused Physical Findings section for details. Nutrition Intervention: Interventions: Other (currently NPO). Recommendations: ??? No changes at this time; continue current nutrition orders Monitoring/Evaluation: Nutrition parameter to monitor: Diet Progression/NPO Status, Meals/Supplement Intake, Weight Status,Nausea/Vomiting/Diarrhea, Pertinent Labs Patient Goal(s): 1. Once diet advances, pt will have small frequent meals For questions about patient's nutritional care please contact pager [phone] on weekdays or [phone] on weekends/holidays. Criselda Burns APRN, C.N.P., D.N.P., M.S.N. - 12/22/2021 9:06 AM CDT SUBJECTIVE Patient is Hospital Day 1 with diverticulitis with abscess. Patient remains nothing to eat or drink on IV fluids. Plans to have a CT guided drain placement today. Will start patient on a clear liquid diet after drain placement. Continues on IV ceftriaxone/flagyl. Urine output is adequate. Patient is passing flatus but no bowel movement. Pain is controlled on oral medications but notes continues left lower quadrant abdominal pain that is tender with palpation. Ambulating with nursing staff. OBJECTIVE Ins and Outs - 140 cc urine output since midnight and 1 unmeasured occurrence - No bowel movements documented since admission Vitals: Temperature: [36.7 ??C-36.9 ??C] 36.8 ??C Heart Rate: [64] 64 Resp Rate: [16-18] 16 Blood Pressure: (118-169)/(61-93) 119/61 SpO2: [95 %-100 %] 100 % Pulse Rate: [48-64] 48 Vitals signs reviewed. Stable and afebrile. Patient is bradycardic with heart rate high 40's-60's. Patient is asymptomatic and will continue to monitor Physical Exam: ?? General Appearance: alert and oriented and no acute distress. Resting comfortably in bed ?? Abdomen: Soft, Tender to palpation in the left lower quadrant, not peritonitic. Labs Lab Results Component Value Date WBC 10.2 (H) 12/21/2021 Labs reviewed. Clincally signficant lab results include: CBC with mild leukocytosis of 10.2. Hemoglobin stable at 12.2 Basic Metabolic Panel benign with a stable creatinine of 1.03. K+3.9 ASSESSMENT / PLAN #1 Diverticulitis With Abscess - Will go for a CT guided drain placement this afternoon. Continue IVceftriaxone and metronidazole #2 Hypertensive Heart Disease Without Heart Failure - continue home atenolol and lisinopril #3 Repair Mitral Valve Status Post - Plavix held for drain placement. Heparin held. Continue aspirinokay'd with hematology oncology consultant Active Issues # Pain, poorly controlled - oral and IV medications used as needed. # Diverticulitis with Abscess - continue IV ceftriaxone and metronidazole. CT guided drain placementtoday Comorbidities Present on Admission # See above Plan- Hospital Day 1, Diverticultis Pathway Protocol - Continues on IV ceftriaxone/flagyl. - Continue IV fluids and NPO status - CT guided drain placement today - Will start clear liquid diet after drain placement - Heparin on hold and will resume after drain placement - Plavix on hold for drain placement - Will need to follow up in Diverticulitis clinic - Continue to monitor return of bowel function -Pain control with scheduled tylenol and PRN oral oxycodone -Encourage ambulation and deep breathing exercises DVT prophylaxis: Prophylactic heparin on hold for drain placement today. Will resume after drain placement Anticipated discharge date: 12/23/21-12/24/21??. Barrier to discharge is toleration of an oral diet, pain control on oral medications, drain plan. Mary Handley M.D. - 12/22/2021 8:49 AM CDT I met the patient this morning who was admitted overnight for complicated diverticulitis with an associated pericolonic abscess. He is feeling relatively well. He continues to have tenderness in the abdomen. He denies any nausea or vomiting. I reviewed the imaging which does show a pericolonic abscess in the mid to proximal sigmoid colon. The abscess is accessible for percutaneous drain but does have loops of small bowel adjacent to it medially. No evidence of free air or gross contamination of the abdomen. Abdomen is soft and appropriately tender in the left lower quadrant. We discussed medical and surgical management of diverticulitis. It would be in his best interest to avoid surgery during this acute hospitalization. Instead, we will attempt IR drain placement later today. We will then advance his diet as tolerated with hopeful discharge in the next 1-2 days. The drain will likely remain in place for at least 1 week and then will be studied to assess for fistula. If there is a persistent fistula, then he will almost certainly need an elective operation after recovery. If there is no persistent fistula, then we can discuss a watch and wait strategy versus a surgicalstrategy. We will set him up to be seen in the diverticulitis clinic a few weeks after discharge. I spent 15 minutes with the patient and in communication with the team. Raj aPtten, PharmKimberly., R.Ph. - 12/22/2021 7:14 AM CDT Pharmacist Progress Note Patient is a 66 y.o. 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 MAR Held: clopidogrel ?? Changed: n/a ?? Patient own medications: none Prophylaxis: SQH 5000 Q8H Wt 68.2 kg BMI 25.05 kg/m?? Review of Systems - ID: WBC 10.2, AF BAG BUILDER/DAS IAI ASSESSMENT / PLAN - Anticoagulation: Consider stopping SQH prior to procedure today and resuming tonight if patient remains in house, continues home aspirin 81 mg daily - Med Rec: Plavix MAR held - ID: Sinogram for abscess planned for this afternoon. Patient is AF and has mild leukocytosis on BAG BUILDER/DAS ongoing order with no allergies. Plan to determine EOT after sinogram and transition to orals when appropriate Changes to medications anticipated at discharge: possible antibiotics Raj Patten Pharm.D., R.Ph. Kaye Ojeda PharmLinda, R.Ph. - 12/21/2021 9:14 PM CDT Images from the original note were not included. Admission Medication History Note Adherence issues: No concerns Medication list source: Patient Medication related information: Patient noted he takes a generic sleep aid over the counter, but didn't know the active ingredient. He uses it most nights. Prior to Admission Medications Med List Status: Pharmacy Complete Set By: Kaye Ojeda, Pharm.DGodwin, R.Ph. at 12/21/2021 9:14 PM Taking? Last Dose Informant Start Date End Date LT aspirin [address] tablet 12/21/2021 04/25/11 -- Take 81 mg by mouth daily. atenoloL (TENORMIN) 25 mg tablet 12/21/2021 09/13/21 -- Take 25 mg by mouth daily. clopidogreL (PLAVIX) 75 mg tablet 12/21/2021 09/13/21 -- Take 75 mg by mouth daily. ibuprofen (ADVIL,MOTRIN) 200 mg tablet 12/20/2021 -- -- Take 400 mg by mouth every 6 (six) hours as needed for pain. lisinopriL (PRINIVIL,ZESTRIL) 20 mg tablet 12/21/2021 09/13/21 -- Take 1 tablet by mouth daily. UNABLE TO FIND 12/20/2021 -- -- Take 1 each by mouth at bedtime as needed (sleep). Med Name: Sleep aid (patient uncertain of activeingredient) documented in this encounter H&P Notes Alyse Luciano APRN, C.N.P., D.N.P. - 12/21/2021 9:09 PM CDT SUBJECTIVE Chief Complaint Aden Mulligan is an 66 y.o. male admitted for Diverticulitis: Sigmoid and with abscess History of Present Illness 66-year-old male with history of hypertension, status post mitral valve repair 08/10/2011 ([facility]) andstatus post hernia repair (1999) who presented to ED with left lower quadrant abdominal pain. CT wasperformed showing diverticulitis with 3.7 cm abscess. Patient was transferred from outside hospital for access to IR intervention. On arrival patient states pain is 1-2 /10 except when doing activity. He reports he has had symptomsof left lower quadrant pain for several weeks that progressively became longer episodes. He was selftreating with ibuprofen and bowel laxative for increasing constipation. Last Monday he had 10/10 pain and so [facility] He ended up going to urgent care today who sent him to ED. He has no history of diverticulitis. He did have a colonoscopy 10-19-2015 at [facility] with 1 polyp removed. He denies having had any fever or chills. He has had no hematochezia or melena. He has had slower urine stream but no dysuria or pyuria. He only doctors for hypertension and has been doing great since his mitral valve repair here at [facility]. Review of Systems Pertinent items are noted in HPI; all other review of systems was negative. OBJECTIVE Vitals Weight: 68.2 kg, Blood Pressure: (!) 169/81, Pulse Rate: 60, Resp Rate: 18, Temperature: 36.7 ??C, SpO2: 95 % Physical Exam General Appearance: alert and oriented and mild distress Abdomen: tender left lower quadrant to deep palpitation, non distended Diagnostics CT scan: focal segmental thickening and pericolonic inflammation of the mid sigmoid colon consistent with diverticulitis with contained abscess along the anti mesenteric border measuring 3.7 centimeters. WBC 10.5 CRP 14 Assessment/Plan The patient's current conditions treated, managed, or evaluated during the inpatient stay include: #1 Diverticulitis With Abscess #2 Hypertensive Heart Disease Without Heart Failure #3 Status post mitral valve repair 2011. Diverticulitis pathway -NPO and IVFs -IV Ceftriaxone and flagyl -IR to assess to see if drain possible tomorrow -Heparin DVT prophylaxis -Pain control with scheduled tylenol and PRN oxycodone and IV Ketoralac documented in this encounter Nursing Notes Trixie Davis R.N. - 12/23/2021 3:15 PM CDT Shift Goals: Clinical Goals for the Shift: pain control Identify possible barriers to meeting goals/advancing plan of care: none End of Shift Summary: Patient meets discharge criteria and was discharged to home self care. Problem: PAIN - ADULT Goal: PT VERBALIZES/DEMONSTRATES ADEQUATE COMFORT LEVEL OR BASELINE Outcome: Completed Problem: KNOWLEDGE DEFICIT Goal: Patient/family/caregiver demonstrates understanding of disease process, treatment plan, medications, and discharge instructions Outcome: Completed Problem: INFECTION - ADULT Goal: Absence of infection during hospitalization Outcome: Completed Problem: SKIN/TISSUE INTEGRITY Goal: Skin/Tissue integrity maintained or improved Outcome: Completed Goal: Oral and Nasal mucous membranes remain intact Outcome: Completed Problem: SAFETY ADULT Goal: Maintain a safe environment Outcome: Completed Problem: DISCHARGE PLANNING Goal: Patient discharge needs identified Outcome: Completed Problem: SAFETY ADULT - RISK FOR FALL AND OR FALL INJURY Goal: Patient remains free from fall/fall injury Outcome: Completed Rosa Sepulveda R.N. - 12/22/2021 6:17 PM CDT Shift Goals: Clinical Goals for the Shift: Pain control, bowel rest Identify possible barriers to meeting goals/advancing plan of care: Tolerating oral diet, stable bowel function, pain control End of Shift Summary: Patient's pain remained a 4/10 throughout the morning, but improved once he returned from his CT fluid aspiration. Patient now rating pain 0-2/10 and states it is well controlled with his current medication regimen. Diet advanced to clear liquids after CT today with specific instructions from sx to go slow with oral intake. Patient is passing gas and has had a BM today. Electronically signed by: Rosa Sepulveda R.N. 12/22/21 6:18 PM CDT Problem: PAIN - ADULT Goal: PT VERBALIZES/DEMONSTRATES ADEQUATE COMFORT LEVEL OR BASELINE Outcome: Progressing Problem: KNOWLEDGE DEFICIT Goal: Patient/family/caregiver demonstrates understanding of disease process, treatment plan, medications, and discharge instructions Outcome: Progressing Problem: INFECTION - ADULT Goal: Absence of infection during hospitalization Outcome: Progressing Problem: SKIN/TISSUE INTEGRITY Goal: Skin/Tissue integrity maintained or improved Outcome: Progressing Goal: Oral and Nasal mucous membranes remain intact Outcome: Progressing Problem: SAFETY ADULT Goal: Maintain a safe environment Outcome: Progressing Problem: DISCHARGE PLANNING Goal: Patient discharge needs identified Outcome: Progressing Problem: SAFETY ADULT - RISK FOR FALL AND OR FALL INJURY Goal: Patient remains free from fall/fall injury Outcome: Progressing Aggie Mendez R.N. - 12/22/2021 5:24 AM CDT Shift Goals: Clinical Goals for the Shift: Rest, Pain control, VSS Identify possible barriers to meeting goals/advancing plan of care: Abscess/Pain End of Shift Summary: Pt arrived on unit at 1999 on 12/21. Pt was admitted for diverticulitis and abscess that needs to be drained. Pt pain was well managed with medication. Pt is tolerating antibiotics. Pt rested well over night. Pt is using the urinal appropriately and is tolerating ambulation independently. Problem: PAIN - ADULT Goal: PT VERBALIZES/DEMONSTRATES ADEQUATE COMFORT LEVEL OR BASELINE Outcome: Progressing Problem: KNOWLEDGE DEFICIT Goal: Patient/family/caregiver demonstrates understanding of disease process, treatment plan, medications, and discharge instructions Outcome: Progressing Problem: INFECTION - ADULT Goal: Absence of infection during hospitalization Outcome: Progressing Problem: SKIN/TISSUE INTEGRITY Goal: Skin/Tissue integrity maintained or improved Outcome: Progressing Goal: Oral and Nasal mucous membranes remain intact Outcome: Progressing Problem: SAFETY ADULT Goal: Maintain a safe environment Outcome: Progressing Problem: DISCHARGE PLANNING Goal: Patient discharge needs identified Outcome: Progressing Problem: SAFETY ADULT - RISK FOR FALL AND OR FALL INJURY Goal: Patient remains free from fall/fall injury Outcome: Progressing documented in this encounter Miscellaneous Notes Documentation Clarification - Criselda Burns APRN, C.N.P., D.N.P., M.S.N. - 12/22/2021 1:57 PM CDT PROVIDER RESPONSE TEXT: To clarify, the appropriate diagnosis supported by the clinical indicators: Moderate Malnutrition, I agree with Dietary Assessment and Treatment plan, which includes: Monitoring Diet progression/NPO Status, meals/supplement intake, weight status, nausea/vomiting/diarrhea and pertinent labs. Small frequent meals, once diet advances <LCI> QUERY TEXT: DOCUMENTATION CLARIFICATION REQUEST Please clarify/specify the appropriate diagnosis supported in the clinical indicators below. [[Moderate Malnutrition, I agree with Dietary Assessment and Treatment plan, which includes: Monitoring Diet progression/NPO Status, meals/supplement intake, weight status, nausea/vomiting/diarrhea and pertinent labs. Small frequent meals, once diet advances]] Other (explain) Clinically unable to determine (explain) Clinical Indicators/Risk Factors/Treatment: - 12/21 H&P (Ankita): Aden Mulligan is a 66 yo male admitted for sigmoid diverticulitis with abscess. Medical history includes hypertension, mitral valve repair and hernia repair. - 12/22 Nutritional Consult (Meima, RDN): Moderate Malnutrition, acute, related to diminished intake as evidenced by pt reports of having decreased appetite for the past week, po intake <75% for >/=7 days, and mild fat loss. Interventions: Other (currently NPO). Nutrition parameter to monitor: Diet Progression/NPO Status, Meals/Supplement Intake, Weight Status,Nausea/Vomiting/Diarrhea, Pertinent Labs Please contact me if you have questions. Thank you, Jessica Quezada R.N., [facility] Clinical Documentation Dean Of Education Query created by: Jessica Quezada R.N., CCDS 12/22/2021 01:43 PM CDT </LCI> Hospital Course - Criselda Burns APRN, C.N.P., Vinh, M.S.N. - 12/21/2021 9:26 PM CDT The patient was admitted to the hospital after presenting to the Emergency Department. CT of the abdomen was completed and demonstrated diverticulitis with abscess. The patient was made nothing by mouth and started on intravenous fluids and antibiotics. 3 cc of pericolonic fluid was aspirated from abdominal abscess and a drain ended up not needing to be placed. The patient's pain improved and diet was advanced. Prior to dismissal, the patient was transitioned to oral antibiotics. Aden Mulligan was admitted for diverticulitis. He was noted to be complicated diverticulitis. Thisis his first attack of diverticulitis. Date of last colonoscopy: 10/2015 You will be seen in the diverticulitis clinic in 6-8 weeks by a nurse practitioner. You will be notified of this appointment after leaving the hospital. If for any reason you need to reschedule or cancel this appointment you may do so by calling [phone]. Follow up will include a laboratory evaluation, possible CT scan (if indicated), and colonoscopy based on your last colonoscopy date. You may or may not need surgery. Your nurse practitioner will evaluate you in 6-8 weeks and decided if you need to meet with a surgeon. ADDITIONAL DIAGNOSES/COMPLICATIONS/CHRONIC CONDITIONS ADDRESSED DURING HOSPITALIZATION: Not Applicable documented in this encounter Plan of Treatment Scheduled Referrals Name Type Priority Associated Diagnoses Order S chedule Colon and Rectal Outpatient Routine Diverticulitis With Expe cted: Surgery - Referral Abscess 02/02/2022, Diverticulitis consult Expir es: (clinic) 03/25/2023 documented as of this encounter Procedures Procedure Name Priority Date/Time Associated Comments Diagnosis CT ABSCESS OR RAD - Routine 12/22/2021 3:19 Results fo r this HEMATOMA OR CYST (most inpatients PM CDT procedu re are in ASPIRATION and all the results outpatients) section. BACTERIAL CULTURE, Timed 12/22/2021 2:42 Result s for this AEROBIC + SUSC PM CDT procedure are in the results section. FUNGAL SMEAR Timed [...] procedure a re in the results section. ADULT OXYGEN Routine 12/22/2021 2:40 THERAPY PM CDT CBC WITH Routine 12/21/2021 11:37 Results for this DIFFERENTIAL, B PM CDT procedure ar e in the results section. BASIC METABOLIC Routine 12/21/2021 11:37 Results for this PANEL, S/P PM CDT procedure are i n the results section. documented in this encounter Results CT Abscess or Hematoma or Cyst Aspiration (12/22/2021 3:19 PM CDT) Anatomical Region Laterality Modality Abdominal RST LOS, Vascular N/A Computed Rolf ography, Computed Interventional ARZ LOS, Procedural, Andi [...] approach. Initial attempt to place a 10 Lao ReSolve Mini drain into the loosely organized pericolonic fluid was unsuccessful due t o the small size of the collection. Therefore, a 17-gauge introducer was used to aspirate 3 mL of fluid, which was sent for analysis. This was discussed after the procedure with Criselda Burns APRN ([id number]). ?? TARGET LOCATION: Small amount of loosely [...] approach. Initial attempt to place a 10 Lao ReSolve Mini drain into the loosely organized pericolonic fluid was unsuccessful due t o the small size of the collection. Therefore, a 17-gauge introducer was used to aspirate 3 mL of fluid, which was sent for analysis. This was discussed after the procedure with rCiselda Burns APRN ([id number]). TARGET LOCATION: Small amount of loosely organized [...] loosely organi zed pericolonic fluid pocket. NR Alyse Luciano APRN, C.N.P., D.N.P. IMG CT PROCEDURES Bacterial Culture, Anaerobic + Susc (12/22/2021 2:42 PM CDT) [facility] gist Method Time Signature Bacterial No growth 12/29/2021 DTL Culture, after 7 7:22 AM CDT Anaerobic + days of Susc incubation. Specimen Anatomical Collection Method Collection Time Receive d Time (Source) Location / / Volume Laterality Fluid (Abdomen) 12/22/2021 2:42 PM 2021 6:20 CDT PM CDT Comment: Specimen Source Site: Fluid Gerard Colmenares APRN.N.P., D.N.P. LAB MICROBIOLOGY - GENERAL ORDERABLES Performing Organization Address City/[facility]/ZIP Code Phon e Number [facility] - [address] [place], [place] [address] [place] [address] [facility] [address] [facility] Fungal Smear (12/22/2021 2:42 PM CDT) athologist Signature Fungal Smear Negative. 12/23/2021 DTL 8:49 AM CDT Specimen Anatomical Collection Method Collection Time Receive d Time (Source) Location / / Volume Laterality Fluid (Abdomen) 12/22/2021 2:42 PM 2021 6:20 CDT PM CDT Comment: Specimen Source Site: Fluid Gerard Colmenares APRN.N.P., D.N.P. LAB MICROBIOLOGY - GENERAL ORDERABLES Performing Organization Address City/[facility]/ZIP Code Phon e Number [facility] - [address] [place], [place] [address] [place] [address] [facility] [address] [facility] Fungal Culture, Routine (12/22/2021 2:42 PM CDT) [facility] gist Method Time Signature Fungal No growth [...] Organization Address City/State/ZIP Code Phon e Number [facility] - [address] [place] [phone] [facility] [place] [address] Laboratories-[address] (ABNORMAL) Gram Stain (12/22/2021 2:42 PM CDT) Analysis Performed At Patho logist Time Signature Gram Stain White blood 12/22/2021 DTL cells, Many. 10:36 PM CDT (A) Gram Stain GRAM POSITIVE COCCI 12/22/2021 DTL Many. 10:36 PM CDT (A) Comment: Semi-Urgent Result. Semi-Urgent This is a semi-urgent result [facility] - ([place]) [facility] Specimen Anatomical Collection Method Collection Time Receive d Time (Source) Location / / Volume Laterality Fluid (Abdomen) 12/22/2021 2:42 PM 2021 6:20 CDT PM CDT Comment: Specimen Source Site: Fluid Alyse Luciano APRN, C.N.P., D.N.P. LAB MICROBIOLOGY - GENERAL ORDERABLES Performing Organization Address City/[facility] Code Phon e Number [facility] - [address] [place] [phone] [facility] [place] [address] [facility]-[address] (ABNORMAL) Bacterial Culture, Aerobic + Susc (12/22/2021 2:42 PM CDT) Patholo gist Method Time Signature Bacterial ESCHERICHIA COLI 12/25/2021 DTL Culture, 4+ 2:45 PM CDT Aerobic + (A) Susc Comment: Semi-Urgent Result. Bacterial Culture, Aerobic STREPTOCOCCUS INTERMEDIUS 12/25/2021 2:45 PM CDT DTL + Susc 4+ (A) Comment: Susceptibilities not performed per laboratory criteria. Semi-Urgent This is a semi-urgent result [facility] [place] ([place]) [facility] Specimen Anatomical Collection Method Collection Time [...] (MCG/ML) Escherichia coli Amikacin SUSCEPTIBILITY, <=8 mcg/mL: Idanai ceptible OSVALDO (MCG/ML) Escherichia coli Gentamicin SUSCEPTIBILITY, >8 mcg/mL: Resi stant OSVALDO (MCG/ML) Escherichia coli Tobramycin SUSCEPTIBILITY, >8 mcg/mL: Resi stant OSVALDO (MCG/ML) Escherichia coli Aztreonam SUSCEPTIBILITY, <=4 mcg/mL: Idania ceptible OSVALDO (MCG/ML) Escherichia coli Trimethoprim + SUSCEPTIBILITY, <=0.5/9.5 mcg/m L: Sulfamethoxazole OSVALDO (MCG/ML) Susceptible Alyse Luciano APRN, C.N.P., D.N.P. LAB MICROBIOLOGY - GENERAL ORDERABLES Performing Organization Address City/State/ZIP Code Phon e Number [facility] - [address] [place] [phone] [facility] [address] Laboratories-[facility] [address] [facility] (ABNORMAL) CBC with Differential, Blood (12/21/2021 11:37 PM CDT) [facility] Method Time Signature Hemoglobin 12.2 (L) 13.2 [...] 12/22/2021 Venous) PM CDT 12:59 AM CDT Alyse Luciano APRN C.N.P., D.N.P. LAB BLOOD ADD-ON Performing Organization Address City/State/ZIP Code Phon e Number [facility] - [address] [place], [place] [address] [facility] [place] [address] Laboratories-[facility] [address] (ABNORMAL) Basic Metabolic Panel (12/21/2021 11:37 PM [...] 12/22/2021 DTL Black/ mL/min/BSA 1:25 AM CDT Azerbaijani Comment: ----ADDITIONAL INFORMATION---- Estimated GFR calculated using [...] Organization Address City/State/ZIP Code Phon e Number [facility] - [address] [place], [place] [address] [facility] [place] [address] Laboratories-[facility] [address] documented in this encounter Visit Diagnoses Diagnosis Diverticulitis With Abscess - Primary Hypertensive Heart Disease Without Heart Failure Repair Mitral Valve Status Post Hyperlipidemia documented in this encounter Admitting Diagnoses Diagnosis Diverticulitis With Abscess documented in this encounter Administered Medications Inactive Administered Medications - up to 3 most recent administrations Medication Order MAR Action Action Date Dose Rate Site acetaminophen tablet 1,000 mg Given 12/23/2021 12:17 PM CDT 1,00 0 mg (TYLENOL) 1,000 mg, oral, 4 times daily, First dose on Mon12/21/21 at 2130 Given 12/23/2021 7:58 AM CDT 1,000 mg Given 12/22/2021 9:27 PM CDT 1,000 mg amoxicillin-pot clavulanate 875-125 mg p er tablet 1 tablet (AUGMENTIN) 1 tablet, oral, Every 12 hours scheduled , First dose on Mon12/23/21 at 2100, For 13 days, Drug Monitoring Program: Pharmacist to adjust me dication dosing based on indication and drug clearance factors., Indications: I ntra-abdominal infection, community acquired aspirin DR tablet 81 mg Given 12/23/2021 8:02 AM CDT 81 mg 81 mg, oral, Daily, First dose on Mon12/22/21 at 0900, Swallow whole. Do NOT crush, chew, or split tablet. Given 12/22/2021 9:28 AM CDT 81 mg atenoloL tablet 25 mg (TENORMIN) Given 12/22/2021 9:28 AM CDT 25 mg 25 mg, oral, Daily, First dose on Mon12/22/21 at 0900, Please hold if heart rate is <50 bpm cefTRIAXone in dextrose (iso-osm) IVPB New Bag 12/22/2021 9:32 PM CDT 2 g 200 mL/hr 2 g (ROCEPHIN) 2 g, intravenous, at 200 mL/hr, Administer over 15 Minutes, Every 24 hours, First dose on Mon12/21/21 at 2200, Drug Monitoring Program: Pharmacist to adjust medication dosing based on indication and drug clearance factors., Indications: Intra-abdominal infection, community acquired New Bag 12/22/2021 12:12 AM CDT 2 g 200 mL/hr clopidogreL tablet 75 mg (PLAVIX) Given 12/23/2021 8:02 AM CDT 75 mg 75 mg, oral, Daily, First dose on Mon12/22/21 at 0900 fentaNYL injection 25 mcg (SUBLIMAZE) Given 12/22/2021 3:07 PM CDT 25 mcg 25 mcg, intravenous, Every 2 min PRN, sedation, or pain before and during sedation procedure, Starting on Mon12/22/21 at 1440, Intraprocedure (RAD), Administer over 1 minute immediately prior to the procedure. May repeat every 2 minutes to a maximum of 200 mcg, until pain score of 3 or less from baseline. Do not give if respiratory rate is less than 8 breaths/minute Given 12/22/2021 3:03 PM CDT 25 mcg Given 12/22/2021 2:59 PM CDT 50 mcg heparin (porcine) Given 12/22/2021 5:10 AM CDT 5,000 Units Right Upper Arm injection 5,000 Units (Back) 5,000 Units, subcutaneous, Every 8 hours scheduled, First dose on Mon12/21/21 at 2200 Given 12/21/2021 10:41 PM CDT 5,000 Units Righ t Upper Arm (Back) heparin (porcine) Given 12/23/2021 6:51 AM CDT 5,000 Units Left Upper Arm injection 5,000 Units (Back) 5,000 Units, subcutaneous, Every 8 hours scheduled, First dose on Mon12/22/21 at 2200 Given 12/22/2021 9:27 PM CDT 5,000 Units Right Upper Arm (Back) ketorolac injection 15 mg (TORADOL) Given 12/22/2021 5:10 AM CDT 15 mg 15 mg, intravenous, Every 6 hours PRN, severe pain or score 7-10 of 10, Starting on Mon12/21/21 at 2108, For 2 doses, Do not administer if urine output less than 20 mL/hour for 2 consecutive hours Adult IV push rate: Over 15 seconds. Peds IV push rate: Over 1 minute. 60 mg dose only for IM, not recommended for IV. lidocaine 10 mg/mL (1 %) injection (XYLO ASIA) Given 12/22/2021 3:14 PM CDT 8 mL Code/trauma/sedation medication, Starting on Mon12/22/21 at 1514 lisinopriL tablet 20 mg (PRINIVIL,ZESTRI L) Given 12/23/2021 8:02 AM CDT 20 mg 20 mg, oral, Daily, First dose on Mon12/22/21 at 0900 Given 12/22/2021 9:28 AM CDT 20 mg metroNIDAZOLE in NaCl (iso-osm) New Bag 12/23/2021 6:51 AM CDT 500 mg 200 mL/hr IVPB 500 mg (FLAGYL) 500 mg, intravenous, at 200 mL/hr, Administer over 30 Minutes, Every 8 hours, First dose on Mon12/21/21 at 2200, Indications: Intra-abdominal infection, community acquired New Bag 12/22/2021 9:53 PM CDT 500 mg 200 mL/hr New Bag 12/22/2021 3:30 PM CDT 500 mg 200 mL/hr midazolam (PF) injection 0.5 mg (VERSED) Given 12/22/2021 3:07 PM CDT 0.5 mg 0.5 mg, intravenous, Once as needed, sedation, Starting on Mon12/22/21 at 1440, For 1 dose, Intraprocedure (RAD) midazolam (PF) injection 0.5 mg (VERSED) Given 12/22/2021 3:04 PM CDT 0.5 mg 0.5 mg, intravenous, Every 2 min PRN, sedation, RASS -1, Starting on Mon12/22/21 at 1440, Intraprocedure (RAD), May repeat every 2 minutes for a maximum of 5 mg. Do not give if respiratory rate is less than 8 breaths/minute. midazolam (PF) injection 1 mg (VERSED) Given 12/22/2021 3:00 PM CDT 1 mg 1 mg, intravenous, Every 2 min PRN, sedation, RASS 0, Starting on Mon12/22/21 at 1440, Intraprocedure (RAD), May repeat every 2 minutes for a maximum of 5 mg. Do not give if respiratory rate is less than 8 breaths/minute. NaCl 0.45 % infusion Restarted 12/22/2021 10:47 PM CDT 60 mL/hr 60 mL/hr 60 mL/hr, intravenous, Continuous, Starting on Mon12/21/21 at 2145 New Bag 12/22/2021 6:12 PM CDT 60 mL/hr 60 mL/hr Restarted 12/22/2021 4:00 PM CDT 60 mL/hr 60 mL/hr naloxone injection 0.2 mg (NARCAN) 0.2 mg, intravenous, As needed, respirat ory depression, Starting on Mon12/21/21 at 210, For RASS Score -4 or less, respiratory rate of l ess than 8 breaths/min. Notify provider/service and rapid response team (if av ailable at institution). oxyCODONE IR tablet 10 mg (ROXICODONE) Given 12/23/2021 3:24 AM CDT 10 mg 10 mg, oral, Every 4 hours PRN, severe pain or score 7-10 of 10, Starting on Mon12/21/21 at 2108, or for pain greater than comfort goal oxyCODONE IR tablet 5 mg (ROXICODONE) 5 mg, oral, Every 4 hours PRN, moderate pain or score 4-6 of 10, Starting on Mon12/21/21 at 8 sodium chloride 0.9 % injection 10 mL 10 mL, intravenous, As needed, line care, Starting on Mon12/21/21 at 2107, Peripheral Intravenous Catheter and Rapid Infusion Cat heter, prior to blood sampling, post blood transfusion or post blood samplin g sodium chloride 0.9 % injection 3 mL 3 mL, intravenous, As needed, line care, Starting on Mon12/21/21 at 2108, Prior to and following infusion and between multi ple consecutive infusions: sodium chloride 0.9 % injection sodium chloride 0.9 % injection 3 mL Given 12/22/2021 9:27 PM CDT 3 mL 3 mL, intravenous, Every 12 hours scheduled, First dose on Mon12/22/21 at 0900, Peripheral Intravenous Catheter and Rapid Infusion Catheter, when no infusion to maintain patency documented in this encounter Active and Recently Administered Medications Times are shown in CDT. Scheduled Medication Order 12/21/2021 12/22/2021 12/23/2021 acetaminophen tablet 1,000 mg (TYLENOL) 7742 (Given - Provider: Aggie Mendez RChristina.) 7534 (Given - Provider: Rosa Sepulveda R.N.)0093 (Given - Provider: Barbara Nettles - Comment: given 4hrs after last dose)5576 (Given - Provider: Trixie Davis RChristina.)9479 (Given - Provider: Tawny Blas R.N.) 0758 (Given - Provider: Jerry Beaulieu R.N.)1217 (Given - Provider: Trixie Davis R.N.) 1,000 mg, oral, 4 times daily, First dose on Mon12/21/21 at 2130 amoxicillin-pot clavulanate 875-125 mg per tablet 1 tablet ( ENTIN) 1 tablet, oral, Every 12 hours scheduled , First dose on Mon12/23/21 at 2100, For 13 days, Drug Monitoring Program: Pharmacist to adjust medication dosing based on indication and drug clearance factors., Indications: Intra-abdominal infection, community acquired aspirin DR tablet 81 mg 0928 (Given - Provider: Rosa Sepulveda R.N.) 0802 (Given - Provider: Jerry Beaulieu R.N.) 81 mg, oral, Daily, First dose on Mon at 0900, Swallow whole. Do NOT crush, chew, or split tablet. atenoloL tablet 25 mg (TENORMIN) 0928 (Given - P rovider: Rosa Sepulveda R.N.) 0803 (Not Given - Provider: Jerry Beaulieu R.N. - Reason: Contraindicated) 25 mg, oral, Daily, First dose on Mon at 0900, Please hold if heart rate is <50 bpm cefTRIAXone in dextrose (iso-osm) IVPB 2 g (ROCEPHIN) (CANCE LED) 11 (New Bag - Provider: Aggie Mendez R.N.)2131 (New Bag - Provider: Tawny Blas R.N.) 2 g, intravenous, at 200 mL/hr, Administ er over 15 Minutes, Every 24 hours, First dose on Mon12/21/21 at 2200, Drug Monitoring Program: Pharmacist to adjust medication dosing based on indication and clinton g clearance factors., Indications: Intra -abdominal infection, community acquired clopidogreL tablet 75 mg (PLAVIX) 2128 (Held by [facility] er - Provider: Alyse Luciano APRN, C.N.P., D.N.P. - Reason: Other - Comment: Drain procedure) 0900 (Not Given - Provider: Rosa Sepulveda R.N. - Reason: See Provider Order - Comment: Held by provider)1706 (Unheld by provider - Provider: Alyse Luciano APRN, C.N.P., D.N.P.) 0802 (Given - Provider: Jerry Beaulieu R.N.) 75 mg, oral, Daily, First dose on Mon12/22/21 at 0900 heparin (porcine) injection 5,000 Units (CANCELED) 224 1 (Given - Provider: Aggie Mendez R.N.) 0510 (Given - Provider: Aggie Mendez R.N.) 5,000 Units, subcutaneous, Every 8 hours scheduled, First dose on Mon12/21/21 at 2200 heparin (porcine) injection 5,000 Units 2127 (Given - Provider: Tawny Blas R.N.) 0651 (Given - Provider: Jerry Beaulieu R.N.)1410 (Not Given - Provider: Trixie Davis R.N. - Reason: Patient/family refused) 5,000 Units, subcutaneous, Every 8 hours scheduled, First dose on Mon12/22/21 at 2200 lisinopriL tablet 20 mg (PRINIVIL,ZESTRIL) 0928 (Given - Provider: Rosa Sepulveda R.N.) 0802 (Given - Provider: Jerry Beaulieu R.N.) 20 mg, oral, Daily, First dose on Mon12/22/21 at 0900 metroNIDAZOLE in NaCl (iso-osm) IVPB 500 mg (FLAGYL) ( CANCELED) 2241 (New Bag - Provider: Aggie Mendez R.N.) 0510 (New Bag - Provider: Aggie Mendez R.N.)1530 (New Bag - Provider: Rosa Sepulveda R.N.)2153 (New Bag - Provider: Jerry Beaulieu R.N.) 0651 (New Bag - Provider: Jerry hester R.N.) 500 mg, intravenous, at 200 mL/hr, Admin ister over 30 Minutes, Every 8 hours, First dose on Mon12/21/21 at 2200, Indications: Intra-abdominal infection, community acquired sodium chloride 0.9 % injection 3 mL 092 9 (Not Given - Provider: Rosa Sepulveda R.N. - Reason: Order parameters not met - Comment: PIV infusing)2127 (Given - Provider: Tawny Blas R.N.) 0803 (Not Given - Provider: Jerry Beaulieu R.N. - Reason: Contraindicated - Comment: iv infusing) 3 mL, intravenous, Every 12 hours schedu led, First dose on Mon12/22/21 at 0900, Peripheral Intravenous Catheter and Rapid Infusion Catheter, when no infusion to maintain patency Continuous Medication Order 12/21/2021 12/22/2021 12/23/2021 NaCl 0.45 % infusion (CANCELED) 2240 (New Bag - Provider: Ladan Mendez R.N.) 1530 (Stopped - Provider: Rosa Sepulveda R.N.)1600 (Restarted - Provider: Rosa Sepulveda R.N.)1812 (New Bag - Provider: Rosa Sepulveda R.N.)2131 (Stopped - Provider: Tawny Blas R.N.)2247 (Restarted - Provider: Jerry Beaulieu R.N.) 0650 (Stopped - Provider: Jerry hester R.N.) 60 mL/hr, intravenous, Continuous, Starting on Mon12/21/21 at 21 45 PRN Medication Order 12/21/2021 12/22/2021 12/23/2021 fentaNYL injection 25 mcg (SUBLIMAZE) (CANCELED) 1459 (Given - Provider: Tawny Holley R.N.)1503 (Given - Provider: Tawny Holley R.N.)1507 (Given - Provider: Tawny Holley R.N.) 25 mcg, intravenous, Every 2 min PRN, se dation, or pain before and during sedation procedure, Starting on Mon12/22/21 at 1440, Intraprocedure (RAD), Administer over 1 minute immediately prior to the pro cedure. May repeat every 2 minutes to a maximum of 200 mcg, until pain score of 3 or less from baseline. Do not give if respiratory rate is less than 8 breaths/minute ketorolac injection 15 mg (TORADOL) () 0510 (Given - Provider: Aggie Mendez R.N.) 15 mg, intravenous, Every 6 hours PRN, s evere pain or score 7-10 of 10, Starting on Mon12/21/21 at 2108, For 2 doses, Do not administer if urine output less than 20 mL/hour for 2 consecutive hours Adult IV push rate: Over 15 seconds. Peds IV push rate: Over 1 minute. 60 mg dose only for IM, not recommended for IV. lidocaine 10 mg/mL (1 %) injection (XYLOCAINE) (COMPLETED) 1514 (Given - Provider: Stevie Barrios M.D.) Code/trauma/sedation medication, Starting on Mon12/22/21 at 1514 midazolam (PF) injection 0.5 mg (VERSED) (COMPLETED) 1507 (Given - Provider: Tawny Holley R.N.) 0.5 mg, intravenous, Once as needed, sed ation, Starting on Mon12/22/21 at 1440, For 1 dose, Intraprocedure (RAD) midazolam (PF) injection 0.5 mg (VERSED) (CANCELED) 1504 (Given - Provider: Tawny Holley R.N.) 0.5 mg, intravenous, Every 2 min PRN, se dation, RASS -1, Starting on Mon12/22/21 at 1440, Intraprocedure (RAD), May repeat every 2 minutes for a maximum of 5 mg. Do not give if respiratory rate is less than 8 breaths/minute. midazolam (PF) injection 1 mg (VERSED) (CANCELED) 1500 (Given - Provider: Tawny Holley R.N.) 1 mg, intravenous, Every 2 min PRN, dylon tion, RASS 0, Starting on Mon12/22/21 at 1440, Intraprocedure (RAD), May repeat every 2 minutes for a maximum of 5 mg. Do not give if respiratory rate is less than 8 breaths/minute. naloxone injection 0.2 mg (NARCAN) 0.2 mg, intravenous, As needed, respirat ory depression, Starting on Mon12/21/21 at 2108, For RASS Score -4 or less, respiratory rate of less than 8 breaths/min. Notify provider/service and rapid response team (if available at institution). oxyCODONE IR tablet 10 mg (ROXICODONE)(Linked Group 1) 0324 (Given - Provider: Jerry Beaulieu R.N.) 10 mg, oral, Every 4 hours PRN, severe p ain or score 7-10 of 10, Starting on Mon12/21/21 at 2108, or for pain greater than comfort goal oxyCODONE IR tablet 5 mg (ROXICODONE)(Linked Group 1) 0324 (See Alternative - Provider: Jerry Beaulieu R.N.) 5 mg, oral, Every 4 hours PRN, moderate pain or score 4-6 of 10, Starting on Mon12/21/21 at 2108 sodium chloride 0.9 % injection 10 mL 10 mL, intravenous, As needed, line care , Starting on Mon12/21/21 at 2108, Peripheral Intravenous Catheter and Rapid Infusion Catheter, prior to blood sampling, post blood transfusion or post blood sampling sodium chloride 0.9 % injection 3 mL 3 mL, intravenous, As needed, line care, Starting on Mon12/21/21 at 2108, Prior to and following infusion and between multiple consecutive infusions: sodium chloride 0.9 % injection Linked Groups Order Group 1: oxyCODONE IR tablet 5 mg (ROXICODONE)Jump to med 5 mg, oral, Every 4 hours PRN, moderate pain or score 4-6 of 10, Starting on Mon12/21/21 at 2108 Or oxyCODONE IR tablet 10 mg (ROXICODONE)Jump to med 10 mg, oral, Every 4 hours PRN, severe p ain or score 7-10 of 10, Starting on Mon12/21/21 at 8
or for pain greater than comfort goal
documented in this encounter
--- OUTSIDE RECORDS SUMMARY | 2022-03-08 08:16 | XMS_ITS | Encounter Summary ---
:1955 Author Organization [facility] Address [address] [place] [address] Care Team Providers Name Role Phone Unavailable Primary Care Provider Unavailable Encounter Details Date Type Department Care Team Description 11/20/2018 Orders Only Department of [place] Javier Clinical R esearch Exam Radiology, Jamal Acevedo M.D. (Primary Dx) [facility], in [place], [facility] [address] [place], [place] [address] [facility] [address] [place], [place] [phone] (Work) [phone] Social History Tobacco Use Types Packs/Day Years Used Date Smoking Tobacco: Unknown Sex Assigned at Date Recorded Not on file documented as of this encounter Plan of Treatment Not on filedocumented as of this encounter Visit Diagnoses Diagnosis Clinical Research Exam - Primary documented in this encounter
--- OUTSIDE RECORDS SUMMARY | 2022-03-08 08:16 | XMS_ITS | Encounter Summary ---
:1955 Author Organization [facility] Address [address] [place] [address] Care Team Providers Name Role Phone Unavailable [...]
--- OUTSIDE RECORDS SUMMARY | 2022-03-08 08:16 | XMS_ITS | Encounter Summary ---
:1955 Author Organization [facility] Address [address] [place] [address] Care Team Providers Name Role Phone Unavailable Primary Care Provider Unavailable Encounter Details Date Type Department Care Team Description 12/31/2018 Orders Only Department of Osei Perez, Clinical R esearch Exam Radiology, [place] Jeri (Primary Dx) [facility], in [address] [place] [address] [place] [address] [place], [place] [phone] (Work) [phone] Social History Tobacco Use Types Packs/Day Years Used Date Smoking Tobacco: Unknown Sex Assigned at Date Recorded Not on file documented as of this encounter Plan of Treatment Not on filedocumented as of this encounter Visit Diagnoses Diagnosis Clinical Research Exam - Primary documented in this encounter
--- OUTSIDE RECORDS SUMMARY | 2022-03-08 08:17 | XMS_ITS | Encounter Summary ---
:1955 Author Organization Department of [facility] rs Address [address] [place] [address] Support Name Relationship Address Phone ANGELINE DANIELLE Unavailable [address] [place] [address] ANGELINE DANIELLE Unavailable [address] [place] [address] MARGY HASSAN Unavailable [address] [facility] [place] [address] Insurance Providers: All historical and current Section Date Range: From patient's date of to the date document was created.This section includes the names of all active insurance providers for the patient. Insurance Type of Plan Start of End of Group Member Insurance Policy P atient's Provider Coverage Name Policy Policy Number ID Provider's Yoo's Relationship Coverage Coverage Telephone Name to Policy Number Yoo [facility] PREF[facility]GE Dec 24, [id number] NAATZ,EUG PATIENT PROVIDER E 2009 4 [phone] ANTWON ORGANIZAT ENTER ION (PPO) PRISE S, PRIME PRESCRIPT BS Jun 12, [place] [id number] NAATZ,EUG P ATIENT THERAPEUTI ION N 2017 [facility] [id number] ANTWON CS [facility] HSA PRIME PRESCRIPT RX Sep 24, [id number] NAATZ,EUG PATIENT THERAPEUTI ION PLAN 2010 [id number] ANTWON CS Selected Encounter This section includes the information on record at [place] for the Encounter. Date/Time Encounter Type Encounter Reason Provider Source Description Dec 23, 2021 10:33 Outpatient COMMUNITY CARE FANNY SHANNON AM Encounter CONSULT RN IHE Encounter Template Text not used by [facility] Plan of Treatment: Future Appointments (+ 6 months) and Future Tests (+/- 45 days) The Plan of Treatment section includes future care activities for the patient from all [place] treatmentfacilities. This section includes future appointments and future orders which are active, pending orscheduled.Future Appointments This section includes appointments that were scheduled to occur 6 months from the date of the Encounter, up to a maximum of 20 appointments. The data comes from all [place] treatment facilities. Appointment Date/Time Appointment Type Appointment Facili ty Name Dec 28, 2021 01:00 PM AMBULATORY - MEDICINE DYANA G[facility] Mar 07, 2022 10:00 AM AMBULATORY - [facility] Mar 14, 2022 01:00 PM AMBULATORY - [...] the Encounter. The data comes from all [place] treatment facilities. Test Date/Time Test Type Test Details Facility Name Dec 27, 2021 12:22 PM Consult Order COMMUNITY CARE-COLONOSCOPY D[facility]NA AG[facility]WAL [facility] DIAGNOSTIC Cons Bus Operator's Choice Encounter Notes: All associated encounter notes This section contains the clinical notes associated to the Encounter. Date/Time Encounter Note(s) Provider Source Dec 23, 2021 10:33 AM NONVA NOTE: RASHEEDA SHANNON RN [facility] LOCAL TITLE: COMMUNITY CARE-COORDINATION PLAN STANDARD TITLE: NONVA NOTE DATE OF NOTE: DEC 23, 2021@10:33 ENTRY DATE: DEC 23, 2021@10:33:21 AUTHOR: RASHEEDA SHANNON RN EXP COSIGNER: URGENCY: STATUS: COMPLETED [place] self-presented to community emergency fa cility Emergency Notification Intake Date Presenting to the Facility: Dec [facility] Name: Hospital: [facility] Address: City: [place] State: [place] Zip Code: Phone : Chief complaint: unknown Primary Diagnosis: Patient Admitted? Yes Route of Admission: Date/Time of Admission: Admitting Diagnosis: unknown Community Care Provider: Confirm Level of Care: Community Facility Point of Contact: Name: Bárbara [phone] [id number] Notify - Approved for [id number] Submitted to [facility] as this facility is outside [facility] jurisdiction. /jeovany/ RASHEEDA SHANNON RN RN Signed: 12/23/2021 10:35
--- OUTSIDE RECORDS SUMMARY | 2022-03-08 08:17 | XMS_ITS | Encounter Summary ---
:1955 Author Organization Department [facility] rs Address [address] [place] [address] Support Name Relationship Address Phone ANGELINE DANIELLE Unavailable [address] [place] [address] ANGELINE DANIELLE Unavailable [address] [place] [address] [place], MARGY Unavailable [address] [facility] [phone] [place] [address] Insurance Providers: All historical and current Section Date Range: From patient's date of to the date document was created.This section includes the names of all active insurance providers for the patient. Insurance Type of Plan Start of End of Group Member Insurance Policy P atient's Provider Coverage Name Policy Policy Number ID Provider's Yoo's Relationship Coverage Coverage Telephone Name to Policy Number Yoo [place] PREFERRED APOGE Dec 24, [id number] NAATZ,EUG PATIENT PROVIDER E 2009 4 [phone] ANTWON ORGANIZAT ENTER ION (PPO) PRISE S, PRIME PRESCRIPT [place] Jun 12, [place] [id number] NAATZ,EUG P ATIENT THERAPEUTI ION N 2017 [facility] [id number] ANTWON CS [facility] HSA PRIME PRESCRIPT RX Sep 24, [id number] 800 [id number] NAATZ,EUG PATIENT THERAPEUTI ION PLAN 2010 [id number] ANTWON CS Selected Encounter This section includes the information on record at [facility] for the Encounter. Date/Time Encounter Type Encounter Reason Provider Source Description Apr 14, 2021 IMMUNIZATION PRIMARY ICD-10-CM Z23 BERTRAM SILVEIRA 01:15 PM ADMIN CARE/MEDICINE Encounter for JOSEPHINE immunization with Provider Comments: Encounter for any immunization IHE Encounter Template Text not used by [facility] Assessments - Encounter Diagnoses This section includes the primary and secondary diagnoses documented for the Encounter. Date/Time Primary/Secondary Diagnosis Name Provider Source Diagnosis Apr 14, 2021 PRIMARY Encounter for SILVEIRA,BERTRAM Gee 01:12 PM immunization ANY FLORES Plan of Treatment: Future Appointments (+ 6 months) and Future Tests (+/- 45 days) The Plan of Treatment section includes future care activities for the patient from all [place] treatmentfacilities. This section includes future appointments and future orders which are active, pending orscheduled.Future Appointments This section includes appointments that were scheduled to occur 6 months from the date of the Encounter, up to a maximum of 20 appointments. The data comes from all [place] treatment facilities. Appointment Date/Time Appointment Type Appointment Facili ty Name Aug 31, 2021 01:00 PM AMBULATORY - MEDICINE [facility]NA [place] Immunizations: All administered on the encounter date This section contains immunizations associated to the Encounter. Immunization Series Date Issued Reaction Comments ZOSTER RECOMBINANT 1 Apr 14, 2021 Social History: Smoking Status (Most current) and Tobacco Use (All prior to encounter date) This section includes the most current, and the historical, smoking and tobacco-related health factors from the [place] facility where the Encounter took place.Current Smoking Status This section includes the most current smoking, or tobacco-related health factor, from the [place] facility where the Encounter took place. Date/Time Current Smoking Status Comment Facility Sep 01, 2020 01:00 PM [place] FORMER USER ANAID [facility]OR[facility] Tobacco Use History This section includes a history of the smoking, or tobacco- related health factors, that were collected on or before the date of the Encounter. The data comes from the [place] facility where the Encounter took place. Date/Time Smoking Status/Tobacco Use Comment [facility] Sep 01, 2020 01:00 PM [place]-TOBAC[place] QUIT 5 TO < 15 YRS DYANA [facility]OR[facility] Encounter Notes: All associated encounter notes This section contains the clinical notes associated to the Encounter. Date/Time Encounter Note(s) Provider Source Apr 14, 2021 01:07 PM PRIMARY CARE NURSING NOTE: BERTRAM SILVEIRA LOCAL TITLE: [facility] NURSING PROGRESS NOTE STANDARD TITLE: PRIMARY CARE NURSING NOTE DATE OF NOTE: APR 14, 2021@13:07 ENTRY DATE: APR 14, 2021@13:07:50 AUTHOR: BERTRAM SILVEIRA EXP COSIGNER: URGENCY: STATUS: COMPLETED Herpes Zoster (Shingles) Vaccine: The patient received recombinant zoster vaccine (RZV) 0.5 ml IM in Left deltoid. Acetone Recovery Worker: Conformiq Lot#s and Expiration Date: Shingrix Lot # [id number] Exp on 04/25/22 Adjuvant Lot # [id number] Exp 04/25/22 Administered by protocol/policy Complications: None The VIS for the recombinant zoster vaccine (RZV ) dated Mar was given to the patient. Tolerated well. /jeovany/ BERTRAM SILVEIRA LPN LICENSED PRACTICAL NURSE Signed: 04/14/2021 13:13
--- OUTSIDE RECORDS SUMMARY | 2022-03-08 08:17 | XMS_ITS | Encounter Summary ---
:1955 Author Organization Department of [facility] rs Address [address] [place] [address] Support Name Relationship Address Phone ANGELINE DANIELLE Unavailable [address] [place] [address] ANGELINE DANIELLE Unavailable [address] [place] [address] MARGY HASSAN Unavailable [address] [facility] [phone] [place] [address] Insurance Providers: All historical and current Section Date Range: From patient's date of to the date document was created.This section includes the names of all active insurance providers for the patient. Insurance Type of Plan Start of End of Group Member Insurance Policy P atient's Provider Coverage Name Policy Policy Number ID Provider's Yoo's Relationship Coverage Coverage Telephone Name to Policy Number Yoo [facility] PREFERRED APOGE Dec 24, [id number] NAATZ,EUG PATIENT PROVIDER E 2009 4 [phone] ANTWON ORGANIZAT ENTER ION (PPO) PRISE S, PRIME PRESCRIPT BS Jun 12, [place]BS[place] [id number] NAATZ,EUG P ATIENT THERAPEUTI ION N 2017 [facility] [id number] ANTWON CS [facility] HSA PRIME PRESCRIPT RX Sep 24, [id number] NAATZ,EUG PATIENT THERAPEUTI ION PLAN 2010 [id number] ANTWON CS Selected Encounter This section includes the information on record at [place] for the Encounter. Date/Time Encounter Type Encounter Description Reason Provider Source Dec 24, 2021 10:11 Outpatient Encounter PRIMARY CARE/MEDICINE AM IHE Encounter Template Text not used by [place] Plan of Treatment: Future Appointments (+ 6 months) and Future Tests (+/- 45 days) The Plan of Treatment section includes future care activities for the patient from all [place] treatmentfacity hospital. This section includes future appointments and future orders which are active, pending orscheduled.Future Appointments This section includes appointments that were scheduled to occur 6 months from the date of the Encounter, up to a maximum of 20 appointments. The data comes from all [place] treatment facilities. Appointment Date/Time Appointment Type Appointment Facili ty Name Dec 28, 2021 01:00 PM AMBULATORY - MEDICINE [facility] Mar 07, 2022 10:00 AM AMBULATORY - [facility] Mar 14, 2022 01:00 PM AMBULATORY [...] the Encounter. The data comes from all [place] treatment facilities. Test Date/Time Test Type Test Details Facility Name Dec 27, 2021 12:22 PM Consult Order COMMUNITY CARE-COLONOSCOPY DYANA [facility] DIAGNOSTIC Cons Supervisor Asphalt Paving's Choice Encounter Notes: All associated encounter notes This section contains the clinical notes associated to the Encounter. Date/Time Encounter Note(s) Provider Source Dec 24, 2021 10:11 AM REPORT OF CONTACT: BARTOLO ÁLVAREZ LOCAL TITLE: PATIENT CONTACT NOTE L [facility]OC STANDARD TITLE: REPORT OF CONTACT DATE OF NOTE: DEC 24, 2021@10:11 ENTRY DATE: DEC 24, 2021@10:11:08 AUTHOR: BARTOLO ÁLVAREZ EXP COSIGNER: URGENCY: STATUS: COMPLETED PATIENT CONTACT NOTE Has ADDENDA Patient contact Name of [place]: AVIVAFRANCINE DUNCAN Name/Relationship of Contact if other than Veter an: Date & Time of Contact: Dec@10:11 Type of Contact: Telephone Reason for Contact: patient called last week and he was referred to ER and he went to ER and the sent him to [facility] in [place] and just got out of the hospital and they want him to get consult for colonscopy. /jeovany/ BARTOLO ÁLVAREZ MSA Signed: 12/24/2021 10:14 Receipt Acknowledged By: 12/24/2021 13:27 /maurilio Nancy Johnson RN Nurse [facility] 12/24/2021 ADDENDUM STATUS: COMPLETED Gold Buyer contacted who stated that he was recently hospitalized for diverticulitis and an abscess. He was advised by his physician to follow up with GI in 6-8 weeks which may include a colonos copy. stated he would rather be seen via [facility] than go to [facility] s. Gold Buyer explained that a [facility] GI consult would be placed and to wait for a [facility] call to follow up. Gold Buyer and also discussed s etting up a follow up appointment with a performance improvement consultant. [place] verbalized understanding and agr eement to plan. Gold Buyer alerted Salma Ulloa MSA to call and schedule dietici an appointment. /jeovany/ Nancy Johnson RN Nurse [facility] Signed: 12/24/2021 13:29
--- OUTSIDE RECORDS SUMMARY | 2022-03-08 08:17 | XMS_ITS | Encounter Summary ---
:1955 Author Organization Department [facility] rs Address [address] [place] [address] Support Name Relationship Address Phone ANGELINE DANIELLE Unavailable [address] [place] [address] ANGELINE DANIELLE Unavailable [address] [place] [address] MARGY HASSAN Unavailable [address] [facility] [place] [address] Insurance Providers: All historical and current Section Date Range: From patient's date of to the date document was created.This section includes the names of all active insurance providers for the patient. Insurance Type of Plan Start of End of Group Member Insurance Policy P atient's Provider Coverage Name Policy Policy Number ID Provider's Yoo's Relationship Coverage Coverage Telephone Name to Policy Number Yoo [facility] PREFERRED APOGE Dec 24, [id number] NAATZ,EUG PATIENT PROVIDER E 2009 4 [phone] ANTWON ORGANIZAT ENTER ION (PPO) PRISE S, PRIME PRESCRIPT BCBSM Jun 12, [place]BS[place] [id number] NAATZ,EUG P ATIENT THERAPEUTI ION N 2017 [facility] [id number] ANTWON CS [facility] PRIME PRESCRIPT RX Sep 24, [id number] NAATZ,EUG PATIENT THERAPEUTI ION PLAN 2010 [id number] ANTWON CS Selected Encounter This section includes the information on record at [place] for the Encounter. Date/Time Encounter Type Encounter Reason Provider Source Description Dec 22, 2021 03:32 Outpatient ADMIN PAT ACTIVTIES SONIA ALAMO PM Encounter (MASNONCT) IHE Encounter Template Text not used by [place] Plan of Treatment: Future Appointments (+ 6 months) and Future Tests (+/- 45 days) The Plan of Treatment section includes future care activities for the [facility] [place] [facility] This section includes future appointments and future orders which are active, pending orscheduled.Future Appointments This section includes appointments that were scheduled to occur 6 months from the date of the Encounter, up to a maximum of 20 appointments. The data comes from all [facility]. Appointment Date/Time Appointment Type Appointment Facili ty Name Dec 23, 2021 11:09 AM AMBULATORY - NONE [facility] Dec 28, 2021 01:00 PM AMBULATORY - MEDICINE D[facility]NA AGARWAL [facility] Mar 07, 2022 10:00 AM AMBULATORY NONE [facility] Mar 14, 2022 01:00 PM AMBULATORY - MEDICINE [facility]NA AGARWAL [facility] Active, Pending, and Scheduled Orders This section includes a listing of several types of active, pending, and scheduled orders, including clinic medications orders, diagnostic test orders, procedure orders and consult orders; where the start date of the order is 45 days before the date of the Encounter or 45 days after the date of the Encounter. The data comes from all [facility]. Test Date/Time Test Type Test Details Facility Name Dec 27, 2021 12:22 PM Consult Order COMMUNITY CARE-COLONOSCOPY DYANA C AGARWAL [facility] DIAGNOSTIC Cons Well Service Pump Equipment Operator's Choice Encounter Notes: All associated encounter notes This section contains the clinical notes associated to the Encounter. Date/Time Encounter Note(s) Provider Source Dec 21, 2021 03:45 PM NONVA NOTE: VANESSA PEARSON IS [facility] LOCAL TITLE: COMMUNITY CARE-[place] SELF PRESENTIN G CARE COORD PLAN STANDARD TITLE: NONVA NOTE DATE OF NOTE: DEC 21, 2021@15:45 ENTRY DATE: DEC 22, 2021@15:34:43 AUTHOR: VANESSA PEARSON EXP COSIGNER: URGENCY: STATUS: COMPLETED COMMUNITY CARE-PALAK SELF PRESENTING CARE CO ORD PLAN NOTE Has ADDENDA Emergency Notification Intake Date Presenting to the Facility: Dec Method of Contact: Notified from theDrop worklist Notification ID: [id number] Referral #: [facility] Hospital Name: Hospital: [facility] Address: City: [place] State: [place] Zip Code: Phone : [facility] Facility Point of Contact: Name: DEPT Chief complaint: CYST Primary Diagnosis: Disposition Discharged Date of discharge: Dec Discharge to home /jeovany/ VANESSA PEARSON Bacteriologist Dairy(AOD) Signed: 12/22/2021 15:36 Receipt Acknowledged By: 01/12/2022 10:46 /jeovany/ SONIA ALAMO RN REGISTERED NURSE 01/12/2022 ADDENDUM STATUS: COMPLETED Medical records received: 01/12/22 [place] was seen in an outside ER on: 12/21/21 Jacob jiménez Diagnosis: Diverticulitis of large intestine wit h abscess Transferred to [facility] for further eval and tr eatment Medical records received and sent to [facility] for im port. /jeovany/ SONIA ALAMO RN REGISTERED NURSE Signed: 01/12/2022 10:52
--- OUTSIDE RECORDS SUMMARY | 2022-03-08 08:17 | XMS_ITS ---
:1955 Author Organization Department [facility] rs Address [address] [place] [address] Support Name Relationship Address Phone ANGELINE DANIELLE Unavailable [address] [place] [address] ANGELINE DANIELLE Unavailable [address] [place] [address] MARGY HASSAN Unavailable [address] [facility] [phone] [place] [address] Insurance Providers: All historical and current Section Date Range: From patient's date of to the date document was created.This section includes the names of all active insurance providers for the patient. Insurance Type of Plan Start of End of Group Member Insurance Policy P atient's Provider Coverage Name Policy Policy Number ID Provider's Yoo's Relationship Coverage Coverage Telephone Name to Policy Number Yoo [facility] PREFERRED APOGE Dec 24, [id number] NAATZ,EUG PATIENT PROVIDER E 2009 4 [phone] ANTWON ORGANIZAT ENTER ION (PPO) PRISE S, PRIME PRESCRIPT BS Jun 12, [place] [id number] NAATZ,EUG P ATIENT THERAPEUTI ION N 2017 [facility] [id number] ANTWON CS [facility] PRIME PRESCRIPT RX Sep 24, [id number] NAATZ,EUG PATIENT THERAPEUTI ION PLAN 2010 [id number] ANTWON CS Selected Encounter This section includes the information on record at [place] for the Encounter. Date/Time Encounter Type Encounter Reason Provider Source Description Dec 23, 2021 11:09 Outpatient ADMIN PAT ACTIVTIES JOSE JUAN ARNOLD AM Encounter (MASNONCT) L IHE Encounter Template Text not used by [place] Plan of Treatment: Future Appointments (+ 6 months) and Future Tests (+/- 45 days) The Plan of Treatment section includes future care activities for the patient from all [place] treatmentfacilities. This section includes future appointments and future orders which are active, pending orscheduled.Future Appointments This section includes appointments that were scheduled to occur 6 months from the date of the Encounter, up to a maximum of 20 appointments. The data comes from all [place] treatment facilities. Appointment Date/Time Appointment Type Appointment Facili ty Name Dec 28, 2021 01:00 PM AMBULATORY - MEDICINE [facility] Mar 07, 2022 10:00 AM AMBULATORY - NONE [facility] Mar 14, 2022 01:00 PM AMBULATORY - [...] the Encounter. The data comes from all [place] treatment facilities. Test Date/Time Test Type Test Details Facility Name Dec 27, 2021 12:22 PM Consult Order COMMUNITY CARE-COLONOSCOPY [facility]NA [facility] DIAGNOSTIC Cons Freight Loader's Choice Encounter Notes: All associated encounter notes This section contains the clinical notes associated to the Encounter. Date/Time Encounter Note(s) Provider Source Dec 21, 2021 08:25 PM NONVA NOTE: VANESSA PEARSON IS [facility] LOCAL TITLE: COMMUNITY CARE-PALAK SELF PRESENTIN G CARE COORD PLAN STANDARD TITLE: NONVA NOTE DATE OF NOTE: DEC 21, 2021@20:25 ENTRY DATE: DEC 23, 2021@11:10:32 AUTHOR: VANESSA PEARSON EXP COSIGNER: URGENCY: STATUS: COMPLETED COMMUNITY CARE-PALAK SELF PRESENTING CARE CO ORD PLAN NOTE Has ADDENDA Emergency Notification Intake Date Presenting to the Facility: Dec Method of Contact: Notified from [employer] worklist Notification ID: [id number] [facility] Referral #: [facility] Hospital Name: Hospital: [facility] Address: [address] [place] [address] City: [place] State: [place] Zip Code: Phone : [facility] Facility Point of Contact: Name: SHOSHANA Chief complaint: K5780 - Diverticulitis of intes lul, part unspecified, with perforation and abscess without bleeding Primary Diagnosis: Disposition Admitted Route of Admission: Date of Admission: Dec Admitting Diagnosis: K5780 - Diverticulitis of intestine, part unspecif Community Care Provider: Confirm Level of Care: Notify - Approved for 1703 /maurilio PEARSON Spinning Mule Operator(AOD) Signed: 12/23/2021 11:12 Receipt Acknowledged By: 12/27/2021 14:36 /jeovany/ JOSE JUAN ARNOLD RN [facility] UTILIZATION MANAGEMENT 12/27/2021 ADDENDUM STATUS: COMPLETED DISCHARGE NOTE CLINICAL CARE COORDINATION INFORMATION Hospital Name: [facility] Admit date: 12-21-21 Discharge date: 12-23-21 Level of Care: acute Primary Diagnosis: Diverticulitis With Abscess Other Issues for Outpatient Follow-up: diverticulitis clinic will r each out to you to set up an appointment for follow up 6-8 weeks by a nurse practitioner. fungal cultures from aspiration fluid were pend ing Discharge Disposition: Home Hospital Records obtained and sent to [facility]. Will be scanned into [facility] electronic medical record in [employer]. Please review records when imported for any n eeded follow up and place appropriate specialty consults. /jeovany/ JOSE JUAN ARNOLD RN [facility] UTILIZATION MANAGEMENT Signed: 12/27/2021 14:48 Receipt Acknowledged By: * AWAITING SIGNATURE * MEDARDO DE JESUS * AWAITING SIGNATURE * VANESSA SAMSON
--- OUTSIDE RECORDS SUMMARY | 2022-03-08 08:18 | XMS_ITS | Encounter Summary ---
:1955 Author Organization Department of [facility] rs Address [address] [place] [address] Support Name Relationship Address Phone ANGELINE DANIELLE Unavailable [address] [place] [address] ANGELINE DANIELLE Unavailable [address] [place] [address] MARGY HASSAN Unavailable [address] [facility] [address] Insurance Providers: All historical and current Section Date Range: From patient's date of to the date document was created.This section includes the names of all active insurance providers for the patient. Insurance Type of Plan Start of End of Group Member Insurance Policy P atient's Provider Coverage Name Policy Policy Number ID Provider's Yoo's Relationship Coverage Coverage Telephone Name to Policy Number Yoo [facility] PREFERRED APOGE Dec 24, [id number] NAATZ,EUG PATIENT PROVIDER E 2009 4 [phone] ANTWON ORGANIZAT ENTER ION (PPO) PRISE S, PRIME PRESCRIPT BS Jun 12, [place]BS[place] [id number] NAATZ,EUG P ATIENT THERAPEUTI ION N 2017 [facility] [id number] ANTWON CS [facility] PRIME PRESCRIPT RX Sep 24, [id number] NAATZ,EUG PATIENT THERAPEUTI ION PLAN 2009 [id number] ANTWON CS Selected Encounter This section includes the information on record at [place] for the Encounter. Date/Time Encounter Type Encounter Description Reason Provider Source Jan 10, 2022 09:41 Outpatient Encounter PRIMARY CARE/MEDICINE AM IHE Encounter Template Text not used by [place] Plan of Treatment: Future Appointments (+ 6 months) and Future Tests (+/- 45 days) The Plan of Treatment section includes future care activities for the patient from all [place] [facility]. This section includes future appointments and future orders which are active, pending orscheduled.Future Appointments This section includes appointments that were scheduled to occur 6 months from the date of the Encounter, up to a maximum of 20 appointments. The data comes from all [place] treatment facilities. Appointment Date/Time Appointment Type Appointment Facili ty Name Mar 07, 2022 10:00 AM AMBULATORY - [facility] Mar 14, 2022 01:00 PM AMBULATORY - [...] the Encounter. The data comes from all [facility]. Test Date/Time Test Type Test Details Facility Name Dec 27, 2021 12:22 PM Consult Order COMMUNITY CARE-COLONOSCOPY DYANA FLORES DIAGNOSTIC Cons Power Wood Sawyer's Choice Encounter Notes: All associated encounter notes This section contains the clinical notes associated to the Encounter. Date/Time Encounter Note(s) Provider Source Jan 10, 2022 09:41 AM REPORT OF CONTACT: OSWALD STEWART LOCAL TITLE: PATIENT CONTACT NOTE STANDARD TITLE: REPORT OF CONTACT DATE OF NOTE: JAN 10, 2022@09:41 ENTRY DATE: JAN 10, 2022@09:41:35 AUTHOR: OSWALD STEWART EXP COSIGNER: URGENCY: STATUS: COMPLETED Patient contact Name of Shelton: TYLERFRANCINE Name/Relationship of Contact if other than Veter an: Date & Time of Contact: Jan@09:41 Type of Contact: Reason for Contact: called with question s about his Emergency Care from December 21 and . Please call Shelton. /jeovany/ OSWALD STEWART MSA [facility] Signed: 01/10/2022 09:42 Receipt Acknowledged By: * AWAITING SIGNATURE * MEDARDO DE JESUS
--- OUTSIDE RECORDS SUMMARY | 2022-03-08 08:18 | XMS_ITS | Encounter Summary ---
:1955 Author Organization Department of [facility] rs Address [address] [place] [address] Support Name Relationship Address Phone ANGELINE DANIELLE Unavailable [address] [place] [address] ANGELINE DANIELLE Unavailable [address] [place] [address] MARGY HASSAN Unavailable [address] [facility] [phone] [place] [address] Insurance Providers: All historical and current Section Date Range: From patient's date of to the date document was created.This section includes the names of all active insurance providers for the patient. Insurance Type of Plan Start of End of Group Member Insurance Policy P atient's Provider Coverage Name Policy Policy Number ID Provider's Yoo's Relationship Coverage Coverage Telephone Name to Policy Number Yoo [facility] PREFERRED APOGE Dec 24, [id number] NAATZ,EUG PATIENT PROVIDER E 2009 4 [phone] ANTWON ORGANIZAT ENTER ION (PPO) PRISE S, PRIME PRESCRIPT BS Jun 12, [place]BS[place] [id number] NAATZ,EUG P ATIENT THERAPEUTI ION N 2017 [facility] [id number] ANTWON CS [facility] PRIME PRESCRIPT RX Sep 24, [id number] 800 [id number] NAATZ,EUG PATIENT THERAPEUTI ION PLAN 2010 47 [id number] ANTWON CS Selected Encounter This section includes the information on record at [place] for the Encounter. Date/Time Encounter Type Encounter Description Reason Provider Source Jan 24, 2022 09:38 Outpatient Encounter PRIMARY CARE/MEDICINE AM IHE Encounter Template Text not used by [place] Plan of Treatment: Future Appointments (+ 6 months) and Future Tests (+/- 45 days) The Plan of Treatment section includes future care activities for the patient from all [place] [facility]. This section includes future appointments and future orders which are active, pending orscheduled.Future Appointments This section includes appointments that were scheduled to occur 6 months from the date of the Encounter, up to a maximum of 20 appointments. The data comes from all [place] treatment facilities. Appointment Date/Time Appointment Type Appointment Facili ty Name Mar 07, 2022 10:00 AM AMBULATORY - [facility] Mar 14, 2022 01:00 PM AMBULATORY - MEDICINE D[facility]NA [facility]ANCOCK Active, Pending, and Scheduled Orders This section includes a listing of several types of active, pending, and scheduled orders, including clinic medications orders, diagnostic test orders, procedure orders and consult orders; where the start date of the order is 45 days before the date of the Encounter or 45 days after the date of the Encounter. The data comes from all [facility] facilities. Test Date/Time Test Type Test Details Facility Name Dec 27, 2021 12:22 PM Consult Order COMMUNITY CARE-COLONOSCOPY [facility]NA [facility] DIAGNOSTIC Cons Police Clerk's Choice Encounter Notes: All associated encounter notes This section contains the clinical notes associated to the Encounter. Date/Time Encounter Note(s) Provider Source Jan 24, 2022 09:38 AM REPORT OF CONTACT: BARTOLO ÁLVAREZ LOCAL TITLE: PATIENT CONTACT NOTE L STANDARD TITLE: REPORT OF CONTACT DATE OF NOTE: JAN 24, 2022@09:38 ENTRY DATE: JAN 24, 2022@09:38:53 AUTHOR: BARTOLO ÁLVAREZ EXP COSIGNER: URGENCY: STATUS: COMPLETED PATIENT CONTACT NOTE Has ADDENDA Patient contact Name of : FRANCINE SCOTT Name/Relationship of Contact if other than Veter an: Date & Time of Contact: Jan@09:39 Type of Contact: Telephone Reason for Contact: patient called he needs refills on: CLOPIDOGREL BISULFATE 75MG TAB () and Lisinopril 40 mg his prescription ran out. /jeovany/ BARTOLO ÁLVAREZ MSA Signed: 01/24/2022 09:40 Receipt Acknowledged By: 01/24/2022 09:53 /jeovany/ GLO SIMPSON LPN [facility] 01/24/2022 ADDENDUM STATUS: COMPLETED Pending PCP review. /jeovany/ GLO SIMPSON LPN [facility] Signed: 01/24/2022 09:54
--- OUTSIDE RECORDS SUMMARY | 2022-03-08 10:34 | XMS_ITS | Encounter Summary ---
:1955 Author Organization [facility] Address [address] [place] [address] Care Team Providers Name Role Phone Unavailable Primary Care Provider Unavailable Reason for Visit Reason Comments Numbness Encounter Details Date Type Department Care Team Description 05/25/2018 Emergency [facility] ED Weakness General (Primary Dx ); [address] [place] [address] Social History Tobacco Use Types Packs/Day [...] ANGIOGRAM WITH IV (Fast; most ED AM FINGERPRINT TECHNICIAN procedur e are in CONTRAST patients; some the results inpatients) section. CT HEAD WITHOUT RAD - Semiurgent 05/25/2018 9:19 Weakness General R esults for this IV CONTRAST (Fast; most ED AM FINGERPRINT TECHNICIAN procedure are in patients; some the results inpatients) section. documented in this encounter Results CT Head Neck Angiogram with IV Contrast (05/25/2018 11:40 AM FINGERPRINT TECHNICIAN) Anatomical Region Laterality Modality Head and Neck, Neuroradiology RST LOS, Neuroradiology N/A Computed Tomography ARZ LOS, Neuroradiology FLA LOS Specimen (Source) Anatomical Collection Method Collection Time Re ceived Time Location / / Volume Laterality 05/25/2018 11:53 AM FINGERPRINT TECHNICIAN Impressions 05/25/2018 12:01 PM FINGERPRINT TECHNICIAN IMPRESSION: 1. 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 2. No evidence of hemodynamically signif icant stenosis or dissection of the right carotid artery or left carotid art vicki. Narrative 05/25/2018 12:01 PM FINGERPRINT TECHNICIAN EXAM: CT HEAD NECK ANGIOGRAM WITH IV [...] occlusion of the proximal branches of the southern ute of Willi s. Nonvascular findings: No acute findings. Measurement of a carotid stenosis, if pr esent, is based on length parameters that compare the residual internal carot id luminal diameter with that of the normal distal ICA in accordance with [facility] [place] Symptomatic Carotid Endarterectomy Trial (NASCET). Procedure Note [...] occlusion of the proximal branches of the southern ute of Willi s. Nonvascular findings: No acute findings. Measurement of a carotid stenosis, if pr esent, is based on length parameters that compare the residual internal carot id luminal diameter with that of the normal distal ICA in accordance with [facility] [place] Symptomatic Carotid Endarterectomy Trial (NASCET). IMPRESSION: 1. 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 2. No evidence of hemodynamically signif icant stenosis or dissection of the right carotid artery or left carotid art vicki. Fan Cutler M.D. 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 Narrative 05/25/2018 9:31 AM FINGERPRINT TECHNICIAN EXAM: CT HEAD WITHOUT IV CONTRAST COMPARISON: [...] 100 mL Right Antecubital solution 100 mL FINGERPRINT TECHNICIAN (OMNIPAQUE) 100 mL, intravenous, Once in imaging, contrast, Starting on Mon05/25/18 at 1143, For 1 dose NaCl 0.9 % bolus 90 mL New Bag 05/25/2018 11:09 AM FINGERPRINT TECHNICIAN 90 mL Righ t Antecubital 90 mL, intravenous, Once, On Mon05/25/18 at 1200, For 1 dose sodium chloride 0.9 % Given 05/25/2018 11:09 AM FINGERPRINT TECHNICIAN 10 mL Right Antecubital injection 10 mL 10 mL, intravenous, As needed, line care, Starting on Mon05/25/18 at 1143 documented in this encounter Active and Recently Administered Medications Times are shown in FINGERPRINT TECHNICIAN. Scheduled Medication Order 05/23/2018 05/24/2018 05/25/2018 NaCl 0.9 % bolus 90 mL (COMPLETED) 1109 (New Bag - Provider: Bryan JacobsTGodwin(R)) 90 mL, intravenous, Once, On Mon05/25/18 at 1200, For 1 dose PRN Medication Order 05/23/2018 05/24/2018 05/25/2018 iohexol 350 mg iodine/mL solution 100 mL (OMNIPAQUE) (COMPLETED) 1109 (Given - Provider: Bryan JacobsTGodwin(R)) 100 mL, intravenous, Once in imaging, co ntrast, Starting on Mon05/25/18 at 1143, For 1 dose sodium chloride 0.9 % injection 10 mL (CANCELED) 1109 (Given - Provider: Bryan JacobsTGodwin(R)) 10 mL, intravenous, As needed, line care, Starting on Mon at 1143 documented in this encounter
--- OUTSIDE RECORDS SUMMARY | 2022-03-08 10:34 | XMS_ITS | Encounter Summary ---
:1955 Author Organization [facility] Address [address] [place] [address] Care Team Providers Name Role Phone Unavailable Primary Care Provider Unavailable Encounter Details Date Type Department Care Team Description 01/02/2019 Orders Only Department of Osei Perez, Clinical R esearch Exam Radiology, [place] (Primary Dx) [facility], in [address] [place] [address] [place] [address] [place], [place] [phone] (Work) [phone] Social History Tobacco Use Types Packs/Day Years Used Date Smoking Tobacco: Unknown Sex Assigned at Date Recorded Not on file documented as of this encounter Plan of Treatment Not on filedocumented as of this encounter Visit Diagnoses Diagnosis Clinical Research Exam - Primary documented in this encounter
--- OUTSIDE RECORDS SUMMARY | 2022-03-08 10:34 | XMS_ITS | Encounter Summary ---
:1955 Author Organization [facility] Address [address] [place] [address] Care Team Providers Name Role Phone Unavailable Primary Care Provider Unavailable Reason for Visit Reason Comments Antibiotics Encounter Details Date Type Department Care Team Description 12/30/2021 Clinical Communication Division of Colon and Mathew Handley, Antibiotics Rectal Surgery in .[place], [place] [address] [facility] [address] [place] [phone] Social History Tobacco Use Types Packs/Day Years [...] he needs to be on the antibiotics. [phone] documented in this encounter Plan of Treatment Not on filedocumented as of this encounter Visit Diagnoses Not on filedocumented in this encounter
--- OUTSIDE RECORDS SUMMARY | 2022-03-08 10:34 | XMS_ITS | Clinical Summary ---
:1955 Author Organization [employer] [facility] [place] [address] Care Team Providers Name Role Phone Clinic, [facility] Primary Care Provider [phone] Allergies No known active allergies Medications Medication [...] Encounter Alma Lezama Lef t lower quadrant WEIGHT GUESSER abdominal pain 12/21/2021 Office Visit Alma Lezama Abdominal Pain WEIGHT GUESSER 12/21/2021 Travel from Last 3 Months Immunizations [...] Results COVID 19 (12/21/2021 4:17 PM CDT) [facility] Quirky Method Time Signature COVID 19 Not detected Not detected 12/21/2021 [facility] 4:46 PM CDT [facility] Specimen Anatomical Location / Collection Method Collection Pro e Received Time (Source) Laterality / Volume Other SPECIMEN FROM Non-Blood / 12/21/2021 4:17 12/21/2021 4:24 NASOPHARYNGEAL Unknown PM CDT PM CDT STRUCTURE / Unknown Narrative [facility] - 4:46 PM CDT This test [...] Organization Address City/State/ZIP Code Phon e Number [facility] [address] [place] [address] COVID 19 COLLECTION (12/21/2021 4:17 PM CDT) Patholo gist Method Time Signature TESTING [facility] 12/21/2021 [facility] 4:24 PM T [facility] Comment: Specimen submitted to [facility] for testing. Specimen Anatomical Location / Collection Method Collection Pro e Received Time (Source) Laterality / Volume Other SPECIMEN FROM Non-Blood / 12/21/2021 4:17 12/21/2021 4:24 NASOPHARYNGEAL Unknown PM CDT PM CDT STRUCTURE / Unknown Osman Burns MD SEND OUTS Performing Organization Address City/[facility]/ZIP [facility] Phon e Number [facility] [address] [place] [address] BLOOD CULTURE (12/21/2021 4:12 PM CDT)Only the most recent of2 resultswithin the time period is included. athologist Signature CULTURE No growth 12/26/2021 [facility] to date. 10:02 PM CDT [facility] Specimen Anatomical Collection Method Collection Time Receive d Time (Source) Location / / Volume Laterality Blood BLOOD SPECIMEN / Butterfly / 12/21/2021 4:12 PM 12/21 4:16 Unknown Unknown CDT PM CDT Osman Burns MD MICROBIOLOGY Performing Organization Address [facility] Phon e Number [facility] [address] [place] [address] CT ABDOMEN PELVIS W (12/21/2021 1:35 PM [...] body heights are grossl y maintained with usjm-bw-[id number] multilevel degenerative disc disease. Th ere is [...] note that all CT scans at this [facility] use dose modulation, iterative reconstruction, and/or weight- based dosing when appropriate to reduce radiation dose to as low as reaso nably achievable. Dictated by Fausto Arias MD @ 2 2:40:43 PM ----- ADDENDUM [...] report s are released immediately into your [facility] medical record. ??You may view this report [...] body heights are grossl y maintained with yafx-cb-dwbmovoc multilevel degenerative disc disease. There is moderate [...] provider. If you have questions, please contact [facility] care provider. Indication: Left lower quadrant abdominal [...] body heights are grossl y maintained with rpdx-sb-nbfccvur multilevel degenerative disc disease. There is moderate [...] note that all CT scans at this [facility] use dose modulation, iterative reconstruction, and/or weight-based dosing when appropriate to reduce radiation dose to as low as reasonably achievable. Dictated by Fausto Arias MD @ 2:40:43 PM (Electronically Signed) Alma Lezama WEIGHT GUESSER CT (ABNORMAL) CBC WITH AUTO DIFFERENTIAL (12/21/2021 12:57 PM CDT) [facility] Method Time Signature WHITE BLOOD 10.5 4.5 - 12/21/2021 [place] COUNT 11.0 1:10 PM [facility] thou/cu LABORATORY mm RED BLOOD COUNT 4.17 (L) 4.30 - 12/21/2021 [place] 5.90 1:10 PM [facility] mil/cu mm LABORATORY HEMOGLOBIN 14.0 13.5 - 12/21/2021 [place] 17.5 g/dL 1:10 PM [facility] LABORATORY HEMATOCRIT 40.4 37.0 - 12/21/2021 [place] 53.0 % 1:10 PM T [facility] LABORATORY MCV 97 80 - 100 12/21/2021 [place] fL 1:10 PM [facility] LABORATORY MCH 33.6 26.0 - 12/21/2021 [place] 34.0 pg 1:10 PM [facility] LABORATORY MCHC 34.7 32.0 - 12/21/2021 [place] 36.0 g/dL 1:10 PM [facility] LABORATORY RDW 12.3 11.5 - 12/21/2021 [place] 15.5 % 1:10 PM T [facility] PLATELET COUNT 292 140 - 440 12/21/2021 [place] thou/cu 1:10 PM CDT [facility] mm LABORATORY MPV 8.8 6.5 - 12/21/2021 [place] 11.0 fL 1:10 PM [facility] LABORATORY % NEUT 75.9 % 12/21/2021 [place] 1:10 PM [facility] LABORATORY % LYMPH 15.6 % 12/21/2021 [place] 1:10 PM CDT [facility] % MONO 7.3 % 12/21/2021 [place] 1:10 PM CDT [facility] % EOS 1.0 % 12/21/2021 [place] 1:10 PM T [facility] LABORATORY % BASO 0.2 % 12/21/2021 [place] 1:10 PM T [facility] LABORATORY ABSOLUTE 8.0 (H) 1.7 - 7.0 12/21/2021 [place] NEUTROPHILS thou/cu 1:10 PM T [facility] mm LABORATORY ABSOLUTE 1.6 0.9 - 2.9 12/21/2021 [place] LYMPHOCYTES thou/cu 1:10 PM T [facility] mm LABORATORY ABSOLUTE 0.8 <0.9 12/21/2021 [place] MONOCYTES thou/cu 1:10 PM T [facility] mm LABORATORY ABSOLUTE 0.1 <0.5 12/21/2021 [place] EOSINOPHILS thou/cu 1:10 PM T [facility] mm LABORATORY ABSOLUTE 0.0 <0.3 12/21/2021 [place] BASOPHILS thou/cu 1:10 PM T [facility] mm LABORATORY Specimen Anatomical Collection Method / Collection Time Recei calvin Time (Source) Location / Volume Laterality Blood BLOOD SPECIMEN / Venipuncture / 12/21/2021 12:57 12/21 Unknown Unknown PM CDT 12:58 PM CDT Alma Kristina Lezama WEIGHT GUESSER HEMATOLOGY Performing Organization Address City/[facility] Phon e Number [facility] [address] [place] [address] (ABNORMAL) C-REACTIVE PROTEIN (12/21/2021 12:57 PM CDT) [facility] gist Method Time Signature C-REACTIVE 14.15 (H) <0.50 12/21/2021 [facility] PROTE[facility] mg/dL 1:17 PM T [facility] Specimen Anatomical Collection Method / Collection Time Recei calvin Time (Source) Location / Volume Laterality Blood BLOOD SPECIMEN / Venipuncture / 12/21/2021 12:57 12/21 Unknown Unknown PM CDT 12:58 PM CDT Alma E Lise WEIGHT GUESSER CHEMISTRY Performing Organization Address City/State/ZIP Code Phon e Number [facility] [address] [place] [address] (ABNORMAL) COMP METABOLIC PANEL (12/21/2021 12:57 PM CDT) [facility] Method Time Signature SODIUM 137 135 - 145 12/21/2021 [place] mmol/L 1:21 PM [facility] LABORATORY POTASSIUM 4.3 3.5 - 5.0 12/21/2021 [place] mmol/L 1:21 PM [facility] LABORATORY CHLORIDE 104 98 - 110 12/21/2021 [place] mmol/L 1:21 PM [facility] LABORATORY CO2,TOTAL 25 21 - 31 12/21/2021 [place] mmol/L 1:21 PM [facility] ANION GAP 8 5 - 18 12/21/2021 [place] 1:21 PM [facility] LABORATORY GLUCOSE 87 65 - 100 12/21/2021 [place] mg/dL 1:21 PM [facility] LABORATORY CALCIUM 9.5 8.5 - 10.5 12/21/2021 [place] mg/dL 1:21 PM [facility] LABORATORY BUN 17 8 - 25 12/21/2021 [place] mg/dL 1:21 PM [facility] LABOR[facility]ORY CREATININE 1.05 0.72 - 12/21/2021 [place] 1.25 mg/dL 1:21 PM [facility] LABORATORY BUN/CREAT RATIO 16 10 - 20 12/21/2021 [place] 1:21 PM [facility] LABORATORY ALBUMIN 3.9 3.2 - 4.6 12/21/2021 [place] g/dL 1:21 PM [facility] LABORATORY PROTEIN,TOTAL 7.7 6.0 - 8.0 12/21/2021 [place] g/dL 1:21 PM [facility] LABORATORY GLOBULIN 3.8 (H) 2.0 - 3.7 12/21/2021 [place] g/dL 1:21 PM [facility] LABORATORY A/G RATIO 1.0 1.0 - 2.0 12/21/2021 [place] 1:21 PM [facility] LABORATORY BILIRUBIN,TOTAL 0.5 0.2 - 1.2 12/21/2021 [place] mg/dL 1:21 PM [facility] LABORATORY ALK PHOSPHATASE 69 50 - 136 12/21/2021 [place] IU/L 1:21 PM [facility] LABORATORY ALT (SGPT) 39 8 - 45 12/21/2021 [place] IU/L 1:21 PM [facility] LABORATORY AST (SGOT) 30 2 - 40 12/21/2021 [place] IU/L 1:21 PM [facility] LABORATORY eGFR 79 (L) >90 12/21/2021 [place] mL/min/1.7 1:21 PM [facility] 3m2 LABORATORY Comment: As of 2021, eGFR [...] PM CDT 12:58 PM CDT Alma Lezama WEIGHT GUESSER CHEMISTRY Performing Organization Address City/State/ZIP Code Phon e Number [facility] [address] [place] [address] (ABNORMAL) URINALYSIS MICROSCOPIC (12/21/2021 12:43 PM CDT) [facility] gist Method Time Signature RBC 0-2 0-2, None 12/21/2021 [place] Seen /HPF 1:03 PM [facility] LABORATORY WBC 0-2 0-2, 3-5, 12/21/2021 [place] None Seen 1:03 PM [facility] /HPF LABORATORY BACTERIA Many (A) None Seen, 12/21/2021 [place] Rare, Few 1:03 PM [facility] Bacteria/H LABORATORY PF EPITHELIAL Few None Seen, 12/21/2021 [place] CELLS Few 1:03 PM [facility] Epi/HPF LABORATORY Mucus Present 12/21/2021 [place] 1:03 PM [facility] LABORATORY Specimen Anatomical Collection Method Collection Time Receive d Time (Source) Location / / Volume Laterality Urine URINE SPECIMEN / Non-Blood / 12/21/2021 12:43 022 Unknown Unknown PM CDT 12:43 PM CDT Alma Mckeonlukasz WEIGHT GUESSER URINE Performing Organization Address City/State/ZIP Code Phon e Number [facility] [address] [facility] [place] [address] (ABNORMAL) UA W/ SEDIMENT EXAM REFLEXED PER CRITERIA (12/21/2021 12:43 PM CDT) [facility] Method Time Signature COLOR Ora (A) Yellow Color 12/21/2021 [place] 12:59 PM MEDICAL CDT CENTER LABORATORY CLARITY Clear Clear 12/21/2021 [facility]59 PM [facility] SPECIFIC >=1.030 (A) 1.010, 12/21/2021 [place] GRAVITY,URINE 1.015, 12:59 PM MEDICAL 1.020, 1.025 CDT CENTER LABORATORY PH,URINE 5.5 6.0, 7.0, 12/21/2021 [place] 8.0, 5.5, 12:59 PM MEDICAL 6.5, 7.5, CDT CENTER 8.5 LABORATORY UROBILINOGEN, Normal Normal EU/dl 12/21/2021 [facility] QUALITATIVE 12:59 PM [facility] PROTEIN, Trace (A) Negative 12/21/2021 [facility] UR[facility] mg/dL 12:59 PM [facility] GLUCOSE, Negative Negative 12/21/2021 [facility] URINE mg/dL 12:59 PM [facility] KETONES,URINE Trace (A) Negative 12/21/2021 [place] mg/dL 12:59 PM [facility] BILIRUBIN,URI Negative Negative 12/21/2021 [facility] NE 12:59 PM [facility] OCCULT Negative Negative 12/21/2021 [facility] BLOOD,URINE 12:59 PM [facility] NITRITE Negative Negative 12/21/2021 [facility] 12:59 PM [facility] LEUKOCYTE Negative Negative 12/21/2021 [facility] ESTERASE 12:59 PM [facility] Specimen Anatomical Collection Method Collection Time Receive d Time (Source) Location / / Volume Laterality Urine URINE SPECIMEN / Non-Blood / 12/21/2021 12:43 022 Unknown Unknown PM CDT 12:43 PM CDT Almaviridiana Lezama WEIGHT GUESSER URINE Performing Organization Address City/State/ZIP Code Phon e Number [facility] [address] [place] [address] from Last 3 Months Insurance Payer Benefit Plan Subscriber ID Effective Dates Phone Address Type / Group [employer] [facility] [id number] [facility] [employer] nt [address] [place] [address] Care Teams Cash Control Specialist Relationship Specialty Start Date End Date Clinic, [facility] PCP - General 12/21/21 100 [facility] [place] [address]
--- OUTSIDE RECORDS SUMMARY | 2022-03-08 10:34 | XMS_ITS | Encounter Summary ---
:1955 Author Organization [facility] Address [address] [place] [address] Care Team Providers Name Role Phone Unavailable Primary Care Provider Unavailable Reason for Referral Outpatient (Routine) - Pending Review Specialty Diagnoses / Procedures Referred By Contact Refer red To Contact Colon and Rectal Diagnoses Diverticulitis With Abscess Criselda Burns, [facility] Surgery JL, Gerard.N.P., D.N.P., M.S.N. [address] [place] [phone] Referral ID Status Reason Start Date Expiration Date Visits V isits Requested Authorized [id number] Pending 12/23/2021 12/23/2022 1 1 Review Reason for Visit Auth/Cert Specialty Diagnoses / Procedures Referred By Contact Refer red To Contact Diagnoses Diverticulitis With Abscess DIVERTICULUM ABSCESS Procedures na Referral ID Status Reason Start Date Expiration Date Visits Requ ested Visits Authorized [id number] 1 1 Encounter Details Date Type Department Care Team Description 12/21/2021 - Hospital Encounter [facility] [place] Diverti culitis With 12/23/2021 Don Chung M.D. Abscess (Primary Dx) [facility], [address] [facility], [facility] [address] Floor [phone] [address] [facility] (Work) [place], [place] [phone] (Fax) [phone] Social History Tobacco Use Types Packs/Day Years [...] PM CDT DISCHARGE SUMMARY BRIEF OVERVIEW Hospital: [facility] Discharge Provider: Mary Handley M.D. Primary [...] appointment you may do so by calling [phone]. Follow up will include a laboratory evaluation, [...] Care Everywhere. Oxycodone, Rapid Release (By mouth) (Honduran)Amoxicillin/Clavulanate Potassium (By mouth) (Honduran)Acetaminophen (By mouth) (Honduran)documented in this encounter Medications at Time of [...] care everywhere. Estimated Needs: Total Calorie Needs: 5351-1544 calories/day Method to Estimate Energy Needs: Herrera[place] (Basal to Basal + 10%) Weight Used [...] about patient's nutritional care please contact pager [phone] on weekdays or [phone] on weekends/holidays. Criselda Burns APRN, C.N.P., D.N.P., [...] drain placement. Heparin held. Continue aspirinokay'd with banking consultant Active Issues # Pain, poorly controlled [...] and in communication with the team. Raj Patten, PharmKmiberly., R.Ph. - 12/22/2021 7:14 AM CDT Pharmacist [...] of Systems - ID: WBC 10.2, AF CHAR FILTER TANK TENDER/DAS IAI ASSESSMENT / PLAN - Anticoagulation: Consider stopping SQH prior to procedure today and resuming tonight if patient remains in house, continues home aspirin 81 mg daily - Med Rec: Plavix MAR held - ID: Sinogram for abscess planned for this afternoon. Patient is AF and has mild leukocytosis on CHAR FILTER TANK TENDER/DAS ongoing order with no allergies. Plan to [...] hypertension, status post mitral valve repair 08/10/2011 ([place]) andstatus post hernia repair (1999) who presented [...] He did have a colonoscopy 10-19-2015 at [place] with 1 polyp removed. He denies having had any fever or chills. He has had no hematochezia or melena. He has had slower urine stream but no dysuria or pyuria. He only doctors for hypertension and has been doing great since his mitral valve repair here at [place]. Review of Systems Pertinent items are noted [...] have questions. Thank you, Jessica Quezada R.N., [facility] Clinical Documentation Poultry Boner Query created by: Jessica Quezada R.N., CCDS [...] appointment you may do so by calling [phone]. Follow up will include a laboratory evaluation, [...] approach. Initial attempt to place a 10 Israeli ReSolve Mini drain into the loosely organized pericolonic fluid was unsuccessful due t o the small size of the collection. Therefore, a 17-gauge introducer was used to aspirate 3 mL of fluid, which was sent for analysis. This was discussed after the procedure with Criselda Burns APRN ([id number]). ?? TARGET LOCATION: Small amount of loosely [...] approach. Initial attempt to place a 10 Israeli ReSolve Mini drain into the loosely organized pericolonic fluid was unsuccessful due t o the small size of the collection. Therefore, a 17-gauge introducer was used to aspirate 3 mL of fluid, which was sent for analysis. This was discussed after the procedure with Criselda Burns APRN ([id number]). TARGET LOCATION: Small amount of loosely organized [...] Anaerobic + Susc (12/22/2021 2:42 PM CDT) [facility] gist Method Time Signature Bacterial No growth 12/29/2021 [place] Culture, after 7 7:22 AM CDT Anaerobic + days of Susc incubation. Specimen Anatomical Collection Method Collection Time Receive d Time (Source) Location / / Volume Laterality Fluid (Abdomen) 12/22/2021 2:42 PM 2021 6:20 CDT PM CDT Comment: Specimen Source Site: Fluid Gerard Colmenares APRN.N.P., D.N.P. LAB MICROBIOLOGY - GENERAL ORDERABLES Performing Organization Address City/[facility]/ZIP Code Phon e Number [facility] - [address] [place], [place] [address] [place] [address] [facility] [address] [facility] Fungal Smear (12/22/2021 2:42 PM CDT) athologist Signature Fungal Smear Negative. 12/23/2021 [facility] 8:49 AM CDT Specimen Anatomical Collection Method Collection Time Receive d Time (Source) Location / / Volume Laterality Fluid (Abdomen) 12/22/2021 2:42 PM 2021 6:20 CDT PM CDT Comment: Specimen Source Site: Fluid Gerard Colmenares APRN.N.P., D.N.P. LAB MICROBIOLOGY - GENERAL ORDERABLES Performing Organization Address City/[facility]/ZIP Code Phon e Number [facility] - [address] [place], [place] [address] [place] [address] [facility] [address] [facility] Fungal Culture, Routine (12/22/2021 2:42 PM CDT) [facility] gist Method Time Signature Fungal No growth [...] Address City/State/ZIP Code Phon e Number [facility] - [address] [place] [address] [facility] [place] [address] [address] (ABNORMAL) Gram Stain (12/22/2021 2:42 PM CDT) Analysis Performed At Patho logist Time Signature Gram Stain White blood 12/22/2021 [facility] cells, Many. 10:36 PM CDT (A) Gram Stain GRAM POSITIVE COCCI 12/22/2021 DTL Many. 10:36 PM CDT (A) Comment: Semi-Urgent Result. Semi-Urgent This is a semi-urgent result [facility] - ([facility] Specimen Anatomical Collection Method Collection Time Receive d Time (Source) Location / / Volume Laterality Fluid (Abdomen) 12/22/2021 2:42 PM 2021 6:20 CDT PM CDT Comment: Specimen Source Site: Fluid Alyse Luciano APRN, C.N.P., D.N.P. LAB MICROBIOLOGY - GENERAL ORDERABLES Performing Organization Address City/[facility] Code Phon e Number [facility] - [address] [place] [address] [place] [place] [address] [facility]-[address] (ABNORMAL) Bacterial Culture, Aerobic + Susc (12/22/2021 2:42 PM CDT) Patholo gist Method Time Signature Bacterial ESCHERICHIA COLI 12/25/2021 [facility] Culture, 4+ 2:45 PM CDT Aerobic + (A) Susc Comment: Semi-Urgent Result. Bacterial Culture, Aerobic STREPTOCOCCUS INTERMEDIUS 12/25/2021 2:45 PM CDT DTL + Susc 4+ (A) Comment: Susceptibilities not performed per laboratory criteria. Semi-Urgent This is a semi-urgent result [facility] [employer] ([facility] Specimen Anatomical Collection Method Collection [...] Address City/State/ZIP Code Phon e Number [facility] - [address] [place] [phone] [place] [address] [facility] 200 [facility] (ABNORMAL) CBC with Differential, Blood (12/21/2021 11:37 PM CDT) [facility] Method Time Signature Hemoglobin 12.2 (L) [...] Address City/State/ZIP Code Phon e Number [facility] - [address] [place], [place] [address] [facility] [place] [address] [facility] [address] (ABNORMAL) Basic Metabolic Panel [...] 12/22/2021 DTL Black/ mL/min/BSA 1:25 AM CDT Cameroonian Comment: ----ADDITIONAL INFORMATION---- Estimated GFR calculated using [...] Address City/State/ZIP Code Phon e Number [facility] - [address] [place], [place] [address] [facility] [place] [address] [facility] [address] documented in this encounter [...] 12/22/2021 12/23/2021 acetaminophen tablet 1,000 mg (TYLENOL) 7136 (Given - Provider: Aggie Mendez RChristina.) 3563 (Given - Provider: Rosa Sepulveda R.N.)4353 (Given - Provider: Barbara Nettles - Comment: given 4hrs after last dose)6582 (Given - Provider: Trixie Davis RChristina.)2253 (Given - Provider: Tawny Blas R.N.) 0758 [...] tablet 75 mg (PLAVIX) 2128 (Held by [facility] er - Provider: Alyse Luciano APRN, C.N.P., [...] Jerry Beaulieu R.N.) 0650 (Stopped - Provider: eJrry hester R.N.) 60 mL/hr, intravenous, Continuous, Starting [...]
--- OUTSIDE RECORDS SUMMARY | 2022-03-08 10:34 | XMS_ITS | Encounter Summary ---
:1955 Author Organization [facility] Address [address] [place] [address] Care Team Providers Name Role Phone Unavailable Primary Care Provider Unavailable Encounter Details Date Type Department Care Team Description 11/20/2018 Orders Only Department of [facility] Javier Clinical R esearch Exam Radiology, Jamal Acevedo M.D. (Primary Dx) [facility] [place], [facility] [address] [place], [place] [address] [facility] [address] [place], [place] [phone] [phone] (Work) [phone] Social History Tobacco Use Types Packs/Day Years Used Date Smoking Tobacco: Unknown Sex Assigned at Date Recorded Not on file documented as of this encounter Plan of Treatment Not on filedocumented as of this encounter Visit Diagnoses Diagnosis Clinical Research Exam - Primary documented in this encounter
--- OUTSIDE RECORDS SUMMARY | 2022-03-08 10:34 | XMS_ITS | Clinical Summary ---
:1955 Author Organization [facility] Address [address] [place] [address] Care Team Providers Name Role Phone Unavailable Primary Care Provider Unavailable Source Comments Patient records contain information from all sites at [facility]. For routine questions regarding patient records, call [phone] during business hours, M-F 8:00 AM - 5:00 PM Central Time. Record requests for emergency care only can be directed to [phone] at any time.[facility] Allergies No known active allergies Medications Medication [...] Completed 12/22/2021 Medical Devices Implanted Type Area Audio/Visual Operator Device Shelf Model / Identifier Expiration Serial / Date Lot Band-Annuloplasty Flex-25mm X 63mm - Winter [id number] Cardiac Valve Other/Legacy - [employer] Implanted: Qty: 1 on 08/10/2011 Prosthesis See Implant Description Description: Device Audio/Visual Operator - [facility] Body Location - Other. Mitral. Device Status Text - [id number]. Procedures Procedure Name Priority Date/Time Associated Comments [...] approach. Initial attempt to place a 10 [place] ReSolve Mini drain into the loosely organized pericolonic fluid was unsuccessful due t o the small size of the collection. Therefore, a 17-gauge introducer was used to aspirate 3 mL of fluid, which was sent for analysis. This was discussed after the procedure with Criselda Burns APRN ([id number]). ?? TARGET LOCATION: Small amount of loosely [...] approach. Initial attempt to place a 10 [place] ReSolve Mini drain into the loosely organized pericolonic fluid was unsuccessful due t o the small size of the collection. Therefore, a 17-gauge introducer was used to aspirate 3 mL of fluid, which was sent for analysis. This was discussed after the procedure with Criselda Burns APRN ([id number]). TARGET LOCATION: Small amount of loosely organized [...] Aerobic + Susc (12/22/2021 2:42 PM CDT) [facility] Method Time Signature Bacterial ESCHERICHIA COLI 12/25/2021 DTL Culture, 4+ 2:45 PM CDT Aerobic + (A) Susc Comment: Semi-Urgent Result. Bacterial Culture, Aerobic STREPTOCOCCUS INTERMEDIUS 12/25/2021 2:45 PM CDT DTL + Susc 4+ (A) Comment: Susceptibilities not performed per laboratory criteria. Semi-Urgent This is a semi-urgent result [facility] - ([place]) [facility] Specimen Anatomical Collection Method Collection [...] MICROBIOLOGY - GENERAL ORDERABLES Performing Organization Address City/[facility] Phon e Number [facility] - [id number] [place] [address] Fungal Smear (12/22/2021 2:42 PM CDT) P athologist Signature Fungal Smear Negative. 12/23/2021 DTL 8:49 AM CDT Specimen Anatomical Collection Method Collection Time Receive d Time (Source) Location / / Volume Laterality Fluid (Abdomen) 12/22/2021 2:42 PM 2021 6:20 CDT PM CDT Comment: Specimen Source Site: Fluid hSoaib Colmenares APRNN.P., D.N.P. LAB MICROBIOLOGY - GENERAL ORDERABLES Performing Organization Address City/[facility] Phon e Number [facility] - [address] (ABNORMAL) Gram Stain (12/22/2021 2:42 PM CDT) Analysis Performed At Patho logist Time Signature Gram Stain White blood 12/22/2021 DTL cells, Many. 10:36 PM CDT (A) Gram Stain GRAM POSITIVE COCCI 12/22/2021 DTL Many. 10:36 PM CDT (A) Comment: Semi-Urgent Result. Semi-Urgent This is a semi-urgent result [facility] ([place] Specimen Anatomical Collection Method Collection Time Receive d Time (Source) Location / / Volume Laterality Fluid (Abdomen) 12/22/2021 2:42 PM 2021 6:20 CDT PM CDT Comment: Specimen Source Site: Fluid Gerard Colmenares APRN.N.P., D.N.P. LAB MICROBIOLOGY - GENERAL ORDERABLES Performing Organization Address City/[facility] Phon e Number [facility] - [address] [place] [address] Fungal Culture, Routine (12/22/2021 2:42 PM CDT) [employer] gist Method Time Signature Fungal No growth 01/16/2022 DTL Culture, after 24 1:02 AM CDT Routine days of incubation. Specimen Anatomical Collection Method Collection Time Receive d Time (Source) Location / / Volume Laterality Fluid (Abdomen) 12/22/2021 2:42 PM 2021 6:20 CDT PM CDT Comment: Specimen Source Site: Fluid Shoaib Colmenares APRNN.P., D.N.P. LAB MICROBIOLOGY - GENERAL ORDERABLES Performing Organization Address City/[facility]/ZIP Code Phon e Number [facility] - [address] Bacterial Culture, Anaerobic + Susc (12/22/2021 2:42 PM CDT) [employer] gist Method Time Signature Bacterial No growth [...] Organization Address City/State/ZIP Code Phon e Number [facility] - 200 [place], [place] [address] [facility] [place] [address] [facility] 200 [facility] (ABNORMAL) CBC with Differential, Blood (12/21/2021 11:37 PM CDT) [facility] Method Time Signature Hemoglobin 12.2 (L) [...] Organization Address City/State/ZIP Code Phon e Number [facility] - 200 [place], [place] [address] [facility] [place] [address] [facility] 200 [facility] (ABNORMAL) Basic Metabolic Panel (12/21/2021 11:37 PM [...] 12/22/2021 DTL Black/ mL/min/BSA 1:25 AM CDT Ghanaian Comment: ----ADDITIONAL INFORMATION---- Estimated GFR calculated using [...] Organization Address City/State/ZIP Code Phon e Number [facility] - [address] [place], [place] [address] [facility] [place] [address] [facility] [address] ABDOMEN [...] Effective Phone Address T [employer] Dates [facility] [id number] 2010-Pr OCC CLAIMS I ndemnity [employer] [address] [place] [address]
--- OUTSIDE RECORDS SUMMARY | 2022-03-08 10:34 | XMS_ITS | Encounter Summary ---
:1955 Author Organization [facility] Address [address] [place] [address] Care Team Providers Name Role Phone Unavailable Primary Care Provider Unavailable Reason for Visit Reason Comments Update on antibiotics Encounter Details Date Type Department Care Team Description 12/31/2021 Clinical Communication Division of Colon Hafsa Handley Update on and Rectal Surgery Jeri Ochoa antibiotics in [place], [address] [place] [address] [address] [facility] [address] [place], [place] [phone] (Work) [phone] Social History Tobacco Use Types Packs/Day Years [...] get a referral for a colonoscopy in [place]. [phone] if you need to talk with him. documented in this encounter Plan of Treatment Not on filedocumented as of this encounter Visit Diagnoses Not on filedocumented in this encounter
--- OUTSIDE RECORDS SUMMARY | 2022-03-08 10:34 | XMS_ITS | Encounter Summary ---
:1955 Author Organization [facility] Address [address] [place] [address] Care Team Providers Name Role Phone Unavailable Primary Care Provider Unavailable Encounter Details Date Type Department Care Team Description 12/30/2021 Orders Only Division of Colon and Criselda Burks , Rectal Surgery in [place], [place] [address] [place] [address] Social History Tobacco Use Types Packs/Day [...]
--- OUTSIDE RECORDS SUMMARY | 2022-03-08 10:34 | XMS_ITS | Encounter Summary ---
:1955 Author Organization [facility] Address [address] [place] [address] Care Team Providers Name Role Phone Unavailable Primary Care Provider Unavailable Reason for Visit MRI/CAT/PET Scan (Routine) - Canceled Specialty Diagnoses / Procedures Referred By Contact Refer red To Contact Radiology Diagnoses Clinical Research Exam Grayson Javier M.D. [facility] Procedures CT Cardiac Angiogram Structure Morphology with IV Contrast IL CTA HRT CORONARY W CNTRST HC CTA HRT CORONARY W CNTRST [address] [place] [phone] Referral ID Status Reason Start Date Expiration Date Visits V isits Requested Authorized [id number] Canceled 11/20/2018 11/20/2019 1 1 Encounter Details Date Type Department Care Team Description 12/31/2018 Hospital Encounter Department of Darren Javier (Patient: Radiology, Jamal Acevedo M.D. Request) [facility], in [address] [place] [address] [place] [phone] [place], [place] [phone] (Work) [phone] Social History Tobacco Use Types Packs/Day Years [...]
--- OUTSIDE RECORDS SUMMARY | 2022-03-08 10:34 | XMS_ITS | Encounter Summary ---
:1955 Author Organization [facility] Address [address] [place] [address] Care Team Providers Name Role Phone Unavailable Primary Care Provider Unavailable Encounter Details Date Type Department Care Team Description 12/28/2021 Clinical Communication Division of Colon and Mathew Handley, Rectal Surgery in [place], [place] [address] [facility] [address] [place] [phone] Social History Tobacco Use Types Packs/Day Years [...]
--- OUTSIDE RECORDS SUMMARY | 2022-03-08 10:34 | XMS_ITS | Encounter Summary ---
:1955 Author Organization [facility] Address [address] [place] [address] Care Team Providers Name Role Phone Unavailable Primary Care Provider Unavailable Encounter Details Date Type Department Care Team Description 01/07/2019 Orders Only Department of Grayson Javier Clinical R esearch Exam Radiology, Jamal Acevedo M.D. (Primary Dx) [facility], in [place], [facility] [address] [place], [place] [address] [facility] [address] [place], [place] [phone] (Work) [phone] Social History Tobacco Use Types Packs/Day Years Used Date Smoking Tobacco: Unknown Sex Assigned at Date Recorded Not on file documented as of this encounter Plan of Treatment Not on filedocumented as of this encounter Visit Diagnoses Diagnosis Clinical Research Exam - Primary documented in this encounter
--- OUTSIDE RECORDS SUMMARY | 2022-03-08 10:34 | XMS_ITS | Encounter Summary ---
:1955 Author Organization [facility] Address [address] [place] [address] Care Team Providers Name Role Phone Unavailable Primary Care Provider Unavailable Encounter Details Date Type Department Care Team Description 12/31/2018 Orders Only Department of Osei Perez, Clinical R esearch Exam Radiology, [place] Jeri (Primary Dx) [facility], in [address] [place] [address] [place] [address] [place], [place] [phone] (Work) [phone] Social History Tobacco Use Types Packs/Day Years Used Date Smoking Tobacco: Unknown Sex Assigned at Date Recorded Not on file documented as of this encounter Plan of Treatment Not on filedocumented as of this encounter Visit Diagnoses Diagnosis Clinical Research Exam - Primary documented in this encounter
--- OUTSIDE RECORDS SUMMARY | 2022-03-08 10:35 | XMS_ITS | Encounter Summary ---
:1955 Author Organization [facility] Address [address] [place] [address] Care Team Providers Name Role Phone Unavailable Primary Care Provider Unavailable Encounter Details Date Type Department Care Team Description 08/09/2011 Hospital Encounter HX RST [facility] FLOOR [facility] M.D. [address] [address], [address] [place] [address] (Wo rk) Social History Tobacco Use Types [...]
--- OUTSIDE RECORDS SUMMARY | 2022-03-08 10:35 | XMS_ITS | Encounter Summary ---
:1955 Author Organization [facility] Address [address] [place] [address] Care Team Providers Name Role Phone Unavailable [...]
--- OUTSIDE RECORDS SUMMARY | 2022-03-08 10:35 | XMS_ITS | Continuity of Care Document ---
:1955 Author Organization [facility] Care Team Providers Name Role Phone [facility] Unavailable Unavailable Problems Combined list of problems from Department of Defense and Veterans [facility] facilities. It does not include entries that [...] CBOC postprocedural stateswith Provider Comments: H/O: surgery ([facility] [id number]) Diagnosis: Active Diagnosis DYANA C ICD-10-CM Z23 [...] DAY ATENOLOL TAKE ONE ORALLY ACTIVE 01/25/2023 [id number] PECHOL T,E 01/24/ DYANA C 25MG TAB TABLET 2 MIL J 2021 AGARWAL BY MOUTH CBOC EVERY DAY ATENOLOL TAKE ONE ORALLY 09/02/2021 [id number] ANAM UGISHA 09/03/ DYANA C 25MG TAB TABLET 2 ,BAUDILIO2020 AGARWAL BY MOUTH CBOC EVERY DAY CLOPIDOGREL TAKE ONE ORALLY ACTIVE 01/25/2023 [id number] P ECHOLT,E 01/27/ DYANA C BISULFATE TABLET 2 MIL J 2021 AGARWAL 75MG TAB BY MOUTH CBOC EVERY DAY CLOPIDOGREL TAKE ONE ORALLY 09/08/2021 [id number] KAMUGISHA 09/08/ DYANA C BISULFATE TABLET 2 ,BAUDILIO2020 AGARWAL 75MG TAB BY MOUTH CBOC EVERY DAY LISINOPRIL TAKE ORALLY ACTIVE 01/25/2023 [id number] PECHOLT ,E 01/24/ DYANA C 40MG TAB ONE-HALF 2 MIL J 2021 AGARWAL TABLET CBOC BY MOUTH EVERY DAY LISINOPRIL TAKE ORALLY 09/02/2021 [id number] KAMUGI SHA 09/07/ DYANA C 40MG TAB ONE-HALF 2 ,BAUDILIO2020 AGARWAL TABLET CBOC BY MOUTH EVERY DAY Immunizations Combined list of available immunizations from the Department of Defense and Veterans Affairs facilities. 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 [phone]). NDC:[id number] [phone].Ad dress:[address].MN.55 [id number] Dosage: ML 0.5 COVID-19 2 complet PFR; LY LE C (PFIZER), 2020 ed [id number]; PE ARSON MRNA, LNP-S, 02 CBOC PF, 30 1 MCG/0.3 ML DOSE COVID-19 1 complet PFR; LY LE C (PFIZER), 2020 ed [id number]; PE ARSON MRNA, LNP-S, 02 CBOC PF, 30 1 MCG/0.3 ML DOSE INFLUENZA, complet Partne r:C [place] INJECTABLE, 2019 ed CN2.Admi n [place] NM QUADRIVALENT, istere d HCS PRESERVATIVE by:-[facility] 1177.([phone]). ND:[phone].Ad dress:[address].MN.55 [id number] Dosage: ML 0.5 INFLUENZA, complet [place] UNSPECIFIED 2019 ed OL IS NM FORMULATION HC S TDAP complet [place] 2020 ed OLIS [facility] Results Combined list of recent chemistry, hematology [...] 2020 02:11 PM [PRESENCE] Reporting La b: [facility] IN STOOL [address] [facility] [address] BY Performing Lab: [facility] IMMUNOASSA [address] [facility] [address] Y --1ST SPECIMEN CBC LEUKOCYTES 5.86 4.0 - 11.0 09/08 Specimen T ype: BLOOD DYANA C [#/VOLUME] No comment en oneal. ANY IN BLOOD Ordering Provi amy: BAUDILIO RENE BY Report Released Date/Time: Sep 01, 2020 02:11 PM AUTOMATED Reporting Lab : [facility] COUNT [address] [facility] [address] Performing Lab: [facility] [address] [facility] [address] CBC ERYTHROCYT 4.64 4.6 - 6.2 09/08 Specimen Ty pe: BLOOD DYANA C ES /2020 No comment enter ed. AGARWAL [#/VOLUME] Ordering Pro vider: BAUDILIO RENE IN BLOOD Report Release d Date/Time: Sep 01, 2020 02:11 PM BY Reporting Lab: [facility] AUTOMATED [facility] [address] COUNT Performing Lab: [facility] [address] [facility] [address] CBC HEMOGLOBIN 15.3 13.5 - 09/08 Specimen Type : BLOOD DYANA C [MASS/VOLU 17.9 No comment en tered. AGARWAL ME] IN Ordering Provid er: BAUDILIO RENE BLOOD Report Released Date/Time: Sep 01, 2020 02:11 PM Reporting Lab: [facility] [place] [address] Performing Lab: [facility] [place] [address] CBC HEMATOCRIT 46.6 41 - 54 09/08 Specimen Type : BLOOD DYANA C [VOLUME /2020 No comment enter ed. AGARWAL FRACTION] Ordering Prov ider: BAUDILIO RENE OF BLOOD Report Release d Date/Time: Sep 01, 2020 02:11 PM BY Reporting Lab: [facility] AUTOMATED [facility] [address] COUNT Performing Lab: [facility] [place] [address] CBC MCV 100.4 80 - 100 09/08 H Specimen Type: BLOOD YDANA C [ENTITIC /2020 No comment cassius AGARWAL VOLUME] BY Ordering Pro vider: BAUDILIO RENE AUTOMATED Report Releas ed Date/Time: Sep 01, 2020 02:11 PM COUNT Reporting Lab: [facility] [address] [address] Performing Lab: [facility] [address] [facility] [address] CBC MCH 33.0 27 - 33 09/08 Specimen Type: B LOOD DYANA C [ENTITIC /2020 No comment cassius AGARWAL MASS] BY Ordering Provi amy: BAUDILIO RENE AUTOMATED Report Releas ed Date/Time: Sep 01, 2020 02:11 PM COUNT Reporting Lab: [facility] [place] [address] Performing Lab: [facility] HCS [place] [address] CBC MCHC 32.8 32.0 - 09/08 Specimen Type: B LOOD DYANA C [MASS/VOLU 37.5 /2020 No comment en oneal. ANY ME] BY Ordering Provid er: BAUDILIO RENE AUTOMATED Report Releas ed Date/Time: Sep 01, 2020 02:11 PM COUNT Reporting Lab: [facility] [address] [place] [facility] [address] Performing Lab: [facility] [place] [address] CBC PLATELETS 204 150 - 400 09/08 Specimen Typ e: BLOOD DYANA C [#/VOLUME] /2020 No comment en tered. AGARWAL IN BLOOD Ordering Provi amy: BAUDILIO RENE BY Report Released Date/Time: Sep 01, 2020 02:11 PM AUTOMATED Reporting Lab : [facility] COUNT [address] [place] [facility] [address] Performing Lab: [facility] [place] [address] CBC PLATELET 9.6 7.4 - 10.4 09/08 Specimen Typ e: BLOOD DYANA C MEAN /2020 No comment enter ed. ANY VOLUME Ordering Provid er: BAUDILIO RENE [ENTITIC Report Release d Date/Time: Sep 01, 2020 02:11 PM VOLUME] IN Reporting La b: [facility] BLOOD BY [address] [facility] [address] AUTOMATED Performing La b: [facility] COUNT [address] [address] CBC ERYTHROCYT 12.2 11.5 - 09/08 Specimen Type : BLOOD DYANA C E 14.5 /2020 No comment enter ed. ANY DISTRIBUTI Ordering Pro vider: BAUDILIO RENE ON WIDTH Report Release d Date/Time: Sep 01, 2020 02:11 PM [RATIO] BY Reporting La b: [facility] AUTOMATED [address] [facility] [facility] [address] COUNT Performing Lab: [facility] [address] [facility] [address] COMPREHEN CREATININE 1.1 0.7 - 1.2 09/08 Specimen Type: PLASMA DYANA C SIVE [MASS/VOLU /2020 No comment en tered. AGARWAL METABOLIC ME] IN Ordering Prov ider: BAUDILIO RENE CBOC PANEL+MG SERUM OR Report Releas ed Date/Time: Sep 01, 2020 02:11 PM PLASMA Reporting Lab: [facility] [place] [address] Performing Lab: [facility] [address] [facility] [address] COMPREHEN UREA 13 8 - 26 09/08 Specimen Type: PLASMA DYANA C SIVE NITROGEN /2020 No comment cassius AGARWAL METABOLIC [MASS/VOLU Ordering P rovider: NATASHA RENEA CBOC PANEL+MG ME] IN Report Release d Date/Time: Sep 01, 2020 02:11 PM SERUM OR Reporting Lab: [facility] PLASMA [address] [address] Performing Lab: [facility] [address] [facility] [address] COMPREHEN GLUCOSE 89 70 - 105 09/08 Specimen Type : PLASMA DYANA C SIVE [MASS/VOLU /2020 No comment en tered. AGARWAL METABOLIC ME] IN Ordering Prov ider: BAUDILIO RENE CBOC PANEL+MG SERUM OR Report Releas ed Date/Time: Sep 01, 2020 02:11 PM PLASMA Reporting Lab: [facility] [address] [address] Performing Lab: [facility] [address] [address] COMPREHEN SODIUM 138 136 - 145 09/08 Specimen Typ e: PLASMA DYANA C SIVE [MOLES/VOL No comment en tered. AGRAWAL METABOLIC UME] IN Ordering Prov ider: KAMTERESAANATASHAA CBOC PANEL+MG SERUM OR Report Releas ed Date/Time: Sep 01, 2020 02:11 PM PLASMA Reporting Lab: [facility] [address] [address] Performing Lab: [facility] [address] [facility] [address] COMPREHEN POTASSIUM 4.3 3.5 - 5.1 09/08 Specimen T ype: PLASMA DYANA C SIVE [MOLES/VOL No comment en tered. AGARWAL METABOLIC UME] IN Ordering Prov ider: KAMTERESAA,BAUDILIO CBOC PANEL+MG SERUM OR Report Releas ed Date/Time: Sep 01, 2020 02:11 PM PLASMA Reporting Lab: [facility] [address] [facility] [address] Performing Lab: [facility] [address] [facility] [address] COMPREHEN CHLORIDE 104 98 - 107 09/08 Specimen Typ e: PLASMA DYANA C SIVE [MOLES/VOL /2020 No comment en tered. ANY METABOLIC UME] IN Ordering Prov ider: BAUDILIO RENE CBOC PANEL+MG SERUM OR Report Releas ed Date/Time: Sep 01, 2020 02:11 PM PLASMA Reporting Lab: [facility] [address] [facility] [address] Performing Lab: [facility] [address] [facility] [address] COMPREHEN CARBON 27 22 - 29 09/08 Specimen Type: PLASMA DYANA C SIVE DIOXIDE, /2020 No comment ente red. ANY METABOLIC TOTAL Ordering Prov ider: BAUDILIO RENE CBOC PANEL+MG [MOLES/VOL Report Rele ased Date/Time: Sep 01, 2020 02:11 PM UME] IN Reporting Lab: [facility] SERUM OR [address] [facility] [facility] [address] PLASMA Performing Lab: [facility] [address] [address] COMPREHEN CALCIUM 9.0 8.4 - 10.2 09/08 Specimen Ty pe: PLASMA DYANA C SIVE [MASS/VOLU /2020 No comment en tered. ANY METABOLIC ME] IN Ordering Prov ider: BAUDILIO RENE CBOC PANEL+MG SERUM OR Report Releas ed Date/Time: Sep 01, 2020 02:11 PM PLASMA Reporting Lab: [facility] [address] [address] Performing Lab: [facility] [address] [facility] [address] COMPREHEN PROTEIN 7.4 6.0 - 8.3 09/08 Specimen Typ e: PLASMA DYANA C SIVE [MASS/VOLU /2020 No comment en tered. ANY METABOLIC ME] IN Ordering Prov ider: BAUDILIO RENE CBOC PANEL+MG SERUM OR Report Releas ed Date/Time: Sep 01, 2020 02:11 PM PLASMA Reporting Lab: [facility] [address] [address] Performing Lab: [facility] [address] [facility] [address] COMPREHEN ALBUMIN 4.3 3.5 - 5.2 09/08 Specimen Typ e: PLASMA DYANA C SIVE [MASS/VOLU /2020 No comment en teredin. ANY METABOLIC ME] IN Ordering Prov ider: BAUDILIO RENE CBOC PANEL+MG SERUM OR Report Releas ed Date/Time: Sep 01, 2020 02:11 PM PLASMA Reporting Lab: [facility] [address] [address] Performing Lab: [facility] [address] [facility] [address] COMPREHEN BILIRUBIN. 0.7 0.2 - 1.2 09/08 Specimen Type: PLASMA DYANA C SIVE TOTAL /2020 No comment enter ed. ANY METABOLIC [MASS/VOLU Ordering P rovider: BAUDILIO RENE CBOC PANEL+MG ME] IN Report Release d Date/Time: Sep 01, 2020 02:11 PM SERUM OR Reporting Lab: [facility] PLASMA [address] [facility] [address] Performing Lab: [facility] [address] [facility] [address] COMPREHEN MAGNESIUM 2.2 1.6 - 2.6 09/08 Specimen T ype: PLASMA DYANA C SIVE [MASS/VOLU /2020 No comment en tered. AGARWAL METABOLIC ME] IN Ordering Prov ider: BAUDILIO RENE CBOC PANEL+MG SERUM OR Report Releas ed Date/Time: Sep 01, 2020 02:11 PM PLASMA Reporting Lab: [facility] [address] [facility] [address] Performing Lab: [facility] [address] [facility] [address] COMPREHEN ANION GAP 7 5 - 15 09/08 Specimen Typ e: PLASMA DYANA C SIVE IN SERUM /2020 No comment ente red. ANY METABOLIC OR PLASMA Ordering Pr ovider: BAUDILIO RENE CBOC PANEL+MG Report Release d Date/Time: Sep 01, 2020 02:11 PM Reporting Lab: [facility] [address] [address] Performing Lab: [facility] [address] [facility] [address] COMPREHEN ALKALINE 57 40 - 150 09/08 Specimen Typ e: PLASMA DYANA C SIVE PHOSPHATAS /2020 No comment en tered. ANY METABOLIC E Ordering Prov ider: BAUDILIO RENE CBOC PANEL+MG [ENZYMATIC Report Rele ased Date/Time: Sep 01, 2020 02:11 PM ACTIVITY/V Reporting La b: [facility] HCS OLUME] IN [address] [facility] [address] SERUM OR Performing Lab : [facility] PLASMA [address] [facility] [address] COMPREHEN ALANINE 18 <55 - 55 09/08 Specimen Type : PLASMA DYANA C SIVE AMINOTRANS /2020 No comment en tered. ANY METABOLIC FERASE Ordering Prov ider: BAUDILIO RENE CBOC PANEL+MG [ENZYMATIC Report Rele ased Date/Time: Sep 01, 2020 02:11 PM ACTIVITY/V Reporting La b: [facility] H[facility] OLUME] IN ONE [facility] [address] SERUM OR Performing Lab : [facility] PLASMA [address] [facility] [address] COMPREHEN ASPARTATE 19 5 - 34 09/08 Specimen Typ e: PLASMA DYANA C SIVE AMINOTRANS /2020 No comment en tered. ANY METABOLIC FERASE Ordering Prov ider: BAUDILIO RENE CBOC PANEL+MG [ENZYMATIC Report Rele ased Date/Time: Sep 01, 2020 02:11 PM ACTIVITY/V Reporting La b: [facility] OLUME] IN ONE [facility] [address] SERUM OR Performing Lab : [facility] PLASMA [address] [facility] [address] COMPREHEN GLOMERULA 68 60 09/08 Specimen Ty pe: PLASMA DYANA C SIVE R No comment enter ed. ANY METABOLIC FILTRATION Ordering P rovider: BAUDILIO RENE CBOC PANEL+MG RATE/1.73 Report Relea sed Date/Time: Sep 01, 2020 02:11 PM SQ Reporting Lab: [facility] HCS M.PREDICTE [facility] [address] D [VOLUME Performing La b: [facility] H[facility] RATE/AREA] [facility] [address] IN SERUM, PLASMA OR BLOOD BY CREATININE -BASED FORMULA (CKD-EPI) HEMOGLOBI HEMOGLOBIN 5.4 4.0 - 6.0 09/08 Specimen Type: BLOOD DYANA C N A1C A1C/HEMOGL /2020 No comment en tered. ANY OBIN.TOTAL Ordering Pro vider: BAUDILIO RENE CBFRENCH IN BLOOD Report Release d Date/Time: Sep 01, 2020 02:11 PM Reporting Lab: [facility] [place] [address] Performing Lab: [facility] [address] [facility] [address] LIPID CHOLESTERO 198 <199 - 199 09/08 Specimen T ype: PLASMA DYANA C PANEL,FAS L /2020 No comment ent ered. ANY TING [MASS/VOLU Ordering Pro vider: BAUDILIO RENE CBFRENCH ME] IN Report Released Date/Time: Sep 01, 2020 02:11 PM SERUM OR Reporting Lab: [facility] PLASMA [address] [facility] [address] Performing Lab: [facility] [address] [facility] [address] LIPID TRIGLYCERI 112 <149 - 149 09/08 Specimen T ype: PLASMA DYANA C PANEL,FAS DE /2020 No comment ent ered. ANY CORREAG [MASS/VOLU Ordering Pro vider: KAMBAUDILIO ESCALANTE CBFRENCH ME] IN Report Released Date/Time: Sep 01, 2020 02:11 PM SERUM OR Reporting Lab: [facility] PLASMA [address] [facility] [address] Performing Lab: [facility] [address] [facility] [address] LIPID CHOLESTERO 42 40 09/08 Specimen Type : PLASMA DYANA C PANEL,FAS L IN HDL /2020 No comment en tered. ANY TING [MASS/VOLU Ordering Pro vider: BAUDILIO RENE CBFRENCH ME] IN Report Released Date/Time: Sep 01, 2020 02:11 PM SERUM OR Reporting Lab: [facility] PLASMA [address] [facility] [address] Performing Lab: [facility] [address] [facility] [address] LIPID CHOLESTERO 134 <99 - 99 09/08 H Specimen Typ e: PLASMA DYANA C PANEL,FAS L IN LDL /2020 No comment en tered. ANY TING [MASS/VOLU Ordering Pro vider: KAMBAUDILIO ESCALANTE CBFRENCH ME] IN Report Released Date/Time: Sep 01, 2020 02:11 PM SERUM OR Reporting Lab: [facility] PLASMA BY [address] [facility] [address] CALCULATIO Performing L ab: [facility] [place] [address] LIPID CHOLESTERO 22 <29 - 29 09/08 Specimen Typ e: PLASMA DYANA C PANEL,FAS L IN VLDL No comment e ntered. ANY TING [MASS/VOLU Ordering Pro vider: BAUDILIO RENE ME] IN Report Released Date/Time: Sep 01, 2020 02:11 PM SERUM OR Reporting Lab: [facility] PLASMA BY [address] [facility] [address] CALCULATIO Performing L ab: [facility] [place] [address] LIPID CHOLESTERO 156 <129 - 129 09/08 H Specimen T ype: PLASMA DYANA C PANEL,FAS L NON HDL /2020 No comment e ntered. ANY TING [MASS/VOLU Ordering Pro vider: BAUDILIO RENE IA] IN Report Released Date/Time: Sep 01, 2020 02:11 PM SERUM OR Reporting Lab: [facility] PLASMA [place] [address] Performing Lab: [facility] [place] [address] PSA PROSTATE 3.58 <3.99 - 09/08 Specimen Type: SERUM DYANA C SPECIFIC 3. No comment dilciae red. AGARWAL AG Ordering Provid er: BAUDILIO RENE [MASS/VOLU Report Relea sed Date/Time: Sep 01, 2020 02:11 PM ME] IN Reporting Lab: [facility] SERUM OR [address] Sean NIEVES [facility] [address] PLASMA Performing Lab: [facility] [address] [facility] [address] Vital Signs Combined list of inpatient and [...] Location Location Encounter Encounter Reason Attending ADM AL Stat us Disposition Source Details Type Number For Provider Date Date Visit Outpatient 09/07 [place] Encounter [id number] [facility] ADM [id number] Diagnos JOSHUA,OWEN 09/26 LY LE C SARSCOV2 [id number] is: FLORENTINO PEARSO N 30MCG/0.3M 14 ICD-10- CBOC L 1ST CM Z23 Encount er for immuniz ation<b r/>with Provide r Comment s: Encount er for Immuniz ation ADM 88242-2 Diagnos RYLAN,Qian 10/17 LY LE C SARSCOV2 [id number] is: WICHO K PEAR SON 30MCG/0.3M 22 ICD-10- CBOC L 2ND CM Z23 Encount er for immuniz ation<b r/>with Provide r Comment s: Encount er for Immuniz ation IMMUNIZATI 51028-761 Diagnos BERTRAM SILVEIRA 04/14 DYANA C ON ADMIN [id number] is: JOSEPHINE PEARSO N 54 ICD-10- CBOC CM Z23 Encount er for immuniz ation<b r/>with Provide r Comment s: Encount er for any immuniz ation Outpatient [id number] 05/24 [place] Encounter [id number] /2020 [facility] OFFICE O/P 61953-1.61 Diagnos CORNEL,R 08/31 DYANA Gee EST LOW [id number] is: CALIN A /2021 MIAH SON 20-29 MIN 33 ICD-10- II CBOC CM Z98.890 Other specifi ed postpro cedural states< br/>wit h Provide r Comment s: H/O: surgery (SCT [id number]) Outpatient [id number] 07/ [place] Encounter [id number] /2021 [facility] Outpatient 87137-0.61 SA JASMEET 12/22 [place] Encounter [id number] RA R /2021 [facility] Outpatient 56950-6.67 SALVADOR SHANNON 12/23 [place] Encounter [id number] JEFF Ochoa RN /2021 [facility] Outpatient 34542-5.61 KELLY ARNOLD 12/23 [place] Encounter [id number] ISTEN L /2021 [facility] Outpatient [id number] 07 [place] En[place] [id number] /2021 [facility] Outpatient [id number] 01/10 [place] En[place] [id number] /2021 [facility] Outpatient [id number] 08 [place] Encounter [id number] /2021 [facility] Social History Combined list of available smoking, tobacco, and other social history [facility]. Social History Type Response Date Comment Source Tobacco smoking VA-TOBACCO FORMER USER 08/31/2021 [facility] status NHIS History of tobacco NM-TOBACCO QUIT 5 TO < 08/31/2021 DYANA AGARWAL [facility] use 15 YRS History of tobacco VA-TOBACCO FORMER USER 09/01/2020 DYANA AGARWAL [facility] use Plan of Care List of future care activities from Department of [facility] Affairs facilities. Additional future care activities may be listed in the Assessment and Plan section. Date/Time Care Activity Care Activity Detail Facility 03/07/2022 AMBULATORY - NONE AMBULATORY - NONE [facility]
--- OUTSIDE RECORDS SUMMARY | 2022-03-08 10:35 | XMS_ITS | Encounter Summary ---
:[address] [facility] Address [address] [place] [address] Care Team Providers Name Role Phone Unavailable [...]
--- OUTSIDE RECORDS SUMMARY | 2022-03-08 10:35 | XMS_ITS | Encounter Summary ---
:1955 Author Organization [facility] Address [address] [place] [address] Care Team Providers Name Role Phone Unavailable [...]
--- OUTSIDE RECORDS SUMMARY | 2022-03-08 10:35 | XMS_ITS | Encounter Summary ---
:1955 Author Organization [facility] Address [address] [place] [address] Care Team Providers Name Role Phone Unavailable [...]
--- OUTSIDE RECORDS SUMMARY | 2022-03-08 10:35 | XMS_ITS | Encounter Summary ---
:1955 Author Organization [facility] Address [address] [place] [address] Care Team Providers Name Role Phone Unavailable Primary Care Provider Unavailable Encounter Details Date Type Department Care Team Description 07/18/2011 Hospital Encounter HX RST [facility] EXERCISE LAB Qian Bourne M.D. [address] [place] [address] Social History Tobacco Use Types Packs/Day Years [...] nts EXERCISE ECG Routine 07/18/2011 12:40 PM [facility] documented in this encounter Results Exercise ECG (07/18/2011 12:40 PM [facility]) Specimen (Source) Anatomical Collection Method Collection Time Re ceived Time Location / / Volume Laterality 07/18/2011 12:40 PM [facility] Bassam Bourne M.D. CV STRESS PROCEDURES Performing Organization Address City/State/ZIP Code Phon e Number HX [place] CONVERSION documented in this encounter Visit Diagnoses Not on filedocumented in this encounter
--- OUTSIDE RECORDS SUMMARY | 2022-03-08 10:35 | XMS_ITS | Encounter Summary ---
:1955 Author Organization [facility] Address [address] [place] [address] Care Team Providers Name Role Phone Unavailable [...] 10:30 NIBP - Value fr om AM MANAGER BUSINESS CONTINU[employer]. Pulse 72 08/11/2011 7:45 AM Value from Ch art[employer]. MANAGER BUSINESS [employer]INU[employer] Temperature - - Respiratory Rate 16 08/13/2011 5:00 AM Value from C [employer]art[employer]. MANAGER BUSINESS [employer]INUITY Oxygen Saturation - - Inhaled Oxygen - - Concentration Weight 69.5 kg (153 lb 3.5 08/13/2011 5:00 AM Value fro m [employer]. oz) MANAGER BUSINESS [employer]INU[employer] Height 163.8 cm (5' 4.49) 08/10/2011 7:30 AM MANAGER BUSINESS CONTINUITY Body Mass Index 25.9 08/10/2011 9:06 AM MANAGER BUSINESS CONTINUITY documented in this encounter Medications at Time [...] AM Results for this LATERAL 2 VIEWS MANAGER BUSINESS [employer]INU[employer] procedure ar e in the results section. ELECTROLYTE (CHEM 4) Routine 08/13/2011 4:49 AM R esults for this PANEL, S/P MANAGER BUSINESS [employer]INUITY procedure are i n the results section. PROTHROMBIN TIME (PT), Routine 08/13/2011 4:49 AM Results for this P MANAGER BUSINESS CONTINUITY procedure are i n the results section. CBC WITHOUT Routine 08/13/2011 4:49 AM Results f or this DIFFERENTIAL, B [employer]NAGER [employer]INU[employer] procedure ar e in the results section. MAGNESIUM, S Routine 08/13/2011 4:49 AM Results f or this MANAGER BUSINESS [employer]INUITY procedure are i n the results section. ELECTROLYTE (CHEM 4) Routine 08/12/2011 5:19 AM R esults for this PANEL, S/P [employer]NAGER [employer]INUITY procedure are i n the results section. PROTHROMBIN TIME (PT), Routine 08/12/2011 5:19 AM Results for this P [employer]NAGER BUSINESS CONTINUITY procedure are i n the results section. CBC WITHOUT Routine 08/12/2011 5:19 AM Results f or this DIFFERENTIAL, B [employer]NAGER [employer]INUITY procedure ar e in the results section. DX CHEST AP OR PA AND Routine 08/11/2011 5:46 PM Results for this LATERAL 2 VIEWS MANAGER BUSINESS [employer]INUITY procedure ar e in the results section. ABG W/COOX Routine 08/11/2011 5:54 AM Results f or this [employer]NAGER [employer]INUITY procedure are i n the results section. ELECTROLYTE (CHEM 4) Routine 08/11/2011 4:11 AM R esults for this PANEL, S/P [employer]NAGER [employer]INUITY procedure are i n the results section. ACTIVATED PARTIAL Routine 08/11/2011 4:11 AM Resu lts for this THROMBOPLASTIN TIME MANAGER BUSINESS [employer]INUITY procedur e are in (APTT), P the results section. PROTHROMBIN TIME (PT), Routine 08/11/2011 4:11 AM Results for this P [employer]NAGER BUSINESS [employer]INUITY procedure are i n the results section. CBC WITHOUT Routine 08/11/2011 4:11 AM Results f or this DIFFERENTIAL, B [employer]NAGER [employer]INUITY procedure ar e in the results section. MAGNESIUM, S Routine 08/11/2011 4:11 AM Results f or this MANAGER BUSINESS CONTINUITY procedure are i n the results section. ABG W/COOX Routine 08/10/2011 6:52 PM Results f or this [employer]NAGER BUSINESS [employer]INUITY procedure are i n the results section. POTASSIUM, B Routine 08/10/2011 6:52 PM Results f or this MANAGER BUSINESS CONTINUITY procedure are i n the results section. ELECTROLYTE (CHEM 4) Routine 08/10/2011 3:26 PM R esults for this PANEL, S/P [employer]NAGER BUSINESS [employer]INUITY procedure are i n the results section. ABG W/COOX Routine 08/10/2011 3:26 PM Results f or this MANAGER BUSINESS CONTINUITY procedure are i n the results section. GLUCOSE POCT, B Routine 08/10/2011 3:26 PM Result s for this MANAGER BUSINESS CONTINUITY procedure are i n the results section. THROMBOELASTOGRAPH, Routine 08/10/2011 3:26 PM Re sults for this KAOLIN, B MANAGER BUSINESS CONTINUITY procedure are i n the results section. ACTIVATED PARTIAL Routine 08/10/2011 3:26 PM Resu lts for this THROMBOPLASTIN TIME MANAGER BUSINESS [employer]INUITY procedur e are in (APTT), P the results section. PROTHROMBIN TIME (PT), Routine 08/10/2011 3:26 PM Results for this P MANAGER BUSINESS [employer]INUITY procedure are i n the results section. FIBRINOGEN, P Routine 08/10/2011 3:26 PM Results for this MANAGER BUSINESS CONTINUITY procedure are i n the results section. CBC WITHOUT Routine 08/10/2011 3:26 PM Results f or this DIFFERENTIAL, B [employer]NAGER BUSINESS [employer]INUITY procedure ar e in the results section. MAGNESIUM, S Routine 08/10/2011 3:26 PM Results f or this MANAGER BUSINESS CONTINUITY procedure are i n the results section. CALCIUM, IONIZED, S/B Routine 08/10/2011 3:26 PM Results for this MANAGER BUSINESS CONTINUITY procedure are i n the results section. ACT, POCT, B Routine 08/10/2011 3:25 PM Results f or this MANAGER [employer] CONTINUITY procedure are i n the results section. DX CHEST 1 VIEW Routine 08/10/2011 2:56 PM Result s for this MANAGER BUSINESS CONTINUITY procedure are i n the results section. HEMOGLOBIN (HGB), POCT, Routine 08/10/2011 2:12 PM Results for this B MANAGER BUSINESS CONTINUITY procedure are i n the results section. ACTIVATED CLOTTING Routine 08/10/2011 2:11 PM Res ults for this TIME, B [employer]NAGER BUSINESS CONTINUITY procedure are i n the results section. HXGENERAL PATHOLOGY Routine 08/10/2011 1:35 PM Re sults for this REPORT MANAGER BUSINESS CONTINUITY procedure are i n the results section. ABG W/COOX Routine 08/10/2011 1:32 PM Results f or this MANAGER BUSINESS CONTINUITY procedure are i n the results section. POTASSIUM, B Routine 08/10/2011 1:32 PM Results f or this MANAGER BUSINESS CONTINUITY procedure are i n the results section. GLUCOSE, WHOLE BLOOD Routine 08/10/2011 1:32 PM R esults for this MANAGER BUSINESS CONTINUITY procedure are i n the results section. THROMBOELASTOGRAPH, Routine 08/10/2011 1:32 PM Re sults for this KAOLIN, B MANAGER BUSINESS CONTINUITY procedure are i n the results section. SODIUM, S/P Routine 08/10/2011 1:32 PM Results f or this MANAGER BUSINESS CONTINUITY procedure are i n the results section. CALCIUM, IONIZED, S/B Routine 08/10/2011 1:32 PM Results for this MANAGER BUSINESS CONTINUITY procedure are i n the results section. HEMOGLOBIN (HGB), POCT, Routine 08/10/2011 1:22 PM Results for this B [employer]NAGER [employer] CONTINUITY procedure are i n the results section. ACTIVATED CLOTTING Routine 08/10/2011 1:21 PM Res ults for this TIME, B MANAGER BUSINESS CONTINUITY procedure are i n the results section. HEMOGLOBIN (HGB), POCT, Routine 08/10/2011 1:03 PM Results for this B [employer]NAGER [employer] CONTINUITY procedure are i n the results section. GLUCOSE POCT, B Routine 08/10/2011 1:03 PM Result s for this MANAGER BUSINESS CONTINUITY procedure are i n the results section. ACTIVATED CLOTTING Routine 08/10/2011 1:01 PM Res ults for this TIME, B MANAGER BUSINESS CONTINUITY procedure are i n the results section. ACTIVATED CLOTTING Routine 08/10/2011 12:24 Resul ts for this TIME, B PM MANAGER BUSINESS CONTINUITY procedure are i n the results section. ACTIVATED CLOTTING Routine 08/10/2011 12:07 Resul ts for this TIME, B PM MANAGER BUSINESS CONTINUITY procedure are i n the results section. ABG W/COOX Routine 08/10/2011 11:59 Results for this AM [employer]NAGER [employer]INUITY procedure are i n the results section. POTASSIUM, B Routine 08/10/2011 11:59 Results for this AM [employer]NAGER BUSINESS [employer]INUITY procedure are i n the results section. GLUCOSE, WHOLE BLOOD Routine 08/10/2011 11:59 Res ults for this AM MANAGER BUSINESS CONTINUITY procedure are i n the results section. SODIUM, S/P Routine 08/10/2011 11:59 Results for this AM MANAGER BUSINESS CONTINUITY procedure are i n the results section. CALCIUM, IONIZED, S/B Routine 08/10/2011 11:59 Re sults for this AM MANAGER BUSINESS CONTINUITY procedure are i n the results section. HEMOGLOBIN (HGB), POCT, Routine 08/10/2011 11:52 Results for this B AM MANAGER [employer] CONTINUITY procedure are i n the results section. ACTIVATED CLOTTING Routine 08/10/2011 11:50 Resul ts for this TIME, B AM MANAGER BUSINESS CONTINUITY procedure are i n the results section. ACTIVATED CLOTTING Routine 08/10/2011 11:35 Resul ts for this TIME, B AM MANAGER BUSINESS CONTINUITY procedure are i n the results section. HXINTRA-OP AUTO TX Routine 08/10/2011 11:34 Resul ts for this AM [employer]NAGER [employer]INUITY procedure are i n the results section. ACTIVATED CLOTTING Routine 08/10/2011 11:21 Resul ts for this TIME, B AM [employer]NAGER BUSINESS CONTINUITY procedure are i n the results section. ABG W/COOX Routine 08/10/2011 9:58 AM Results f or this MANAGER BUSINESS CONTINUITY procedure are i n the results section. POTASSIUM, B Routine 08/10/2011 9:58 AM Results f or this MANAGER BUSINESS CONTINUITY procedure are i n the results section. GLUCOSE, WHOLE BLOOD Routine 08/10/2011 9:58 AM R esults for this MANAGER BUSINESS CONTINUITY procedure are i n the results section. SODIUM, S/P Routine 08/10/2011 9:58 AM Results f or this MANAGER BUSINESS CONTINUITY procedure are i n the results section. CALCIUM, IONIZED, S/B Routine 08/10/2011 9:58 AM Results for this MANAGER BUSINESS CONTINUITY procedure are i n the results section. HEMOGLOBIN (HGB), POCT, Routine 08/10/2011 9:55 AM Results for this B MANAGER BUSINESS CONTINUITY procedure are i n the results section. ACTIVATED CLOTTING Routine 08/10/2011 9:55 AM Res ults for this TIME, B MANAGER BUSINESS CONTINUITY procedure are i n the results section. documented in this encounter Results DX Chest AP or PA and Lateral 2 Views (08/13/2011 8:41 AM MANAGER BUSINESS CONTINUITY) Anatomical Region Laterality Modality Chest N/A Radiographic Imaging Specimen (Source) Anatomical Collection Method Collection Time Re ceived Time Location / / Volume Laterality 08/13/2011 8:41 AM MANAGER BUSINESS CONTINUITY Narrative 08/13/2011 9:11 AM MANAGER BUSINESS CONTINUITY 13-Aug-2011 08:41:00 ??Exam: Chest-- 2 Views Indications: [...] annuloplasty. Electronically signed by: Bryan Mandujano MD [id number] 13-Aug-2011 09: 11 Иван Morris M.D. IMG DIAGNOSTIC IMAGING PROCE DURES (ABNORMAL) CBC without Differential (08/13/2011 4:49 AM MANAGER BUSINESS CONTINUITY) Patholo gist Method Time Signature Hemoglobin 10.1 (L) 13.5 - [facility] 17.5 G/DL LABORATORIES - [facility] Hematocrit 30.4 (L) 38.8 - [facility] 50.0 % LABORATORIES - [facility] RBC Distrib 12.5 11.8 - [facility] Width 15.6 % [facility] - [facility] Platelet Count 162 150 - 450 [facility] X10(9)/L LABORATORIES [facility] Leukocytes 7.9 3.5 - [facility] 10.5 LABORATORIES - X10(9)/L [facility] Erythrocytes 3.20 (L) 4.32 - [facility] 5.72 LABORATORIES - X10(12)/L [facility] MCV 95.0 81.2 - [facility] 95.1 FL LABORATORIES - [facility] Specimen Anatomical Collection Method Collection Time Receive d Time (Source) Location / / Volume Laterality 08/13/2011 4:49 AM 2 4:49 MANAGER BUSINESS CONTINUITY AM MANAGER BUSINESS CONTINUITY Иван Morris M.D. LAB BLOOD ADD-ON Performing Organization Address City/State/ZIP Code Phon e Number [facility] LABORATORIES - [address] [place], [place] [address] [facility] Electrolyte (Chem 4) Panel (08/13/2011 4:49 AM MANAGER BUSINESS CONTINUITY) Analysis Performed At Patho logist Time Signature Sodium, S 137 135 - 145 [facility] MMOL/L LABORATORIES - [facility] Potassium, S 4.0 3.6 - 5.2 [facility] MMOL/L LABORATORIES - [facility] Creatinine 0.9 0.8 - 1.3 [facility] MG/DL LABORATORIES - [facility] eGFR >60 >60 [facility] Non-Black/Afric ML/MIN/BSA LABORATORIES - an Filipino [facility] Anion Gap 7 7 - 15 [facility] - [facility] Glucose, S 94 70 - 140 [facility] MG/DL LABORATORIES - [facility] Chloride, S 101 100 - 108 [facility] MMOL/L LABORATORIES - [facility] HX Bicarbonate, 29 22 - 29 [facility] P/S MMOL/L LABORATORIES - [facility] eGFR-Black/Afri >60 >60 [facility] can Filipino ML/MIN/BSA LABORATORIES - [facility] BUN (Blood Urea 14 8 - 24 [facility] Nitrogen), S MG/DL LABORATORIES - [facility] Specimen Anatomical Collection Method Collection Time Receive d Time (Source) Location / / Volume Laterality 08/13/2011 4:49 AM 2 4:49 MANAGER BUSINESS CONTINUITY AM MANAGER BUSINESS CONTINUITY Иван Morris M.D. LAB BLOOD ADD-ON Performing Organization Address City/State/ZIP Code Phon e Number [facility] LABORATORIES - [address] [place] [phone] [facility] (ABNORMAL) PT (Prothrombin Time) with INR (08/13/2011 4:49 AM MANAGER BUSINESS CONTINUITY) Patholo gist Method Time Signature Prothrombin 17.0 (H) 9.5 - [facility] Time, P 13.8 SEC LABORATORIES - [facility] INR 1.5 0.8 - 1.2 [facility] LABORATORIES - [facility] Specimen Anatomical Collection Method Collection Time Receive d Time (Source) Location / / Volume Laterality 08/13/2011 4:49 AM 2 4:49 MANAGER BUSINESS CONTINUITY AM MANAGER BUSINESS CONTINUITY Иван Morris M.D. LAB BLOOD ADD-ON Performing Organization Address City/State/ZIP Code Phon e Number [facility] LABORATORIES - [address] [place], [place] [address] [facility] Magnesium (08/13/2011 4:49 AM MANAGER BUSINESS CONTINUITY) P athologist Signature Magnesium, S 2.1 1.7 - 2.3 [facility] MG/DL LABORATORIES - [facility] Specimen Anatomical Collection Method Collection Time Receive d Time (Source) Location / / Volume Laterality 08/13/2011 4:49 AM 2 4:49 MANAGER BUSINESS CONTINUITY AM MANAGER BUSINESS CONTINUITY Иван Morris M.D. LAB BLOOD ADD-ON Performing Organization Address City/State/ZIP Code Phon e Number [facility] LABORATORIES - [address] [place], [place] [address] [facility] (ABNORMAL) PT (Prothrombin Time) with INR (08/12/2011 5:19 AM MANAGER BUSINESS CONTINUITY) [facility] Method Time Signature Prothrombin 14.0 (H) 9.5 - [facility] Time, P 13.8 SEC LABORATORIES - [facility] INR 1.2 0.8 - 1.2 [facility] LABORATORIES - [facility] Specimen Anatomical Collection Method Collection Time Receive d Time (Source) Location / / Volume Laterality 08/12/2011 5:19 AM 2 5:19 MANAGER BUSINESS CONTINUITY AM MANAGER BUSINESS CONTINUITY Иван Morris M.D. LAB BLOOD ADD-ON Performing Organization Address City/[facility] Code Phon e Number [facility] LABORATORIES - [address] [place] [id number] [facility] Electrolyte (Chem 4) Panel (08/12/2011 5:19 AM MANAGER BUSINESS CONTINUITY) Analysis Performed At [facility] Time Signature Sodium, S 136 135 - 145 [facility] MMOL/L LABORATORIES [facility] Potassium, S 4.1 3.6 - 5.2 [facility] MMOL/L LABORATORIES - [facility] Creatinine 0.9 0.8 - 1.3 [facility] MG/DL LABORATORIES - [facility] eGFR >60 >60 [facility] Non-Black/Afric ML/MIN/BSA LABORATORIES - an Filipino [facility] eGFR-Black/Afri >60 >60 [facility] can Filipino ML/MIN/BSA LABORATORIES - [facility] BUN (Blood Urea 15 8 - 24 [facility] Nitrogen), S MG/DL LABORATORIES - [facility] Anion Gap 8 7 - 15 [facility] Glucose, S 98 70 - 140 [facility] MG/DL LABORATORIES - [facility] Chloride, S 101 100 - 108 [facility] MMOL/L LABORATORIES - [facility] HX Bicarbonate, 27 22 - 29 [facility] P/S MMOL/L LABORATORIES - [facility] Specimen Anatomical Collection Method Collection Time Receive d Time (Source) Location / / Volume Laterality 08/12/2011 5:19 AM 2 5:19 MANAGER BUSINESS CONTINUITY AM MANAGER BUSINESS CONTINUITY Иван Morris M.D. LAB BLOOD ADD-ON Performing Organization Address City/[facility] Phon e Number [facility] LABORATORIES - [address] [place], [place] [address] [facility] (ABNORMAL) CBC without Differential (08/12/2011 5:19 AM MANAGER BUSINESS CONTINUITY) [facility] Method Time Signature Hemoglobin 10.2 (L) 13.5 - [facility] 17.5 G/DL LABORATORIES - [facility] Hematocrit 31.0 (L) 38.8 - [facility] 50.0 % LABORATORIES - [facility] RBC Distrib 12.6 11.8 - [facility] Width 15.6 % LABORATORIES - [facility] Platelet Count 150 150 - 450 [facility] X10(9)/L LABORATORIES - [facility] Erythrocytes 3.26 (L) 4.32 - [facility] 5.72 LABORATORIES - X10(12)/L [facility] MCV 95.1 81.2 - [facility] 95.1 FL LABORATORIES - [facility] Leukocytes 11.1 (H) 3.5 - [facility] 10.5 LABORATORIES - X10(9)/L [facility] Specimen Anatomical Collection Method Collection Time Receive d Time (Source) Location / / Volume Laterality 08/12/2011 5:19 AM 2 5:19 MANAGER BUSINESS CONTINUITY AM MANAGER BUSINESS CONTINUITY Иван Morris M.D. LAB BLOOD ADD-ON Performing Organization Address City/State/ZIP Code Phon e Number [facility] LABORATORIES - [address] [place] [phone] [facility] DX Chest AP or PA and Lateral 2 Views (08/11/2011 5:46 PM MANAGER BUSINESS CONTINUITY) Anatomical Region Laterality Modality Chest N/A Radiographic Imaging Specimen (Source) Anatomical Collection Method Collection Time Re ceived Time Location / / Volume Laterality 08/11/2011 5:46 PM MANAGER BUSINESS CONTINUITY Narrative 08/11/2011 7:23 PM MANAGER BUSINESS CONTINUITY 11-Aug-2011 17:46:00 ??Exam: Chest-- 2 Views Indications: [...] Electronically signed by: ?? Sidney Yo MD [phone] [id number] 11-Aug-2011 19:00 I have reviewed the films/images and agr ee with the above interpretation. Electronically signed by: ?? Stella Espino MD [phone] 11-Aug-2011 19:23 Procedure Note Rivera Espino M.D. [...] effusion. Electronically signed by: Sidney Yo MD [id number] 11-Aug-2011 19:00 I have reviewed the films/images and agr ee with the above interpretation. Electronically signed by: Stella Espino MD [id number] 11-Aug-2011 19:23 Иван Morris M.D. IMG DIAGNOSTIC IMAGING PROCE DURES (ABNORMAL) Blood Gas with Coox, Arterial (08/11/2011 5:54 AM MANAGER BUSINESS CONTINUITY) Patholo gist Method Time Signature Device [facility] pO2 103 (H) 80 - 100 [facility] MM HG [facility] pCO2 44 35 - 45 [facility] MM HG [facility] pH 7.35 7.35 - [facility] 7.45 PH [facility] Hb 10.2 (L) 13.5 - [facility] 17.5 G/DL [facility] O2Hb 96.0 94.0 - [facility] 98.0 % [facility] CtO2 13.9 (L) 21.0 - [facility] 23.0 [facility] Arterial Art Line [facility] Sample Site [facility] O2 Flow 2.0 L/MIN [facility] Base Excess -1 -2 - 2 [facility] MMOL/L [facility] HCO3 24 22 - 26 [facility] MMOL/L [facility] COHb 1.3 <3.0 % [facility] MetHb 1.0 <1.6 % [facility] Specimen Anatomical Collection Method Collection Time Receive d Time (Source) Location / / Volume Laterality 08/11/2011 5:54 AM 2 5:54 MANAGER BUSINESS CONTINUITY AM MANAGER BUSINESS CONTINUITY Zahra Ayon P.A.-C. LAB BLOOD NON ADD-ON Performing Organization Address City/[facility]/ZIP Code Phon e Number [facility] LABORATORIES - [address] [phone] [facility] (ABNORMAL) APTT (Activated Partial Thromboplastin Time) (08/11/2011 4:11 AM MANAGER BUSINESS CONTINUITY) P athologist Signature APTT, P 26 (L) 28 - 38 SEC [facility] Specimen Anatomical Collection Method Collection Time Receive d Time (Source) Location / / Volume Laterality 08/11/2011 4:11 AM 2 4:11 MANAGER BUSINESS CONTINUITY AM MANAGER BUSINESS CONTINUITY Bassam Lisa M.D. LAB BLOOD ADD-ON Performing Organization Address [facility] Phon e Number [facility] LABORATORIES - [address] [place] [phone] [facility] (ABNORMAL) CBC without Differential (08/11/2011 4:11 AM MANAGER BUSINESS CONTINUITY) Patholo gist Method Time Signature Hemoglobin 10.4 (L) 13.5 - [facility] 17.5 G/DL [facility] Hematocrit 32.0 (L) 38.8 - [facility] 50.0 % [facility] Erythrocytes 3.36 (L) 4.32 - [facility] 5.72 LABORATORIES - X10(12)/L [facility] MCV 95.2 (H) 81.2 - [facility] 95.1 FL [facility] RBC Distrib 12.5 11.8 - [facility] Width 15.6 % [facility] Platelet Count 177 150 - 450 [facility] X10(9)/L [facility] Leukocytes 14.4 (H) 3.5 - [facility] 10.5 LABORATORIES - X10(9)/L [facility] Specimen Anatomical Collection Method Collection Time Receive d Time (Source) Location / / Volume Laterality 08/11/2011 4:11 AM 2 4:11 MANAGER BUSINESS CONTINUITY AM MANAGER BUSINESS CONTINUITY Bassam Lisa M.D. LAB BLOOD ADD-ON Performing Organization Address City/[facility]/ZIP Code Phon e Number [facility] LABORATORIES - [address] [place], [place] [address] [facility] (ABNORMAL) Magnesium (08/11/2011 4:11 AM MANAGER BUSINESS CONTINUITY) [facility] Time Signature Magnesium, S 2.7 (H) 1.7 - 2.3 [facility] MG/DL LABORATORIES [facility] Specimen Anatomical Collection Method Collection Time Receive d Time (Source) Location / / Volume Laterality 08/11/2011 4:11 AM 2 4:11 MANAGER BUSINESS CONTINUITY AM MANAGER BUSINESS CONTINUITY Bassam Lisa M.D. LAB BLOOD ADD-ON Performing Organization Address City/State/ZIP Code Phon e Number [facility] LABORATORIES - [address] [place], [place] [address] [facility] PT (Prothrombin Time) with INR (08/11/2011 4:11 AM MANAGER BUSINESS CONTINUITY) [facility] Method Time Signature Prothrombin 12.0 9.5 - 13.8 [facility] Time, P SEC LABORATORIES [facility] INR 1.0 0.8 - 1.2 [facility] - [facility] Specimen Anatomical Collection Method Collection Time Receive d Time (Source) Location / / Volume Laterality 08/11/2011 4:11 AM 2 4:11 MANAGER BUSINESS CONTINUITY AM MANAGER BUSINESS CONTINUITY Bassam Lisa M.D. LAB BLOOD ADD-ON Performing Organization Address City/State/ZIP Code Phon e Number [facility]ATORIES - [address] [place], [place] [address] [facility] [facility]PITAL (ABNORMAL) Electrolyte (Chem 4) Panel (08/11/2011 4:11 AM MANAGER BUSINESS CONTINUITY) [facility] Method Time Signature Sodium, S 134 (L) 135 - 145 [facility] MMOL/L LABORATORIES [facility] Potassium, S 4.6 3.6 - 5.2 [facility] MMOL/L [facility] eGFR-Black/Afri >60 >60 [facility] can Filipino ML/MIN/BS LABORATORIES - [facility] BUN (Blood Urea 20 8 - 24 [facility] Nitrogen), S MG/DL [facility] Chloride, S 100 100 - 108 [facility] MMOL/L [facility] - [facility] HX Bicarbonate, 23 22 - 29 [facility] P/S MMOL/L LABORATORIES [facility] Creatinine 0.9 0.8 - 1.3 [facility] MG/DL [facility] eGFR >60 >60 [facility] Non-Black/Afric ML/MIN/BS LABORATORIES - an Filipino A [facility] Anion Gap 11 7 - 15 [facility] Glucose, S 132 70 - 140 [facility] MG/DL [facility] Specimen Anatomical Collection Method Collection Time Receive d Time (Source) Location / / Volume Laterality 08/11/2011 4:11 AM 2 4:11 MANAGER BUSINESS CONTINUITY AM MANAGER BUSINESS CONTINUITY Bassam Lisa M.D. LAB BLOOD ADD-ON Performing Organization Address City/[facility] Code Phon e Number [facility] LABORATORIES - [address] [place], [place] [address] [facility] (ABNORMAL) Blood Gas with Coox, Arterial (08/10/2011 6:52 PM MANAGER BUSINESS CONTINUITY) [facility] Method Time Signature pO2 79 (L) 80 - 100 [facility] MM HG [facility] pCO2 43 35 - 45 [facility] MM HG [facility] O2Hb 92.8 (L) 94.0 - [facility] 98.0 % [facility] COHb 1.2 <3.0 % [facility] Arterial Art Line [facility] Sample Site [facility] O2 Flow 1.0 L/MIN [facility] Device NC [facility] Spont. 16 [facility] breaths/min [facility] pH 7.34 (L) 7.35 - [facility] 7.45 PH [facility] Base Excess -3 (L) -2 - 2 [facility] MMOL/L [facility] HCO3 22 22 - 26 [facility] MMOL/L [facility] Hb 11.8 (L) 13.5 - [facility] 17.5 G/DL [facility] MetHb 1.1 <1.6 % [facility] CtO2 15.4 (L) 21.0 - [facility] 23.0 VOL LABORATORIES - [facility] Specimen Anatomical Collection Method Collection Time Receive d Time (Source) Location / / Volume Laterality 08/10/2011 6:52 PM 2 6:52 MANAGER BUSINESS CONTINUITY PM MANAGER BUSINESS CONTINUITY Иван Morris M.D. LAB BLOOD NON ADD-ON Performing Organization Address City/State/ZIP Code Phon e Number [facility] LABORATORIES - [address] [place], [place] [address] [facility] Potassium, Blood (08/10/2011 6:52 PM MANAGER BUSINESS CONTINUITY) athologist Signature Potassium, B 3.8 3.6 - 5.2 [facility] MMOL/L LABORATORIES - [facility] Specimen Anatomical Collection Method Collection Time Receive d Time (Source) Location / / Volume Laterality 08/10/2011 6:52 PM 2 6:52 MANAGER BUSINESS CONTINUITY PM MANAGER BUSINESS CONTINUITY Иван Morris M.D. LAB BLOOD NON ADD-ON Performing Organization Address City/State/ZIP Code Phon e Number [facility] LABORATORIES - [address] [place], [place] [address] [facility] Glucose, POCT (08/10/2011 3:26 PM MANAGER BUSINESS CONTINUITY) [facility] Method Time Signature Glucose, POCT, 126 70 - 140 [facility] B MG/DL LABORATORIES - [facility] Sample Site, Artline [facility] Blood Gas, LABORATORIES - POCT [facility] Specimen Anatomical Collection Method Collection Time Receive d Time (Source) Location / / Volume Laterality 08/10/2011 3:26 PM 2 3:26 MANAGER BUSINESS CONTINUITY PM MANAGER BUSINESS CONTINUITY Historical Provider LAB POCT ORDERABLES-MANUAL Performing Organization Address City/State/ZIP Code Phon e Number [facility] LABORATORIES - [address] [place] [phone] [facility] (ABNORMAL) Electrolyte (Chem 4) Panel (08/10/2011 3:26 PM MANAGER BUSINESS CONTINUITY) [facility] Method Time Signature Sodium, P 140 135 - 145 [facility] MMOL/L LABORATORIES - [facility] Potassium, P 3.4 (L) 3.6 - 5.2 [facility] MMOL/L LABORATORIES - [facility] Chloride, S 106 100 - 108 [facility] MMOL/L LABORATORIES - [facility] Creatinine 1.2 0.8 - 1.3 [facility] MG/DL LABORATORIES - [facility] eGFR >60 >60 [facility] Non-Black/Afric ML/MIN/BS LABORATORIES - an Filipino A [facility] eGFR-Black/Afri >60 >60 [facility] can Filipino ML/MIN/BS LABORATORIES - A [facility] Glucose, S 124 70 - 140 [facility] MG/DL LABORATORIES - [facility] BUN (Blood Urea 18 8 - 24 [facility] Nitrogen), S MG/DL [facility] HX Bicarbonate, 23 22 - 29 [facility] P/S MMOL/L [facility] Specimen Anatomical Collection Method Collection Time Receive d Time (Source) Location / / Volume Laterality 08/10/2011 3:26 PM 2 3:26 MANAGER BUSINESS CONTINUITY PM MANAGER BUSINESS CONTINUITY Иван Morris M.D. LAB BLOOD ADD-ON Performing Organization Address City/[facility]/ZIP Code Phon e Number [facility] LABORATORIES - [address] [place] [phone] [facility] (ABNORMAL) Blood Gas with Coox, Arterial (08/10/2011 3:26 PM MANAGER BUSINESS CONTINUITY) [employer] Method Time Signature Device NC [facility] pO2 115 (H) 80 - 100 [facility] MM HG [facility] Base Excess -3 (L) -2 - 2 [facility] MMOL/L [facility] HCO3 22 22 - 26 [facility] MMOL/L [facility] COHb 1.1 <3.0 % [facility] MetHb 1.1 <1.6 % [facility] Arterial Art Line [facility] Sample Site [facility] O2 Flow 2.0 L/MIN [facility] pCO2 43 35 - 45 [facility] MM HG [facility] pH 7.33 (L) 7.35 - [facility] 7.45 PH [facility] Hb 12.0 (L) 13.5 - [facility] 17.5 G/DL [facility] O2Hb 96.0 94.0 - [facility] 98.0 % [facility] CtO2 16.4 (L) 21.0 - [facility] 23.0 VOL LABORATORIES - [facility] Specimen Anatomical Collection Method Collection Time Receive d Time (Source) Location / / Volume Laterality 08/10/2011 3:26 PM 2 3:26 MANAGER BUSINESS CONTINUITY PM MANAGER BUSINESS CONTINUITY Иван Morris M.D. LAB BLOOD NON ADD-ON Performing Organization Address City/State/ZIP Code Phon e Number [facility] LABORATORIES - [address] [place] [address] [facility] PT (Prothrombin Time) with INR (08/10/2011 3:26 PM MANAGER BUSINESS CONTINUITY) Patholo gist Method Time Signature Prothrombin 11.9 9.5 - 13.8 [facility] Time, P SEC [facility] INR 1.1 0.8 - 1.2 [facility] Specimen Anatomical Collection Method Collection Time Receive d Time (Source) Location / / Volume Laterality 08/10/2011 3:26 PM 2 3:26 MANAGER BUSINESS CONTINUITY PM MANAGER BUSINESS CONTINUITY Иван Morris M.D. LAB BLOOD ADD-ON Performing Organization Address City/[facility]/ZIP Code Phon e Number [facility] LABORATORIES - [address] [place] [phone] [facility] APTT (Activated Partial Thromboplastin Time) (08/10/2011 3:26 PM MANAGER BUSINESS CONTINUITY) P athologist Signature APTT, P 33 28 - 38 SEC [facility] Specimen Anatomical Collection Method Collection Time Receive d Time (Source) Location / / Volume Laterality 08/10/2011 3:26 PM 2 3:26 MANAGER BUSINESS CONTINUITY PM MANAGER BUSINESS CONTINUITY Иван Morris M.D. LAB BLOOD ADD-ON Performing Organization Address City/[facility]/ZIP Code Phon e Number [facility] LABORATORIES - [address] [place] [phone] [facility] (ABNORMAL) Magnesium (08/10/2011 3:26 PM MANAGER BUSINESS CONTINUITY) Analysis Performed At Patho logist Time Signature Magnesium, S 2.7 (H) 1.7 - 2.3 [facility] MG/DL [facility] Specimen Anatomical Collection Method Collection Time Receive d Time (Source) Location / / Volume Laterality 08/10/2011 3:26 PM 2 3:26 MANAGER BUSINESS CONTINUITY PM MANAGER BUSINESS CONTINUITY Иван Morris M.D. LAB BLOOD ADD-ON Performing Organization Address City/State/ZIP Code Phon e Number [facility] LABORATORIES - [address] [place] [phone] [facility] Fibrinogen (08/10/2011 3:26 PM MANAGER BUSINESS CONTINUITY) P athologist Signature HX Fibrinogen, 257 200 - 375 [facility] Ltd Range (P) MG/DL [facility] Specimen Anatomical Collection Method Collection Time Receive d Time (Source) Location / / Volume Laterality 08/10/2011 3:26 PM 2 3:26 MANAGER BUSINESS CONTINUITY PM MANAGER BUSINESS CONTINUITY Иван Morris M.D. LAB BLOOD ADD-ON Performing Organization Address City/[facility]/ZIP Code Phon e Number [facility] LABORATORIES - [address] [place] [phone] [facility] (ABNORMAL) CBC without Differential (08/10/2011 3:26 PM MANAGER BUSINESS CONTINUITY) [facility] gist Method Time Signature Erythrocytes 3.75 (L) 4.32 - [facility] 5.72 LABORATORIES - X10(12)/L [facility] MCV 96.0 (H) 81.2 - [facility] 95.1 FL LABORATORIES - [facility] Leukocytes 19.8 (H) 3.5 - [facility] 10.5 LABORATORIES - X10(9)/L [facility] Hemoglobin 11.9 (L) 13.5 - [facility] 17.5 G/DL LABORATORIES - [facility] Hematocrit 36.0 (L) 38.8 - [facility] 50.0 % LABORATORIES - [facility] RBC Distrib 12.5 11.8 - [facility] Width 15.6 % [facility] - [facility] Platelet Count 210 150 - 450 [facility] X10(9)/L LABORATORIES - [facility] Specimen Anatomical Collection Method Collection Time Receive d Time (Source) Location / / Volume Laterality 08/10/2011 3:26 PM 2 3:26 MANAGER BUSINESS CONTINUITY PM MANAGER BUSINESS CONTINUITY Иван Morris M.D. LAB BLOOD ADD-ON Performing Organization Address City/State/ZIP Code Phon e Number [facility] LABORATORIES - [address] [place] [phone] [facility] Calcium, Ionized (08/10/2011 3:26 PM MANAGER BUSINESS CONTINUITY) athologist Signature Calcium, 4.70 4.65 - [facility] Ionized, B 5.30 MG/DL LABORATORIES - [facility] Specimen Anatomical Collection Method Collection Time Receive d Time (Source) Location / / Volume Laterality 08/10/2011 3:26 PM 2 3:26 MANAGER BUSINESS CONTINUITY PM MANAGER BUSINESS CONTINUITY Иван Morris M.D. LAB BLOOD NON ADD-ON Performing Organization Address City/State/ZIP Code Phon e Number [facility] LABORATORIES - [address] [place] [phone] [facility] (ABNORMAL) Thromboelastograph, Kaolin, Blood (08/10/2011 3:26 PM MANAGER BUSINESS CONTINUITY) Patholo gist Method Time Signature R Time 8.4 (H) 2.9 - 6.4 [facility] MIN LABORATORIES [facility] K Time 2.8 (H) 1.0 - 1.8 [facility] MIN LABORATORIES [facility] Maximum 51.9 (L) 57.1 - 72.6 [facility] Amplitude MM LABORATORIES [facility] Ly30 2.9 0.0 - 4.8 % [facility] R + K 11.2 (H) 4.1 - 8.0 [facility] MIN LABORATORIES - [facility] Angle 53.9 (L) 64.0 - 78.1 [facility] DEGREES LABORATORIES [facility] Specimen Anatomical Collection Method Collection Time Receive d Time (Source) Location / / Volume Laterality 08/10/2011 3:26 PM 2 3:26 MANAGER BUSINESS CONTINUITY PM MANAGER BUSINESS CONTINUITY Иван Morris M.D. LAB BLOOD NON ADD-ON Performing Organization Address City/[facility]/ZIP Code Phon e Number [facility] LABORATORIES - [address] ACT (Activated Clotting Time), POCT (08/10/2011 3:25 PM MANAGER BUSINESS CONTINUITY) P athologist Signature Activated 123 84 - 139 [facility] Clotting Time, SEC LABORATORIES - POCT [facility] Specimen Anatomical Collection Method Collection Time Receive d Time (Source) Location / / Volume Laterality 08/10/2011 3:25 PM 2 3:25 MANAGER BUSINESS CONTINUITY PM MANAGER BUSINESS CONTINUITY Historical Provider LAB POCT ORDERABLES - DEVICE Performing Organization Address City/[facility] Phon e Number [facility] LABORATORIES - [address] DX Chest 1 View (08/10/2011 2:56 PM MANAGER BUSINESS CONTINUITY) Anatomical Region Laterality Modality Chest N/A Radiographic Imaging Specimen (Source) Anatomical Collection Method Collection Time Re ceived Time Location / / Volume Laterality 08/10/2011 2:56 PM MANAGER BUSINESS CONTINUITY Narrative 08/10/2011 3:13 PM MANAGER BUSINESS CONTINUITY 10-Aug-2011 14:56:00 ??Exam: Chest-Single View Indications: or [...] (ABNORMAL) Hemoglobin (HGB), POCT (08/10/2011 2:12 PM MANAGER BUSINESS CONTINUITY) [facility] Signature Hemoglobin, B 12.4 (L) 13.5 - [facility] 17.5 G/DL LABORATORIES - [facility] Specimen Anatomical Collection Method Collection Time Receive d Time (Source) Location / / Volume Laterality 08/10/2011 2:12 PM 2 2:12 MANAGER BUSINESS CONTINUITY PM MANAGER BUSINESS CONTINUITY Jung Vega Jr., M.D. LAB POCT ORDERABLES - DEVIC E Performing Organization Address City/[facility]/ZIP Code Phon e Number [facility] LABORATORIES - [address] [place] [phone] [facility] Activated Clotting Time (08/10/2011 2:11 PM MANAGER BUSINESS CONTINUITY) P athologist Signature Activated 149 SEC [facility] Clotting Time, LABORATORIES - POCT [facility] Specimen Anatomical Collection Method Collection Time Receive d Time (Source) Location / / Volume Laterality 08/10/2011 2:11 PM 2 2:11 MANAGER BUSINESS CONTINUITY PM MANAGER BUSINESS CONTINUITY Jung Vega Jr., M.D. LAB BLOOD ADD-ON Performing Organization Address City/[facility]/ZIP Code Phon e Number [facility] LABORATORIES - [address] [place] [phone] [facility] Hx general Pathology Report (08/10/2011 1:35 PM MANAGER BUSINESS CONTINUITY) Specimen Anatomical Collection Method Collection Time Receive d Time (Source) Location / / Volume Laterality 08/10/2011 1:35 PM 2 1:35 MANAGER BUSINESS CONTINUITY PM MANAGER BUSINESS CONTINUITY Narrative [facility] - [facility] - 08/10/2011 1:35 PM MANAGER BUSINESS CONTINUITY ??08/10/2011 General Biopsy ? ([id number]) ? Requested By: Иван Morris M.D. ? ?[phone] ? SLIDE DISPOSITION: ? DIAGNOSIS: ?A. ? 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 ? 08/11/2011 18:34 Interpreted by: Fan Raygoza M.D. [id number] Report electronically signed by Fan Raygoza M.D. Transcribed by: flynn 08/11/2011 14:10:04 ? TISSUE DESCRIPTION: [id number] A1 ?A. ? Received in formalin l abeled mitral valve leaflet is a portion of mitral leaflet, measuring 1. 1 x 0.9 x 0.3 cm, showing diffuse rubbery thickening, without renard cification, vegetation, or perforation. ??Entirely submitted for m icroscopy in cassette A1. ? Part A: ??Mitral vavle leaflet ?1 MV leaflet ?? CV Path ? Procedure Note 09/02/2017 08/10/2011 General Biopsy ([id number]) Requested By: Иван Morris M.D. [id number] [id number] SLIDE DISPOSITION: DIAGNOSIS: A. 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 08/11/2011 18:34 Interpreted by: Fan Raygoza M.D. [id number] Report electronically signed by Fan Raygoza M.D. Transcribed by: flynn 08/11/2011 14:10:04 TISSUE DESCRIPTION: [id number] A1 A. Received in formalin labeled mitral valve leaflet is a portion of mitral leaflet, measuring 1. 1 x 0.9 x 0.3 cm, showing diffuse rubbery thickening, without renard cification, vegetation, or perforation. Entirely submitted for jeremiah roscopy in cassette A1. Part A: Mitral vavle leaflet 1 MV leaflet CV Path Иван Morris M.D. LAB PATHOLOGY/CYTOLOGY ORDER RIGO Performing Organization Address City/[facility] Code Phon e Number [facility] - [address] (ABNORMAL) Thromboelastograph, Kaolin, Blood (08/10/2011 1:32 PM MANAGER BUSINESS CONTINUITY) P athologist Signature R + K 10.1 (H) 4.1 - 8.0 [facility] MIN [facility] Comment: [place] Angle 57.7 (L) 64.0 - 78.1 [facility] Comment: [place] Maximum Amplitude 50.4 (L) 57.1 - 72.6 MM [facility] Comment: [place] Ly30 7.2 (H) 0.0 - 4.8 % [facility] Comment: [place] R Time 7.5 (H) 2.9 - 6.4 MIN [facility] [place] Comment: [place] K Time 2.6 (H) 1.0 - 1.8 MIN [facility] [place] Comment: [place] Specimen Anatomical Collection Method Collection Time Receive d Time (Source) Location / / Volume Laterality 08/10/2011 1:32 PM 2 1:32 MANAGER BUSINESS CONTINUITY PM MANAGER BUSINESS CONTINUITY Narrative [facility] - 08/10/2011 2:30 PM MANAGER BUSINESS CONTINUITY [place]wn [place] Historical Provider LAB BLOOD NON ADD-ON Performing Organization Address [facility]/ZIP Code Phon e Number [facility] - [address] [place] [phone] [facility] (ABNORMAL) Blood Gas with Coox, Arterial (08/10/2011 1:32 PM MANAGER BUSINESS CONTINUITY) athologist Signature pH 7.31 (L) 7.35 - [facility] 7.45 PH [facility] Comment: [place]wn [place] Base Excess -4 (L) -2 - 2 MMOL/L [facility] Comment: [place] O2Hb 92.1 (L) 94.0 - 98.0 % [facility] [place] Comment: [place] COHb 1.6 <3.0 % [facility] Comment: [place] pO2 83 80 - 100 MM HG [facility] Comment: [place] pCO2 45 35 - 45 MM HG [facility] [place] Comment: [place] HCO3 22 22 - 26 MMOL/L [facility] Comment: [place] Hb 11.3 (L) 13.5 - 17.5 G/DL [facility] [place] Comment: [place] MetHb 1.4 <1.6 % [facility] Comment: [place] CtO2 14.7 (L) 21.0 - 23.0 VOL % [facility] Comment: [place] Specimen Anatomical Collection Method Collection Time Receive d Time (Source) Location / / Volume Laterality 08/10/2011 1:32 PM 2 1:32 MANAGER BUSINESS CONTINUITY PM MANAGER BUSINESS CONTINUITY Narrative [facility] - 08/10/2011 1:37 PM MANAGER BUSINESS CONTINUITY [place]wn [place] Historical Provider LAB BLOOD NON ADD-ON Performing Organization Address City/State/ZIP Code Phon e Number [facility] - [address] [place], [place] [address] [facility] Calcium, Ionized (08/10/2011 1:32 PM MANAGER BUSINESS CONTINUITY) athologist Signature Calcium, 4.66 4.65 - [facility] Ionized, B 5.30 MG/DL [facility] Comment: [place] Specimen Anatomical Collection Method Collection Time Receive d Time (Source) Location / / Volume Laterality 08/10/2011 1:32 PM 2 1:32 MANAGER BUSINESS CONTINUITY PM MANAGER BUSINESS CONTINUITY Narrative [facility] - 08/10/2011 1:37 PM MANAGER BUSINESS CONTINUITY [place]wn [place] Historical Provider LAB BLOOD NON ADD-ON Performing Organization Address City/[facility] Phon e Number [facility] - [address] [place] [phone] [facility] (ABNORMAL) Glucose, Whole Blood (08/10/2011 1:32 PM MANAGER BUSINESS CONTINUITY) athologist Signature Glucose, S 168 (H) 70 - 140 [facility] MG/DL [facility] Comment: [place] Specimen Anatomical Collection Method Collection Time Receive d Time (Source) Location / / Volume Laterality 08/10/2011 1:32 PM 2 1:32 MANAGER BUSINESS CONTINUITY PM MANAGER BUSINESS CONTINUITY Narrative [facility] - 08/10/2011 1:37 PM MANAGER BUSINESS CONTINUITY [place]wn [place] Historical Provider LAB BLOOD TROPONIN Performing Organization Address City/[facility]/ZIP [facility] Phon e Number [facility] - [address] [place] [phone] [facility] Potassium, Blood (08/10/2011 1:32 PM MANAGER BUSINESS CONTINUITY) athologist Signature Potassium, B 4.0 3.6 - 5.2 [facility] MMOL/L [facility] Comment: [place] Specimen Anatomical Collection Method Collection Time Receive d Time (Source) Location / / Volume Laterality 08/10/2011 1:32 PM 2 1:32 MANAGER BUSINESS CONTINUITY PM MANAGER BUSINESS CONTINUITY Narrative [facility] - 08/10/2011 1:37 PM MANAGER BUSINESS CONTINUITY [place]wn [place] Historical Provider LAB BLOOD NON ADD-ON Performing Organization Address City/[facility]/ZIP Code Phon e Number [facility] LABORATORIES - [address] [place] [phone] [facility] Sodium (08/10/2011 1:32 PM MANAGER BUSINESS CONTINUITY) athologist Signature Sodium, B 136 135 - 145 [facility] MMOL/L [facility] Comment: [place] Specimen Anatomical Collection Method Collection Time Receive d Time (Source) Location / / Volume Laterality 08/10/2011 1:32 PM 2 1:32 MANAGER BUSINESS CONTINUITY PM MANAGER BUSINESS CONTINUITY Narrative [facility] - 08/10/2011 1:37 PM MANAGER BUSINESS CONTINUITY [place] Historical Provider LAB BLOOD ADD-ON Performing Organization Address City/[facility]/ZIP [facility] Phon e Number [facility] LABORATORIES - [address] [address] [facility] (ABNORMAL) Hemoglobin (HGB), POCT (08/10/2011 1:22 PM MANAGER BUSINESS CONTINUITY) [facility] Method Time Signature Hemoglobin, B 11.0 (L) 13.5 - [facility] 17.5 G/DL LABORATORIES - [facility] Specimen Anatomical Collection Method Collection Time Receive d Time (Source) Location / / Volume Laterality 08/10/2011 1:22 PM 2 1:22 MANAGER BUSINESS CONTINUITY PM MANAGER BUSINESS CONTINUITY Jung Vega Jr., M.D. LAB POCT ORDERABLES - DEVIC E Performing Organization Address [facility] Phon e Number [facility] LABORATORIES - [address] [address] 05 [facility] Activated Clotting Time (08/10/2011 1:21 PM MANAGER BUSINESS CONTINUITY) P athologist Signature Activated 158 SEC [facility] Clotting Time, LABORATORIES - POCT [facility] Specimen Anatomical Collection Method Collection Time Receive d Time (Source) Location / / Volume Laterality 08/10/2011 1:21 PM 2 1:21 MANAGER BUSINESS CONTINUITY PM MANAGER BUSINESS CONTINUITY Jung Vega Jr., M.D. LAB BLOOD ADD-ON Performing Organization Address City/[facility]/ZIP Code Phon e Number [facility] LABORATORIES - [address] [address] [facility] (ABNORMAL) Hemoglobin (HGB), POCT (08/10/2011 1:03 PM MANAGER BUSINESS CONTINUITY) [facility] Method Time Signature Hemoglobin, B 11.3 (L) 13.5 - [facility] 17.5 G/DL LABORATORIES - [facility] Specimen Anatomical Collection Method Collection Time Receive d Time (Source) Location / / Volume Laterality 08/10/2011 1:03 PM 2 1:03 MANAGER BUSINESS CONTINUITY PM MANAGER BUSINESS CONTINUITY Jung Vega Jr., M.D. LAB POCT ORDERABLES - DEVIC E Performing Organization Address City/[facility] Phon e Number [facility] LABORATORIES - [address] [phone] 05 [facility] (ABNORMAL) Glucose, POCT (08/10/2011 1:03 PM MANAGER BUSINESS CONTINUITY) Patholo gist Method Time Signature Glucose, POCT, 227 (H) 70 - 140 [facility] B MG/DL LABORATORIES - [facility] Specimen Anatomical Collection Method Collection Time Receive d Time (Source) Location / / Volume Laterality 08/10/2011 1:03 PM 2 1:03 MANAGER BUSINESS CONTINUITY PM MANAGER BUSINESS CONTINUITY Historical Provider LAB POCT ORDERABLES-MANUAL Performing Organization Address City/[facility]/ZIP Code Phon e Number [facility] LABORATORIES - [address] [phone] [facility] Activated Clotting Time (08/10/2011 1:01 PM MANAGER BUSINESS CONTINUITY) P athologist Signature Activated 591 SEC [facility] Clotting Time, LABORATORIES - POCT [facility] Specimen Anatomical Collection Method Collection Time Receive d Time (Source) Location / / Volume Laterality 08/10/2011 1:01 PM 2 1:01 MANAGER BUSINESS CONTINUITY PM MANAGER BUSINESS CONTINUITY Jung Vega Jr., M.D. LAB BLOOD ADD-ON Performing Organization Address City/[facility] Code Phon e Number [facility] LABORATORIES - [address] [phone] [facility] Activated Clotting Time (08/10/2011 12:24 PM MANAGER BUSINESS CONTINUITY) P athologist Signature Activated 664 SEC [facility] Clotting Time, LABORATORIES - POCT [facility] Specimen Anatomical Collection Method Collection Time Receive d Time (Source) Location / / Volume Laterality 08/10/2011 12:24 08/10/2011 PM MANAGER BUSINESS CONTINUITY 12:24 PM MANAGER BUSINESS CONTINUITY Jung Vega Jr., M.D. LAB BLOOD ADD-ON Performing Organization Address City/State/ZIP Code Phon e Number [facility] LABORATORIES - [address] [address] [facility] Activated Clotting Time (08/10/2011 12:07 PM MANAGER BUSINESS CONTINUITY) P athologist Signature Activated 521 SEC [facility] Clotting Time, LABORATORIES - POCT [facility] Specimen Anatomical Collection Method Collection Time Receive d Time (Source) Location / / Volume Laterality 08/10/2011 12:07 08/10/2011 PM MANAGER BUSINESS CONTINUITY 12:07 PM MANAGER BUSINESS CONTINUITY Jung Vega Jr., M.D. LAB BLOOD ADD-ON Performing Organization Address City/[facility]/ZIP Code Phon e Number [facility] - [address] [place], [place] [address] [facility] Potassium, Blood (08/10/2011 11:59 AM MANAGER BUSINESS CONTINUITY) athologist Signature Potassium, B 4.2 3.6 - 5.2 [facility] MMOL/L [facility] Comment: [place] Specimen Anatomical Collection Method Collection Time Receive d Time (Source) Location / / Volume Laterality 08/10/2011 11:59 08/10/2011 AM MANAGER BUSINESS CONTINUITY 11:59 AM MANAGER BUSINESS CONTINUITY Narrative [facility] - 08/10/2011 12:05 PM MANAGER BUSINESS CONTINUITY [place]wn [place] Historical Provider LAB BLOOD NON ADD-ON Performing Organization Address City/State/ZIP Code Phon e Number [facility] - [address] [phone] [facility] (ABNORMAL) Blood Gas with Coox, Arterial (08/10/2011 11:59 AM MANAGER BUSINESS CONTINUITY) athologist Signature pO2 204 (H) 80 - 100 [facility] MM HG [facility] Comment: [place] pCO2 36 35 - 45 MM HG [facility] [place] Comment: [place] pH 7.43 7.35 - 7.45 PH [facility] Comment: [place] Base Excess -1 -2 - 2 MMOL/L [facility] Comment: [place] HCO3 23 22 - 26 MMOL/L [facility] Comment: [place] Hb 9.4 (L) 13.5 - 17.5 G/DL [facility] [place] Comment: [place] O2Hb 96.6 94.0 - 98.0 % [facility] [place] Comment: [place] COHb <1.0 <3.0 % [facility] Comment: [place] MetHb <1.0 <1.6 % [facility] Comment: [place] CtO2 13.2 (L) 21.0 - 23.0 VOL % [facility] Comment: [place] Specimen Anatomical Collection Method Collection Time Receive d Time (Source) Location / / Volume Laterality 08/10/2011 11:59 08/10/2011 AM MANAGER BUSINESS CONTINUITY 11:59 AM MANAGER BUSINESS CONTINUITY Narrative [facility] - 08/10/2011 12:05 PM MANAGER BUSINESS CONTINUITY [place]wn [place] Historical Provider LAB BLOOD NON ADD-ON Performing Organization Address City/[facility]/ZIP Code Phon e Number [facility] LABORATORIES - [address] [phone] [facility] (ABNORMAL) Calcium, Ionized (08/10/2011 11:59 AM MANAGER BUSINESS CONTINUITY) Patholo gist Method Time Signature Calcium, 3.78 (L) 4.65 - [facility] Ionized, B 5.30 LABORATORIES - MG/DL [facility] Comment: [place] Specimen Anatomical Collection Method Collection Time Receive d Time (Source) Location / / Volume Laterality 08/10/2011 11:59 08/10/2011 AM MANAGER BUSINESS CONTINUITY 11:59 AM MANAGER BUSINESS CONTINUITY Narrative [facility] - 08/10/2011 12:05 PM MANAGER BUSINESS CONTINUITY [place]wn [place] Historical Provider LAB BLOOD NON ADD-ON Performing Organization Address City/[facility]/ZIP Code Phon e Number [facility] LABORATORIES - [address] [address] [facility] (ABNORMAL) Sodium (08/10/2011 11:59 AM MANAGER BUSINESS CONTINUITY) P athologist Signature Sodium, B 129 (L) 135 - 145 [facility] MMOL/L [facility] Comment: [place] Specimen Anatomical Collection Method Collection Time Receive d Time (Source) Location / / Volume Laterality 08/10/2011 11:59 08/10/2011 AM MANAGER BUSINESS CONTINUITY 11:59 AM MANAGER BUSINESS CONTINUITY Narrative [facility] - 08/10/2011 12:05 PM MANAGER BUSINESS CONTINUITY [place]wn [place] Historical Provider LAB BLOOD ADD-ON Performing Organization Address City/[facility]/ZIP [facility] Phon e Number [facility] LABORATORIES - [address] [phone] [facility] Glucose, Whole Blood (08/10/2011 11:59 AM MANAGER BUSINESS CONTINUITY) P athologist Signature Glucose, S 119 70 - 140 [facility] MG/DL [facility] Comment: [place] Specimen Anatomical Collection Method Collection Time Receive d Time (Source) Location / / Volume Laterality 08/10/2011 11:59 08/10/2011 AM MANAGER BUSINESS CONTINUITY 11:59 AM MANAGER BUSINESS CONTINUITY Narrative [facility] - 08/10/2011 12:05 PM MANAGER BUSINESS CONTINUITY [place]wn [place] Historical Provider LAB BLOOD TROPONIN Performing Organization Address City/[facility]/ZIP Code Phon e Number [facility] LABORATORIES - [address] [address] [facility] (ABNORMAL) Hemoglobin (HGB), POCT (08/10/2011 11:52 AM MANAGER BUSINESS CONTINUITY) [facility] Signature Hemoglobin, B 9.5 (L) 13.5 - [facility] 17.5 G/DL LABORATORIES - [facility] Specimen Anatomical Collection Method Collection Time Receive d Time (Source) Location / / Volume Laterality 08/10/2011 11:52 08/10/2011 AM MANAGER BUSINESS CONTINUITY 11:52 AM MANAGER BUSINESS CONTINUITY Jung Vega Jr., M.D. LAB POCT ORDERABLES - DEVIC E Performing Organization Address City/[facility]/ZIP Code Phon e Number [facility] LABORATORIES - [address] [address] [facility] Activated Clotting Time (08/10/2011 11:50 AM MANAGER BUSINESS CONTINUITY) P athologist Signature Activated 564 SEC [facility] Clotting Time, LABORATORIES - POCT [facility] Specimen Anatomical Collection Method Collection Time Receive d Time (Source) Location / / Volume Laterality 08/10/2011 11:50 08/10/2011 AM MANAGER BUSINESS CONTINUITY 11:50 AM MANAGER BUSINESS CONTINUITY Jung Vega Jr., M.D. LAB BLOOD ADD-ON Performing Organization Address City/[facility]/ZIP Code Phon e Number [facility] LABORATORIES - [address] [address] [facility] Activated Clotting Time (08/10/2011 11:35 AM MANAGER BUSINESS CONTINUITY) P athologist Signature Activated 394 SEC [facility] Clotting Time, LABORATORIES - POCT [facility] Specimen Anatomical Collection Method Collection Time Receive d Time (Source) Location / / Volume Laterality 08/10/2011 11:35 08/10/2011 AM MANAGER BUSINESS CONTINUITY 11:35 AM MANAGER BUSINESS CONTINUITY Jung Vega Jr., M.D. LAB BLOOD ADD-ON Performing Organization Address City/[facility]/ZIP Code Phon e Number [facility] LABORATORIES - [address] [address] [facility] HX intra-Op Auto Tx (08/10/2011 11:34 AM MANAGER BUSINESS CONTINUITY) Analysis Performed At Patho logist Time Signature HXRBC # UNITS 0.96 [facility] TRANSFUSED LABORATORIES [facility] HXRBC UNIT INFO RBC [facility] Comment: Component Type Intraoperative Salvaged R BC Unit Number =[id number] Issue Date/Time [id number] Specimen (Source) Anatomical Collection Method Collection Time Re ceived Time Location / / Volume Laterality 08/10/2011 11:34 AM MANAGER BUSINESS CONTINUITY Historical Provider LAB HISTORICAL ORDERS Performing Organization Address [facility] Phon e Number [facility] LABORATORIES - [address] [address] [facility] Activated Clotting Time (08/10/2011 11:21 AM MANAGER BUSINESS CONTINUITY) athologist Signature Activated 396 SEC [facility] Clotting Time, LABORATORIES - POCT [facility] Specimen Anatomical Collection Method Collection Time Receive d Time (Source) Location / / Volume Laterality 08/10/2011 11:21 08/10/2011 AM MANAGER BUSINESS CONTINUITY 11:21 AM MANAGER BUSINESS CONTINUITY Jung Vega Jr., M.D. LAB BLOOD ADD-ON Performing Organization Address City/[facility] Phon e Number [facility] LABORATORIES - [address] [address] [facility] Glucose, Whole Blood (08/10/2011 9:58 AM MANAGER BUSINESS CONTINUITY) athologist Signature Glucose, S 138 70 - 140 [facility] MG/DL [facility] Comment: [place] Specimen Anatomical Collection Method Collection Time Receive d Time (Source) Location / / Volume Laterality 08/10/2011 9:58 AM 2 9:58 MANAGER BUSINESS CONTINUITY AM MANAGER BUSINESS CONTINUITY Narrative [facility] - 08/10/2011 10:02 AM MANAGER BUSINESS CONTINUITY [place]wn [place] Historical Provider LAB BLOOD TROPONIN Performing Organization Address City/[facility] Phon e Number [facility] LABORATORIES - [address] [address] [facility] Sodium (08/10/2011 9:58 AM MANAGER BUSINESS CONTINUITY) athologist Signature Sodium, B 138 135 - 145 [facility] MMOL/L [facility] Comment: [place] Specimen Anatomical Collection Method Collection Time Receive d Time (Source) Location / / Volume Laterality 08/10/2011 9:58 AM 2 9:58 MANAGER BUSINESS CONTINUITY AM MANAGER BUSINESS CONTINUITY Narrative [facility] - 08/10/2011 10:01 AM MANAGER BUSINESS CONTINUITY [place]wn [place] Historical Provider LAB BLOOD ADD-ON Performing Organization Address City/[facility] Code Phon e Number [facility] - [address] (ABNORMAL) Blood Gas with Coox, Arterial (08/10/2011 9:58 AM MANAGER BUSINESS CONTINUITY) athologist Signature pO2 373 (H) 80 - 100 [facility] MM HG [facility] Comment: [place] pCO2 38 35 - 45 MM HG [facility] [place] Comment: [place] HCO3 22 22 - 26 MMOL/L [facility] Comment: [place] Hb 13.0 (L) 13.5 - 17.5 G/DL [facility] [place] Comment: [place] MetHb 1.4 <1.6 % [facility] Comment: [place] CtO2 18.7 (L) 21.0 - 23.0 VOL % [facility] Comment: [place] pH 7.38 7.35 - 7.45 PH [facility] Comment: [place]wn [place] Base Excess -3 (L) -2 - 2 MMOL/L [facility] Comment: [place] O2Hb 97.2 94.0 - 98.0 % [facility] [place] Comment: [place]wn [place] COHb 1.2 <3.0 % [facility] Comment: [place] Specimen Anatomical Collection Method Collection Time Receive d Time (Source) Location / / Volume Laterality 08/10/2011 9:58 AM 2 9:58 MANAGER BUSINESS CONTINUITY AM MANAGER BUSINESS CONTINUITY Narrative [facility] - 08/10/2011 10:02 AM MANAGER BUSINESS CONTINUITY [place] Historical Provider LAB BLOOD NON ADD-ON Performing Organization Address City/[facility] Code Phon e Number [facility] - [address] [phone] [facility] Calcium, Ionized (08/10/2011 9:58 AM MANAGER BUSINESS CONTINUITY) P athologist Signature Calcium, 4.81 4.65 - [facility] Ionized, B 5.30 MG/DL [facility] Comment: [place] Specimen Anatomical Collection Method Collection Time Receive d Time (Source) Location / / Volume Laterality 08/10/2011 9:58 AM 2 9:58 MANAGER BUSINESS CONTINUITY AM MANAGER BUSINESS CONTINUITY Narrative [facility] - 08/10/2011 10:02 AM MANAGER BUSINESS CONTINUITY [place] Historical Provider LAB BLOOD NON ADD-ON Performing Organization Address City/[facility] Phon e Number [facility] LABORATORIES - [address] [phone] [facility] Potassium, Blood (08/10/2011 9:58 AM MANAGER BUSINESS CONTINUITY) P athologist Signature Potassium, B 4.0 3.6 - 5.2 [facility] MMOL/L [facility] Comment: [place] Specimen Anatomical Collection Method Collection Time Receive d Time (Source) Location / / Volume Laterality 08/10/2011 9:58 AM 2 9:58 MANAGER BUSINESS CONTINUITY AM MANAGER BUSINESS CONTINUITY Narrative [facility] - 08/10/2011 10:02 AM MANAGER BUSINESS CONTINUITY [place] Historical Provider LAB BLOOD NON ADD-ON Performing Organization Address City/[facility] Code Phon e Number [facility] LABORATORIES - [address] [phone] [facility] (ABNORMAL) Hemoglobin (HGB), POCT (08/10/2011 9:55 AM MANAGER BUSINESS CONTINUITY) Patholo gist Method Time Signature Hemoglobin, B 13.1 (L) 13.5 - [facility] 17.5 G/DL [facility] Specimen Anatomical Collection Method Collection Time Receive d Time (Source) Location / / Volume Laterality 08/10/2011 9:55 AM 2 9:55 MANAGER BUSINESS CONTINUITY AM MANAGER BUSINESS CONTINUITY Jung Vega Jr., M.D. LAB POCT ORDERABLES - DEVIC E Performing Organization Address City/[facility] Phon e Number [facility] LABORATORIES - [address] [phone] 05 [facility] Activated Clotting Time (08/10/2011 9:55 AM MANAGER BUSINESS CONTINUITY) P athologist Signature Activated 162 SEC [facility] Clotting Time, LABORATORIES - POCT [facility] Specimen Anatomical Collection Method Collection Time Receive d Time (Source) Location / / Volume Laterality 08/10/2011 9:55 AM 2 9:55 MANAGER BUSINESS CONTINUITY AM MANAGER BUSINESS CONTINUITY Иван Morris M.D. LAB BLOOD ADD-ON Performing Organization Address City/State/ZIP Code Phon e Number [facility] LABORATORIES - [address] [place] [address] [facility] documented in this encounter Visit Diagnoses Not on filedocumented in this encounter
--- OUTSIDE RECORDS SUMMARY | 2022-03-08 10:35 | XMS_ITS | Encounter Summary ---
:[address] [facility] Address [address] [place] [address] Care Team Providers Name Role Phone Unavailable Primary Care Provider Unavailable Encounter Details Date Type Department Care Team Description 06/04/2003 Hospital Encounter HX [facility] Hillary Salazar M.D. [address] [place] [address] (Wo rk) Social History Tobacco Use Types Packs/Day Years Used Date Smoking Tobacco: Never Assessed Sex Assigned at Date Recorded Not on file documented as of this encounter Plan of Treatment Not on filedocumented as of this encounter Visit Diagnoses Not on filedocumented in this encounter
--- OUTSIDE RECORDS SUMMARY | 2022-03-08 10:35 | XMS_ITS | Encounter Summary ---
:1955 Author Organization [facility] Address [address] [place] [address] Care Team Providers Name Role Phone Unavailable [...]
--- OUTSIDE RECORDS SUMMARY | 2022-03-08 10:35 | XMS_ITS | Encounter Summary ---
:1955 Author Organization [facility] Address [address] [place] [address] Care Team Providers Name Role Phone Unavailable [...]
--- OUTSIDE RECORDS SUMMARY | 2022-03-08 10:35 | XMS_ITS | Encounter Summary ---
:1955 Author Organization [facility] Address [address] [place] [address] Care Team Providers Name Role Phone Unavailable [...]
== END 2022-03-08 10:32 | disposition home or self-care (01) ==
PROVIDERS: PCP Family Medicine; Visit Provider Family Medicine
DX: Z12.11 Encounter for screening for malignant neoplasm of colon (principal); K63.5 Polyp of colon; K57.30 Diverticulosis of large intestine without perforation or abscess without bleeding; Z86.010 Personal history of colon polyps
CPT/HCPCS: 45385; 88305; 99153; J2250; J3010